=== PATIENT | female | born 1930 | race Caucasian/White ===

== ENCOUNTER → 2017-04-11 | Outpatient (CLI) | payer MEDICARE, OTHER ==
[2013-10-21 09:55] VITALS: BMI 50.0
[~2017-04-11] MED LIST: ACE500 PO; ACET-1966 PO; ACET650T40 PO; ALE70 PO; AMLO-5 PO; AMLO-96 PO; AMLO-99 PO; ANTIBIOTIC; ASC500 PO; ASPI-1471 PO; ASPI-715 PO; ASPI81TA94 PO; ASPIRIN; ATOR20TA22 PO; ATR10 PO; AZIT-17 PO; BILB80CA2 PO; BLOO-1318 MC; CA C1TAB85 PO; CARV12.577 PO; CEFU250 PO; CEPH-13 PO; CEPH500C24 PO; CHOL10005 PO; CHOL200022 PO; CHOL200038 PO; CHOL500045 PO; CHRO200C6 PO; CHRO400T9 PO; CINN500C12 PO; CIPR-212 PO; CLI150 PO; CLON-327 PO; CRAN200C5 PO; CRAN400C2 PO; DOC100 PO; DOCU-194 PO; DOCU-416 PO; DRO400PT PO; DRON400T4 PO; EXE25PT PO; EXEM25TA4 PO; FERR27TA3 PO; FERR325T5 PO; FES4PT PO; FLU IM; FLU45SYR17 IM; FLU45SYR25 IM ONLY; FLU60SYR30 IM ONLY; FLUC150T40 PO; FOLI0.4T56 PO; FOLI0.8T29 PO; FURO-45 PO; FURO20TA19 PO; HCTZ25 PO; Hydrocortisone TP; IRON18TA2 PO; LACT1TAB19; LETPT PO; LEVO250T37 PO; LEVO250T41 PO; LEVO250T55 PO; LEVO25TA56 PO; LEVO50TA86 PO; LOSA-51 PO; LOSA-57 PO; LOSA50TA73 PO; METF-409 PO; METF-420 PO; METH1GPT PO; METH1TAB58 PO; METO-1 PO; METO-259 PO; METO50TA19 PO; NIA100 PO; NIAC500C12 PO; NIAC500C17 PO; NIAC500T85 PO; NITR50CA35 PO; NYST15PO4 TP; NYST1POW24 TOP; OLM20 PO; OLME40TA17 PO; OMEP-125 PO; OMEP-137 PO; OXYB5TAB80 PO; PER PO; PHEN200T32 PO; PIO15 PO; PIOG30TA27 PO; PIOG30TA34 PO; PNEU0.5D3 IM; PRE20 PO; PROM-100 PO; PSYL3.4P2 PO; SIMV-42 PO; SIMV-49 PO; SODI453.2 PO; SPIR1TAB26 PO; SULF-198 PO; TOLT4CAP13 PO; VALE100C2 PO; VIT-7 PO; VIT1CAPS32 PO; VITA400T7 PO; VITE400 PO; WAR5 PO; WARF-12 PO; ZINC50TA2 PO; ZINC50TA43 PO; [UNRECOGNIZED DRUG - CODE] MC; [UNRECOGNIZED DRUG - CODE] PO; [UNRECOGNIZED DRUG - CODE] PO; [UNRECOGNIZED DRUG - CODE] PO; [UNRECOGNIZED DRUG - CODE] PO; [UNRECOGNIZED DRUG - CODE] PO; [UNRECOGNIZED DRUG - CODE] PO; [UNRECOGNIZED DRUG - CODE] PO; d-3
== END ==
LOC: LAB 12:21
PROVIDERS: ATTEND Physician Assistant
DX: Z51.81 Encounter for therapeutic drug level monitoring (principal); Z79.01 Long term (current) use of anticoagulants; I48.2 Chronic atrial fibrillation
CPT/HCPCS: 36415; 82040; 82247; 82310; 82374; 82435; 82565; 82947; 83735; 84075; 84132; 84155; 84295; 84450; 84460; 84520

== ENCOUNTER 2017-05-23 09:11 | Outpatient (RCR) | payer MEDICARE, OTHER ==
[2013-10-21 09:55] VITALS: Wt 130.5 kg
[2017-05-23 09:37] VITALS: BP 168/66
--- NOTE | 2017-05-25 04:28 | [facility] ONCOLOGY NOTE ---
EVENT DATE: May 23, 2017 CHIEF COMPLAINT/REASON FOR VISIT Ms. Gibson is a pleasant 87-year-old female with stage I ER-positive breast cancer on Aromasin here for followup. ONCOLOGY HISTORY Her oncology history includes the stage I breast cancer of the left breast in March 2011, treated with a unilateral mastectomy and hormonal therapy. She did not require any chemotherapy. She did not tolerate letrozole, and we switched her to Aromasin. She is doing extremely well with this. She would like to continue it beyond the five years based on data showing ten years of use , and I think this is appropriate. She denies any side effects. She does have chronic kidney disease and now has a catheter, unfortunately. Her most recent mammogram of the right breast was negative. Overall she is feeling well, enjoys spending time with family. PAST MEDICAL/SURGICAL HISTORY 1. Atrial fibrillation. 2. Coronary artery disease. 3. Hypertension. 4. 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 5. History of colon cancer in 2003. Currently no evidence of disease. 6. Type 2 diabetes. 7. Stage I breast cancer diagnosed in March of 2011. 8. Multiple surgeries. SOCIAL HISTORY Patient is presented by herself. She has a great-grandson who is now five. FAMILY HISTORY Remarkable for diabetes in multiple family members and colon cancer in her brother. REVIEW OF SYSTEMS CONSTITUTIONAL: No fever, chills, significant weight change. HEENT: No headache or vision changes. CARDIOVASCULAR: No chest pain, dyspnea on exertion or edema. RESPIRATORY: Positive COPD. Positive chronic O2 use. GI: No nausea or vomiting. : No dysuria. She has a catheter. MUSCULOSKELETAL: Positive osteoarthritis. She lives a sedentary lifestyle. ENDOCRINE: No heat or cold intolerance. PSYCHIATRIC: No anxiety or depression. The remainder of the 14-point review of systems is otherwise negative. PHYSICAL EXAMINATION VITAL SIGNS: Blood pressure 166/66, pulse 60, respiratory rate 18, temperature 96.8 Fahrenheit. Oxygen saturation 94% on room air. Weight 130.5 kg. Pain 0/ 10. Fatigue 4/10. GENERAL: Stable condition, resting comfortably in the chair. HEENT: Normocephalic, atraumatic. CARDIOVASCULAR: Regular rate and rhythm. LUNGS: Clear. LYMPHATIC: No appreciable cervical, supraclavicular or axillary adenopathy. CHEST: Left breast mastectomy. SKIN: The patient has multiple actinic keratoses. She had a resection done on her nose, which had positive margins, but would require extensive surgery for more complete margins. Will continue to observe this. Recommend followup with her primary care provider regularly for her skin. The remainder of the physical exam otherwise unremarkable. IMPRESSION AND PLAN Ms. Gibson is a pleasant 87-year-old female with the followin. Stage I breast cancer, ER positive, currently no evidence of disease. Will continue Aromasin for another four years. She is at the six-year balta at this time. We discussed risks and benefits, and she would like to continue it. 2. History of colon cancer in 2003. Currently no evidence of disease. 3. Chronic kidney disease. 4. Hypertension. Recommend followup with her primary care provider. I answered all of her questions today. Billing Return visit level 3. Total time 30 minutes, counselling time 15. MTDD
[2017-06-01] MEDS ORDERED: NYST1POW24 TOP (10:06)
[2017-06-01] MEDS ORDERED: FLUC50TA PO (10:06)
== END 2017-06-15 14:26 | disposition home or self-care (01) ==
LOC: ONC 09:11
PROVIDERS: ATTEND Internal Medicine
DX: Z85.3 Personal history of malignant neoplasm of breast (principal); Z85.038 Personal history of other malignant neoplasm of large intestine; N18.9 Chronic kidney disease, unspecified; I12.9 Hypertensive chronic kidney disease with stage 1 through stage 4 chronic kidney disease, or unspecified chronic kidney disease; J44.9 Chronic obstructive pulmonary disease, unspecified; Z99.81 Dependence on supplemental oxygen; L57.0 Actinic keratosis
CPT/HCPCS: 99212

== ENCOUNTER → 2017-06-30 | Outpatient (CLI) | payer MEDICARE, OTHER ==
[2013-10-21 09:55] VITALS: BMI 50.0
[~2017-06-30] MED LIST changes: +FLUC50TA PO
[2017-06-30 11:39] LABS: PLATELET COUNT, AUTOMATED 191 K/uL (150-450)
== END ==
LOC: LAB 10:45
PROVIDERS: ATTEND Internal Medicine Nephrology
DX: I12.9 Hypertensive chronic kidney disease with stage 1 through stage 4 chronic kidney disease, or unspecified chronic kidney disease (principal); N18.3 Chronic kidney disease, stage 3 (moderate); D63.8 Anemia in other chronic diseases classified elsewhere; N25.81 Secondary hyperparathyroidism of renal origin
CPT/HCPCS: 82040; 82306; 82310; 82374; 82435; 82565; 82947; 83970; 84100; 84132; 84295; 84520; 85025

== ENCOUNTER → 2017-07-04 | Outpatient (REF) | payer MEDICARE, OTHER ==
[2013-10-21 09:55] VITALS: BMI 50.0
== END ==
LOC: ZZSENDIN 15:18
PROVIDERS: ATTEND Internal Medicine Nephrology
DX: N25.81 Secondary hyperparathyroidism of renal origin (principal); D63.8 Anemia in other chronic diseases classified elsewhere; N18.3 Chronic kidney disease, stage 3 (moderate); I12.9 Hypertensive chronic kidney disease with stage 1 through stage 4 chronic kidney disease, or unspecified chronic kidney disease
CPT/HCPCS: 82570; 84156

== ENCOUNTER → 2017-07-06 | Outpatient (CLI) | payer MEDICARE, OTHER ==
[2013-10-21 09:55] VITALS: BMI 50.0
== END ==
LOC: LAB 14:38
PROVIDERS: ATTEND Internal Medicine Nephrology
DX: N18.4 Chronic kidney disease, stage 4 (severe) (principal); R80.9 Proteinuria, unspecified
CPT/HCPCS: 36415; 83883; 86334

== ENCOUNTER → 2017-11-08 | Outpatient (CLI) | payer MEDICARE, OTHER ==
[2013-10-21 09:55] VITALS: BMI 50.0
[~2017-11-08] MED LIST changes: -METF-420 PO; +METF-421 PO
--- NOTE | 2017-11-08 13:46 | RADIOLOGY IMAGING REPORT ---
FACILITY: [facility] [place] PATIENT NAME: Heather Gibson : 1930 MR: [id number] V: [id number] EXAM DATE: ORDERING PHYSICIAN: ZA GUAN TECHNOLOGIST: [facility] Patient: Heather Gibson : 1930 Visit/Account:[id number] Date of Sevice: 11/08/2017 KIDNEYS EXAMINATION: Renal ultrasound. History: Renal insufficiency stage IV, Ramos catheter present COMPARISON STUDIES: October 28, 2016 FINDINGS: Kidneys: Right kidney- 10.7 x 6.9 x 6.3 cmThere is a lobular contour to the right kidney. Also noted Is a 1.3 cm cyst in the midpole Left kidney- 10.9 x 5.6 x 5.2 cm. cm there is a lobular contour to the left kidney. There is a solid heterogeneous mass lower pole the left kidney measuring 3.4 x 3.1 x 2.7 cm. This appears to be incr eased in size when compared to the prior CT from November 19, 2015 at which time the mass measured 2.2 x 2.6 cm. Uniform and symmetric blood flow in each kidney by Doppler ultrasound. Hydronephrosis: none Bladder: Bladder is decompressed with a Ramos catheter Abdominal aorta and IVC: Aorta and IVC are patent by Doppler ultrasound. IMPRESSION: There is a solid heterogeneous mass projecting from the lower pole the left kidney measuring 3.4 x 3. 1 x 2.7 cm. This is increased in size when compared the prior CT from November 19, 2015 and is concern ing for neoplasm Report Dictated By: Daxa Solorzano MD at 11/08/2017 1:36 PM Report E-Signed By: Daxa Solorzano MD at 11/08/2017 1:41 PM WSN:[id number]
== END ==
LOC: US 01:28
PROVIDERS: ATTEND Urology
DX: N28.89 Other specified disorders of kidney and ureter (principal); N28.1 Cyst of kidney, acquired
CPT/HCPCS: 76705

== ENCOUNTER 2017-12-12 10:59 | Outpatient (RCR) | payer MEDICARE, OTHER ==
[2013-10-21 09:55] VITALS: Wt 129.3 kg
[~2017-12-12 10:59] MED LIST changes: +AMLO-111 PO; +AMLO-113 PO; -AMLO-96 PO; -AMLO-99 PO; +CHOL200018 PO; -CHOL200022 PO; -DOCU-194 PO; +DOCU100C56 PO; -METF-421 PO; +METF-452 PO
[2017-12-12 11:19] VITALS: BP 166/69
[2017-12-12 11:21] LABS: PLATELET COUNT, AUTOMATED 183 K/uL (150-450)
[2017-12-13] MEDS ORDERED: INFLUENZA VIRUS VAC 0.5ML SYR IM ONLY ONE (09:50)
[2017-12-13 10:12] VITALS: BP 163/62
--- NOTE | 2017-12-13 22:50 | ONCOLOGY FOLLOW UP NOTE ---
EVENT DATE: December 12, 2017 CHIEF COMPLAINT/REASON FOR VISIT Ms. Gibson is a pleasant, 87-year-old female with a history of stage I, ER- positive breast cancer, on Aromasin, here for followup. HISTORY OF PRESENT ILLNESS Her oncology history is outlined below. She is overall doing quite well. No new issues. She is here with her daughter today, and we discussed her history in more detail today as I have not met her before. ONCOLOGY HISTORY Her oncology history includes the stage I breast cancer of the left breast in March 2011, treated with a unilateral mastectomy and hormonal therapy. She did not require any chemotherapy. She did not tolerate letrozole, and we switched her to Aromasin. She is doing extremely well with this. She would like to continue it beyond the five years based on data showing 10 years of use, and I think this is appropriate. She denies any side effects. She does have chronic kidney disease and now has a catheter, unfortunately. Her most recent mammogram of the right breast was negative. Overall she is feeling well, enjoys spending time with family. PAST MEDICAL/SURGICAL HISTORY 1. Atrial fibrillation. 2. Coronary artery disease. 3. Hypertension. 4. 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 5. History of colon cancer in 2003. Currently, no evidence of disease. 6. Type 2 diabetes. 7. Stage I breast cancer diagnosed in March of 2011. 8. Multiple surgeries. SOCIAL HISTORY Patient is presented by herself. She has a great-grandson who is now five. FAMILY HISTORY Remarkable for diabetes in multiple family members and colon cancer in her brother. REVIEW OF SYSTEMS CONSTITUTIONAL: No fever, chills, significant weight change. HEENT: No headache or vision changes. CARDIOVASCULAR: No chest pain, dyspnea on exertion, or edema. RESPIRATORY: Positive COPD. Positive chronic O2 use. GASTROINTESTINAL: No nausea or vomiting. GENITOURINARY: No dysuria. She has a catheter. MUSCULOSKELETAL: Positive osteoarthritis. She lives a sedentary lifestyle. ENDOCRINE: No heat or cold intolerance. PSYCHIATRIC: No anxiety or depression. The remainder of the 14-point review of systems is otherwise negative. PHYSICAL EXAMINATION VITAL SIGNS: Blood pressure 166/59, pulse 60, respiratory rate 16, temperature 97.6 Fahrenheit, oxygen saturation 94% on 2L. Weight 129.3 kg which is stable compared to six months ago. Pain zero/10. Fatigue zero/10. GENERAL: Stable condition, resting comfortably in the chair. HEENT: Normocephalic, atraumatic. CARDIOVASCULAR: Regular rate and rhythm, but distant heart sounds due to body habitus. ABDOMEN: Soft, obese. EXTREMITIES: No clubbing or cyanosis. LYMPHATIC: No appreciable cervical, supraclavicular, or axillary adenopathy. Remainder of physical exam otherwise unremarkable. IMPRESSION/REPORT/PLAN Ms. Gibson is a pleasant, 87-year-old female with the followin. Stage I, ER-positive breast cancer. 2. History of colon cancer in 2003. 3. Chronic kidney disease. 4. Hypertension. 5. Obesity. She will continue on Aromasin for another four years approximately. The benefits outweigh the risks, and she agrees. She is having "no side effects" with it. I would like to see her every six months. I answered all her questions today. BILLING Return visit level 4. Total time 30 minutes, counselling time 20. Family meeting today. FERMÍN
[2017-12-15] MEDS ORDERED: FLUC50TA PO (16:48)
== END 2018-01-18 08:20 | disposition home or self-care (01) ==
LOC: SPU 10:59
PROVIDERS: ATTEND Internal Medicine
DX: C50.912 Malignant neoplasm of unspecified site of left female breast (principal); Z17.0 Estrogen receptor positive status [ER+]; Z79.811 Long term (current) use of aromatase inhibitors; N18.9 Chronic kidney disease, unspecified; J44.9 Chronic obstructive pulmonary disease, unspecified; Z99.81 Dependence on supplemental oxygen; E11.9 Type 2 diabetes mellitus without complications; Z85.038 Personal history of other malignant neoplasm of large intestine; I10 Essential (primary) hypertension; Z23 Encounter for immunization
CPT/HCPCS: 36415; 85025; 90471; Q2037; 82040; 82247; 82310; 82374; 82435; 82565; 82947; 84075; 84132; 84155; 84295; 84450; 84460; 84520; 90674

== ENCOUNTER → 2017-12-13 | Outpatient (CLI) | payer MEDICARE, OTHER ==
[2013-10-21 09:55] VITALS: BMI 50.0
== END ==
LOC: SPU 08:34
PROVIDERS: ATTEND Urology
DX: C50.912 Malignant neoplasm of unspecified site of left female breast (principal); Z17.0 Estrogen receptor positive status [ER+]

== ENCOUNTER → 2018-03-01 | Outpatient (CLI) | payer MEDICARE, OTHER ==
[2013-10-21 09:55] VITALS: BMI 50.0
[2018-03-01 10:43] LABS: PLATELET COUNT, AUTOMATED 194 K/uL (150-450)
== END ==
LOC: LAB 10:19
PROVIDERS: ATTEND Internal Medicine
DX: I48.91 Unspecified atrial fibrillation (principal); N18.9 Chronic kidney disease, unspecified; E78.00 Pure hypercholesterolemia, unspecified; E11.9 Type 2 diabetes mellitus without complications
CPT/HCPCS: 36415; 82040; 82247; 82306; 82310; 82374; 82435; 82465; 82565; 82947; 83036; 83718; 84075; 84132; 84155; 84295; 84439; 84443; 84450; 84460; 84478; 84520; 85025

== ENCOUNTER → 2018-05-05 | Outpatient (REF) | payer MEDICARE, OTHER ==
[2013-10-21 09:55] VITALS: BMI 50.0
[~2018-05-05] MED LIST changes: -AMLO-111 PO; -AMLO-113 PO; +AMLO-125 PO; +AMLO-127 PO
== END ==
LOC: ZZSENDIN 13:26
PROVIDERS: ATTEND Internal Medicine Cardiovascular Disease
DX: R82.90 Unspecified abnormal findings in urine (principal); B96.1 Klebsiella pneumoniae [K. pneumoniae] as the cause of diseases classified elsewhere
CPT/HCPCS: 81001; 87077; 87088; 87186

== ENCOUNTER 2018-05-22 16:41 | Inpatient (IN) | payer MEDICARE, OTHER ==
[~2018-05-22] VITALS: Ht 160 cm; Wt 138.3 kg
[~2018-05-22 16:41] MED LIST changes: -HYDR25TA66 PO
[2018-05-22] MEDS ORDERED: NS(*) 0.9% 500 ML BAG 500 ML IV ONE (16:42)
--- NOTE | 2018-05-22 16:42 | ER Report ---
History and Physical Time Seen By MD: 16:42 HPI/ROS CHIEF COMPLAINT: Nausea and vomiting HISTORY OF PRESENT ILLNESS: This is an 88-year-old female who presents emergency department via EMS for nausea and vomiting. Patient was diagnosed with a urinary tract infection yesterday, started on "some antibiotic", and then began to have severe nausea and vomiting last night and continued throughout the night and today, called EMS for emergent transport to the emergency department. Patient arrives with severe nausea, no vomiting at this time. She denies shortness of breath or chest pain. Last bowel movement was yesterday, nothing today, patient states she typically has BMs on a daily basis. No fevers or chills. No rashes. She does state that her urine is turning blue in her Ramos bag. Does have a history of stage IV renal disease. REVIEW OF SYSTEMS: Constitutional: No fever, no chills. Eyes: No discharge. ENT: No sore throat. Cardiovascular: No chest pain, no palpitations. Respiratory: No cough, no shortness of breath. Gastrointestinal: As above. Genitourinary: As above. Musculoskeletal: No back pain. Skin: No rashes. Neurological: No headache. Allergies: Coded Allergies: morphine (Verified Allergy, Severe, dyspnea, 10/11/13) DECREASED RESPIRATORY RATE "AUTO REFLEX STOPS WORKING" letrozole (Unverified Allergy, Mild, itchy, hives, 10/12/13) SALO Inhibitors (Unverified Allergy, Unknown, 10/12/13) codeine (Verified Adverse Reaction, Mild, NAUSEA/VOMITING, 10/11/13) Home Meds Active Scripts Simvastatin (SIMVASTATIN) 20 Mg Tablet, 1 TAB PO HS, #90 TAB 3 Refills Prov:FERNIE REID MD 05/09/18 Omeprazole (OMEPRAZOLE) 20 Mg Capsule.dr, 1 CAP PO DAILY PRN for REFLUX, #90 CAP 3 Refills Prov:FERNIE REID MD 03/01/18 Exemestane (AROMASIN) 25 Mg Tab, 25 MG PO QHS, #90 TAB 3 Refills Prov:AASHISH REEVES MD 02/22/18 Levothyroxine Sodium (LEVOTHYROXINE SODIUM) 50 Mcg Tablet, 1 TAB PO QDAY, #90 TAB 3 Refills Prov:FERNIE REID MD 6/5/18 Furosemide (FUROSEMIDE) 20 Mg Tablet, 1 TAB PO QDAY, #30 TAB 5 Refills Prov:FERNIE REID MD 07/06/17 Amlodipine Besylate (AMLODIPINE BESYLATE) 10 Mg Tablet, 1 TAB PO QDAY, #90 TAB 4 Refills TAKE ONE TABLET BY MOUTH EVERY DAY Prov:FERNIE REID MD 03/10/17 One Touch Ultra Test Strips (ONE TOUCH ULTRA TEST STRIPS) 1 Each Strip, 1 EACH MC QDAY, #100 STRIP 3 Refills Use once a day to test blood sugar Prov:FERNIE REID MD 11/05/15 Aspirin (ASPIRIN) 81 Mg Tab.chew, 81 MG PO 3XW, #100 TAB.CHEW 4 Refills TAKE 1 TABLET BY MOUTH EVERY DAY Prov:EILEEN REED MD 04/10/14 Reported Medications Methenamine Hippurate (METHENAMINE HIPPURATE) 1 Gm Tablet, 1 GM PO BID 03/01/18 Cholecalciferol (Vitamin D3) (VITAMIN D3) 1,000 Unit Tablet, 1000 UNIT PO QDAY, TAB 01/14/16 Psyllium Seed (METAMUCIL) 1 Each Packet, 1 PACK PO QDAY, PACKET 07/08/15 Acetaminophen (ACETAMINOPHEN) 650 Mg Tablet.er, 1 TAB PO Q8H, TAB 11/08/14 Dronedarone Hcl (MULTAQ) 400 Mg Tablet, 1 TAB PO DAILY, #90 TAB 3 Refills 04/10/14 Cranberry Extract (CRANBERRY) 200 Mg Capsule, 84 MG PO DAILY, CAPSULE 11/13/13 Past Medical/Surgical History The patient has a past medical and surgical history of A. fib, pacemaker, congestive heart failure, hypertension, history of smoking, continue his oxygen use, gallstones, indwelling urinary catheter, progressive renal disease, arthritis, osteoporosis, right ankle fracture, left tibia fracture, chronic back pain, wears glasses, type II diabetes controlled with medications, on Coumadin, colon cancer, chemotherapy for colon cancer, colon resection, bilateral total knee replacements, tonsillectomy, cataract surgery. Reviewed Nurses Notes: Yes Hx Smoking: No Smoking Status: Former Smoker Hx Substance Use Disorder: No Hx Alcohol Use: No Constitutional Vital Sign - Last 24 Hours 05/22/18 05/22/18 05/22/18 05/22/18 16:41 16:43 16:54 16:56 Temp 97.8 Pulse ??? 62 65 Resp 18 B/P (MAP) 154/141 (145) 154/141 Pulse Ox 63 91 O2 Delivery Room Air 05/22/18 05/22/18 05/22/18 05/22/18 16:57 17:11 17:26 17:35 Pulse 60 62 Resp 25 12 B/P (MAP) 143/52 (82) 147/61 (89) Pulse Ox 89 92 05/22/18 05/22/18 05/22/18 05/22/18 17:41 17:55 17:56 18:11 Pulse 59 ? Resp 12 18 Pulse Ox 94 62 O2 Flow Rate 3.0 05/22/18 05/22/18 05/22/18 05/22/18 18:26 18:31 19:01 19:31 Pulse 62 62 63 ??? Resp 12 20 14 35 Pulse Ox 92 89 94 81 05/22/18 19:36 Pulse 63 Resp 17 Pulse Ox 88 Physical Exam General Appearance: The patient is alert, has no immediate need for airway protection and no signs of toxicity. Eyes: Pupils equal and round no pallor or injection. ENT, Mouth: Mucous membranes are moist. Respiratory: There are no retractions, lungs are clear to auscultation. Cardiovascular: Regular rate and rhythm, very distant, systolic murmur, no clicks or rubs. Gastrointestinal: Abdomen is very round, nontender, hypoactive bowel sounds, no masses, no abdominal bruits. Neurological: Alert and oriented 4. Moving all extremities. Following all commands. No focal neuro deficits. Skin: Warm and dry, no rashes. Musculoskeletal: Neck is supple non tender. Extremities are nontender, nonswollen and have full range of motion. DIFFERENTIAL DIAGNOSIS: After history and physical exam differential diagnosis was considered for urosepsis, pneumonia, gastroenteritis, bowel obstruction, myocardial infarction. Medical Decision Making Data Points Result Diagram: 05/22/18 1735 05/22/18 1735 Laboratory Hematology Test 05/22/18 17:10 05/22/18 17:35 05/22/18 18:00 Influenza Virus Type A (PCR) Negative (NEGATIVE) Influenza Virus Type B (PCR) Negative (NEGATIVE) Red Blood Count 3.69 M/uL (4.17-5.56) Mean Corpuscular Volume 94.9 fL (80.0-96.0) Mean Corpuscular Hemoglobin 30.9 pg (26.0-33.0) Mean Corpuscular Hemoglobin Concent 32.6 g/dL (32.0-36.0) Red Cell Distribution Width 14.3 % (11.5-14.5) Mean Platelet Volume 9.0 fL (7.2-11.1) Neutrophils (%) (Auto) 79.8 % (39.4-72.5) Lymphocytes (%) (Auto) 9.1 % (17.6-49.6) Monocytes (%) (Auto) 10.5 % (4.1-12.4) Eosinophils (%) (Auto) 0.3 % (0.4-6.7) Basophils (%) (Auto) 0.3 % (0.3-1.4) Nucleated RBC Relative Count (auto) 0.0 /100WBC Neutrophils # (Auto) 5.1 K/uL (2.0-7.4) Lymphocytes # (Auto) 0.6 K/uL (1.3-3.6) Monocytes # (Auto) 0.7 K/uL (0.3-1.0) Eosinophils # (Auto) 0.0 K/uL (0.0-0.5) Basophils # (Auto) 0.0 K/uL (0.0-0.1) Nucleated RBC Absolute Count (auto) 0.00 K/uL Sodium Level 138 mmol/L (137-145) Potassium Level 4.6 mmol/L (3.5-5.0) Chloride Level 101 mmol/L (98-107) Carbon Dioxide Level 25 mmol/L (22-31) Blood Urea Nitrogen 49 mg/dl (7-18) Creatinine 2.70 mg/dl (0.52-1.04) Glomerular Filtration Rate Calc 16.7 Random Glucose 137 mg/dl (75-110) Calcium Level 9.5 mg/dl (8.4-10.2) Total Bilirubin 0.4 mg/dl (0.2-1.3) Aspartate Amino Transf (AST/SGOT) 38 U/L (0-35) Alanine Aminotransferase (ALT/SGPT) 33 U/L (0-56) Alkaline Phosphatase 92 U/L (0-126) Troponin I 0.022 ng/ml Total Protein 7.0 g/dl (6.3-8.2) Albumin 3.8 g/dl (3.5-5.0) Lipase 38 U/L (23-300) Urine Color Yellow Urine Clarity Cloudy Urine pH 7.0 pH (4.8-9.5) Urine Specific [place] 1.018 Urine Protein 100 mg/dL (NEGATIVE) Urine Glucose (UA) Negative mg/dL (NEGATIVE) Urine Ketones Negative mg/dL (NEGATIVE) Urine Blood Negative (NEGATIVE) Urine Nitrite Negative (NEGATIVE) Urine Bilirubin Negative (NEGATIVE) Urine Urobilinogen 2.0 mg/dL (0.2-1.9) Urine Leukocyte Esterase Moderate (NEGATIVE) Urine RBC None /HPF (0-2/HPF) Urine WBC 43 /HPF (0-5/HPF) Urine WBC Clumps Few /HPF Urine Squamous Epithelial Cells Many /LPF (</=FEW) Urine Amorphous Crystals Few /HPF Urine Bacteria Moderate /HPF (NONE-FEW) Urine Mucus Few /HPF (NONE-FEW) Chemistry Test 05/22/18 17:10 05/22/18 17:35 05/22/18 18:00 Influenza Virus Type A (PCR) Negative (NEGATIVE) Influenza Virus Type B (PCR) Negative (NEGATIVE) White Blood Count 6.4 k/uL (4.5-11.0) Red Blood Count 3.69 M/uL (4.17-5.56) Hemoglobin 11.4 g/dL (12.0-16.0) Hematocrit 35.0 % (34.0-47.0) Mean Corpuscular Volume 94.9 fL (80.0-96.0) Mean Corpuscular Hemoglobin 30.9 pg (26.0-33.0) Mean Corpuscular Hemoglobin Concent 32.6 g/dL (32.0-36.0) Red Cell Distribution Width 14.3 % (11.5-14.5) Platelet Count 190 K/uL (150-450) Mean Platelet Volume 9.0 fL (7.2-11.1) Neutrophils (%) (Auto) 79.8 % (39.4-72.5) Lymphocytes (%) (Auto) 9.1 % (17.6-49.6) Monocytes (%) (Auto) 10.5 % (4.1-12.4) Eosinophils (%) (Auto) 0.3 % (0.4-6.7) Basophils (%) (Auto) 0.3 % (0.3-1.4) Nucleated RBC Relative Count (auto) 0.0 /100WBC Neutrophils # (Auto) 5.1 K/uL (2.0-7.4) Lymphocytes # (Auto) 0.6 K/uL (1.3-3.6) Monocytes # (Auto) 0.7 K/uL (0.3-1.0) Eosinophils # (Auto) 0.0 K/uL (0.0-0.5) Basophils # (Auto) 0.0 K/uL (0.0-0.1) Nucleated RBC Absolute Count (auto) 0.00 K/uL Glomerular Filtration Rate Calc 16.7 Calcium Level 9.5 mg/dl (8.4-10.2) Total Bilirubin 0.4 mg/dl (0.2-1.3) Aspartate Amino Transf (AST/SGOT) 38 U/L (0-35) Alanine Aminotransferase (ALT/SGPT) 33 U/L (0-56) Alkaline Phosphatase 92 U/L (0-126) Troponin I 0.022 ng/ml Total Protein 7.0 g/dl (6.3-8.2) Albumin 3.8 g/dl (3.5-5.0) Lipase 38 U/L (23-300) Urine Color Yellow Urine Clarity Cloudy Urine pH 7.0 pH (4.8-9.5) Urine Specific [place] 1.018 Urine Protein 100 mg/dL (NEGATIVE) Urine Glucose (UA) Negative mg/dL (NEGATIVE) Urine Ketones Negative mg/dL (NEGATIVE) Urine Blood Negative (NEGATIVE) Urine Nitrite Negative (NEGATIVE) Urine Bilirubin Negative (NEGATIVE) Urine Urobilinogen 2.0 mg/dL (0.2-1.9) Urine Leukocyte Esterase Moderate (NEGATIVE) Urine RBC None /HPF (0-2/HPF) Urine WBC 43 /HPF (0-5/HPF) Urine WBC Clumps Few /HPF Urine Squamous Epithelial Cells Many /LPF (</=FEW) Urine Amorphous Crystals Few /HPF Urine Bacteria Moderate /HPF (NONE-FEW) Urine Mucus Few /HPF (NONE-FEW) Urinalysis Test 05/22/18 18:00 Urine Color Yellow Urine Clarity Cloudy Urine pH 7.0 pH (4.8-9.5) Urine Specific [place] 1.018 Urine Protein 100 mg/dL (NEGATIVE) Urine Glucose (UA) Negative mg/dL (NEGATIVE) Urine Ketones Negative mg/dL (NEGATIVE) Urine Blood Negative (NEGATIVE) Urine Nitrite Negative (NEGATIVE) Urine Bilirubin Negative (NEGATIVE) Urine Urobilinogen 2.0 mg/dL (0.2-1.9) Urine Leukocyte Esterase Moderate (NEGATIVE) Urine RBC None /HPF (0-2/HPF) Urine WBC 43 /HPF (0-5/HPF) Urine WBC Clumps Few /HPF Urine Squamous Epithelial Cells Many /LPF (</=FEW) Urine Amorphous Crystals Few /HPF Urine Bacteria Moderate /HPF (NONE-FEW) Urine Mucus Few /HPF (NONE-FEW) EKG/Imaging EKG Interpretation 12 lead EKG: Time of EKG 1647. Rhythm: Atrial paced rhythm, rate of 65 bpm. [place]: normal QRS: normal ST segments: Appears to be ST elevation in V2, V3 and V4, this is consistent with the patient's previous EKG from 10/11/2013 EKG. No reciprocal changes noted. Imaging Location: [facility] Patient: Heather Gibson : 1930 Visit/Account:[id number] Date of Sevice: 05/22/2018 EXAMINATION: Abdominal series HISTORY: Nausea/vomiting. No bowel movement since yesterday. COMPARISON: CT of the abdomen and pelvis from 11/19/2015 FINDINGS: PA upright view of the chest, AP supine and AP upright views of the abdomen are obtained. Lines/tubes: Right subclavian approach pacer with lead tips in the plane of the right atrium and right ventricle. There are also abandoned left subclavian approach pacer leads which terminate in the right atrium and right ventricle. Bowel gas pattern: Multiple air-fluid levels are seen within the bowel. No dilated loops of small bowel are seen. There is gas and a small to moderate stool content within the large bowel. No evidence of intraperitoneal free air. Soft tissues: Negative. Bony structures: Multilevel disc and facet degenerative changes in the spine. Chest: No focal consolidation or significant pleural effusion. No evidence of pneumothorax. Normal heart size. Calcified plaque at the aortic arch. Pulmonary vascularity is within normal limits. IMPRESSION: Nonspecific bowel gas pattern with multiple air-fluid levels noted within the bowel. No dilated loops of bowel are seen to suggest obstruction. No evidence of intraperitoneal free air. Report Dictated By: Lul Marie MD at 05/22/2018 7:17 PM Report E-Signed By: Lul Marie MD at 05/22/2018 7:22 PM WSN:[id number] ED Course/Re-evaluation Clinical Indication for ER IV: Hydration, IV Access ED Course The patient was admitted to room. A history and physical were obtained. Differential diagnoses were considered. An IV was started. A CBC, CMP were obtained. A 500 mL normal saline bolus was given A UA was collected from the patient's catheter.CBC the white count however there is a left shift, BUN 49, creatinine 2.7, this is consistent with the patient's diagnosis of renal disease, historically she has been around the same level, catheter UA showing moderate leukocyte esterase, 43 white blood cells, epithelial cells urine samra teria. Negative influenza. Abdominal series showing Nonspecific bowel gas pattern with multiple air-fluid levels noted within the bowel. No dilated loops of bowel are seen to suggest obstruction. No evidence of intraperitoneal free air. I did review the laboratory studies and nonobstructive bowel series with the patient and her daughter. As the patient has had over 24 hours of nausea and vomiting with increased weakness and inability to mobilize at home on her own I did recommend admission to the hospital. It is because Dr. Avendano, the hospitalist on-call, he is accepting the patient into the hospital services for weakness and nausea and vomiting. Patient was agreeable with this plan of care, was admitted from the ER to the medical surgical floor. Also to note the patient's room air saturation upon arrival was 63%, she is supposed be wearing her oxygen round the clock. Once she was on 3 L nasal cannula, her oxygen saturations did improve, into the low 90s. 05/22/2018 7:42:37 pm I did speak with Dr. Avendano, hospitalist on-call, he's agreed to admit the patient for weakness, nausea and vomiting. Decision to Disposition Date: May 22, 2018 Decision to Disposition Time: 19:41 Depart Departure Latest Vital Signs Vital Signs Date Time Temp Pulse Resp B/P (MAP) Pulse Ox O2 Delivery O2 Flow Rate FiO2 05/22/18 19:36 63 17 88 3/4/19 17:55 3.0 05/22/18 17:35 147/61 (89) 05/22/18 16:54 97.8 Room Air Impression: Primary Impression: Weakness generalized Additional Impression: Nausea and vomiting Condition: Improved Disposition: Admitted from ER Referrals: FERNIE REID MD (PCP) Problem Qualifiers Additional Impression: Nausea and vomiting Vomiting type: unspecified Vomiting Intractability: unspecified Qualified Codes: R11.2 - Nausea with vomiting, unspecified JOSE STAFFORD [employer] REPA[employer]ER- May 22, 2018 16:42
[2018-05-22] MEDS ORDERED: ONDANSETRON 4 MG/2 ML VIAL IVP ONE (16:45)
--- NOTE | 2018-05-22 16:59 | EKG ---
FACILITY: [facility] [place] PATIENT NAME: LOYDA SALDAÑA : [id number] MR: [id number] V: [id number] EXAM DATE: ORDERING PHYSICIAN: JOSE STAFFORD TECHNOLOGIST: DONALD Caputo Reason : NAUSEA Blood Pressure : / mmHG Vent. Rate : 065 BPM Atrial Rate : 065 BPM P-R Int : 170 ms QRS Dur : 136 ms QT Int : 454 ms P-R-T Axes : 056 103 096 degrees QTc Int : 472 ms Electronic atrial pacemaker Nonspecific intraventricular block Anterolateral infarct , age undetermined Abnormal ECG When compared with ECG of 11-OCT-2013 09:52, Anterior infarct is now present Anterolateral infarct is now present Confirmed by ISABELLA HO ([id number]) on 05/22/2018 10:15:53 PM Referred By: RICO Confirmed By:ISABELLA HO
[2018-05-22 17:44] LABS: PLATELET COUNT, AUTOMATED 190 K/uL (150-450)
--- NOTE | 2018-05-22 19:27 | RADIOLOGY IMAGING REPORT ---
FACILITY: [facility] PATIENT NAME: Heather Gibson : 1930 MR: [id number] V: [id number] EXAM DATE: ORDERING PHYSICIAN: JOSE STAFFORD TECHNOLOGIST: [place] [facility] [place]: Heather Gibson : 1930 Visit/Account:[id number] Date of Sevice: 05/22/2018 EXAMINATION: Abdominal series HISTORY: Nausea/vomiting. No bowel movement since yesterday. COMPARISON: CT of the abdomen and pelvis from 11/19/2015 FINDINGS: PA upright view of the chest, AP supine and AP upright views of the abdomen are obtained. Lines/tubes: Right subclavian approach pacer with lead tips in the plane of the right atrium and rig ht ventricle. There are also abandoned left subclavian approach pacer leads which terminate in the ri ght atrium and right ventricle. Bowel gas pattern: Multiple air-fluid levels are seen within the bowel. No dilated loops of small breanna wel are seen. There is gas and a small to moderate stool content within the large bowel. No evidence of intraperitoneal free air. Soft tissues: Negative. Bony structures: Multilevel disc and facet degenerative changes in the spine. Chest: No focal consolidation or significant pleural effusion. No evidence of pneumothorax. Normal h eart size. Calcified plaque at the aortic arch. Pulmonary vascularity is within normal limits. IMPRESSION: Nonspecific bowel gas pattern with multiple air-fluid levels noted within the bowel. No dilated loops of bowel are seen to suggest obstruction. No evidence of intraperitoneal free air. Report Dictated By: Lul Marie MD at 05/22/2018 7:17 PM Report E-Signed By: Lul Marie MD at 05/22/2018 7:22 PM WSN:[id number]
[2018-05-22 21:02] VITALS: BP 165/68
[2018-05-22] MEDS ORDERED: INFLUENZA VIRUS VAC 0.5ML SYR IM ONLY ONE (21:30)
--- NOTE | 2018-05-22 21:50 | History & Physical ---
History of Present Illness Chief Complaint Nausea and vomiting History of Present Illness This patient presented to the emergency room complaining of nausea and vomiting over the last 24hrs. She also noted that her urine turned blue. She called Dr. Kramer's office and was placed on Bactrim for a suspected UTI. She did not improve and presented to the emergency room for further evaluation. History Problems: (1) Hypothyroid Status: Chronic (2) Chronic renal disease Status: Chronic (3) Malignant neoplasm of breast (female), unspecified site Status: Chronic (4) Hypertension, benign Status: Chronic Home Meds Active Scripts Simvastatin (SIMVASTATIN) 20 Mg Tablet, 1 TAB PO HS, #90 TAB 3 Refills Prov:FERNIE REID MD 05/09/18 Omeprazole (OMEPRAZOLE) 20 Mg Capsule.dr, 1 CAP PO DAILY PRN for REFLUX, #90 CAP 3 Refills Prov:FERNIE REID MD 03/01/18 Exemestane (AROMASIN) 25 Mg Tab, 25 MG PO QHS, #90 TAB 3 Refills Prov:AASHISH REEVES MD 02/22/18 Levothyroxine Sodium (LEVOTHYROXINE SODIUM) 50 Mcg Tablet, 1 TAB PO QDAY, #90 TAB 3 Refills Prov:FERNIE REID MD 08/23/17 Furosemide (FUROSEMIDE) 20 Mg Tablet, 1 TAB PO QDAY, #30 TAB 5 Refills Prov:FERNIE REID MD 07/06/17 Amlodipine Besylate (AMLODIPINE BESYLATE) 10 Mg Tablet, 1 TAB PO QDAY, #90 TAB 4 Refills TAKE ONE TABLET BY MOUTH EVERY DAY Prov:FERNIE REID MD 03/10/17 One Touch Ultra Test Strips (ONE TOUCH ULTRA TEST STRIPS) 1 Each Strip, 1 EACH MC QDAY, #100 STRIP 3 Refills Use once a day to test blood sugar Prov:FERNIE REID MD 11/05/15 Reported Medications Methenamine Hippurate (METHENAMINE HIPPURATE) 1 Gm Tablet, 1 GM PO BID 03/01/18 Cholecalciferol (Vitamin D3) (VITAMIN D3) 1,000 Unit Tablet, 1000 UNIT PO QDAY, TAB 01/14/16 Psyllium Seed (METAMUCIL) 1 Each Packet, 1 PACK PO QDAY, PACKET 07/08/15 Acetaminophen (ACETAMINOPHEN) 650 Mg Tablet.er, 1 TAB PO Q8H, TAB 11/08/14 Dronedarone Hcl (MULTAQ) 400 Mg Tablet, 1 TAB PO DAILY, #90 TAB 3 Refills 04/10/14 Cranberry Extract (CRANBERRY) 200 Mg Capsule, 84 MG PO DAILY, CAPSULE 11/13/13 Discontinued Scripts Aspirin (ASPIRIN) 81 Mg Tab.chew, 81 MG PO 3XW, #100 TAB.CHEW 4 Refills TAKE 1 TABLET BY MOUTH EVERY DAY Prov:EILEEN REED MD 04/10/14 Allergies: Coded Allergies: morphine (Verified Allergy, Severe, dyspnea, 10/11/13) DECREASED RESPIRATORY RATE "AUTO REFLEX STOPS WORKING" letrozole (Unverified Allergy, Mild, itchy, hives, 10/12/13) SALO Inhibitors (Unverified Allergy, Unknown, 10/12/13) codeine (Verified Adverse Reaction, Mild, NAUSEA/VOMITING, 10/11/13) Patient History: FH: CHF (congestive heart failure) FATHER (Cause of CHF), , Age:72 FH: cancer BROTHER, FH: colon cancer BROTHER, BROTHER, FH: coronary artery disease SISTER FH: leukemia MOTHER (cause of Leukemia), , Age:70 FH: lung cancer BROTHER, FH: multiple sclerosis DAUGHTER Hx Smoking: No Smoking Status: Former Smoker Caffeine Intake: Tea Caffeine/Cups Per Day: 3 Hx Alcohol Use: No Hx Substance Use Disorder: No Social Drug Use: Never Review of Systems All Systems Reviewed/Normal: Yes, Except as Noted Gastrointestinal: Nausea, Vomiting Exam Vital Signs Vital Signs Date Time Temp Pulse Resp B/P (MAP) Pulse Ox O2 Delivery O2 Flow Rate FiO2 05/22/18 21:19 95 Oxy Mask 3.0 05/22/18 21:02 97.5 61 18 165/68 (100) Neuro: No Gross deficits Eyes: PERRLA Cardiovascular: Regular Rate and Rhythm Respiratory: Clear to Auscultation GI: Abd Soft and Non-Tender Extremities: No Edema Integumentary: No Cyanosis Medical Decision Making Data Points Result Diagram: 05/22/18 4909 05/22/181734 Assessment and Plan Problems: (1) Nausea and vomiting Status: Acute Assessment & Plan: She did present with 24hrs of nausea and vomiting. This seems to have resolved since arriving to the floor. (2) Generalized weakness Status: Acute Assessment & Plan: She will need therapy evaluations. (3) Blue-colored urine Assessment & Plan: She reports that her urine turned blue in the days leading up to the admission. She does have a chronic Ramos catheter in place. She is afebrile and has a normal WBC. Her urine had leukocytes and bacteria, but was a contaminated sample. We have requested that her catheter be changed and hopefully we can obtain a pure sample. We will place her on IV fluids overnight. (4) Hypothyroid Status: Chronic Assessment & Plan: She is on chronic treatment with Synthroid. (5) Hypertension, benign Status: Chronic Assessment & Plan: She is on chronic treatment with amlodipine and Lasix. (6) Chronic renal insufficiency, stage III (moderate) Status: Acute (7) Morbid obesity with BMI of 50.0-59.9, adult (8) Atrial fibrillation Status: Acute Assessment & Plan: She is on chronic treatment with Multaq. Central Venous Access Medical Necessity for Access: IV Access, Medication Administration Copies to: FERNIE REID MD ; Venous Thromboembolism Antithrombotics Is Pt On Any Antithrombotics?: No Exam Sepsis Risk: No Definite Risk Problem Qualifiers (1) Nausea and vomiting: Vomiting type: unspecified Vomiting Intractability: unspecified Qualified Codes: R11.2 - Nausea with vomiting, unspecified ISABELLA HO DO May 22, 2018 21:50
[2018-05-22] MEDS: PATIENT'S OWN MED PO SCH (22:00)
[2018-05-22] MEDS: NS(*) 0.9% 1000 ML BAG 1,000 ML IV PRN (22:41)
[2018-05-23 02:13] VITALS: BP 138/55
[2018-05-23] MEDS: PROMETHAZINE 25 MG/ML 1 ML AMP IVP PRN ×2 (02:33→11:29)
[2018-05-23] MEDS: LEVOTHYROXINE SOD 0.05 MG TAB PO SCH (05:24)
[2018-05-23 05:42] LABS: PLATELET COUNT, AUTOMATED 180 K/uL (150-450)
[2018-05-23] MEDS: NS(*) 0.9% 1000 ML BAG 1,000 ML IV PRN ×2 (07:29→21:39)
[2018-05-23 07:30] VITALS: BP 137/48
[2018-05-23] MEDS: FUROSEMIDE 20 MG TAB PO SCH (08:42)
[2018-05-23] MEDS: amLODIPine BESYL(*) 5 MG TAB PO SCH (08:43)
[2018-05-23 08:51] VITALS: Ht 160 cm; Wt 138.3 kg
[2018-05-23] MEDS: PATIENT'S OWN MED PO SCH (09:00)
--- NOTE | 2018-05-23 13:40 | NUR ---
Physical Therapy Impression PT/OT co-eval completed for pt safety. Pt requires CGA to ensure safety with FWW due to increased lethargy possibly related to anti nausea medication provided earlier. Pt became more alert after receiving a phone call and was agreeable to transfer to bedside chair to finish her lunch. Physical Therapy Goals 1. Pt to be SBA/Modified indep with bed mobility and supine <> sit 2. Pt to be SBA/Modified indep with sit<>stand 3. Pt to tolerate ambulation x 80' with least restrictive device and SBA/Modified indep 4. Pt to bc up/down one platform step with least restrictive device and CGA/Min assist. Patient's Goals
--- NOTE | 2018-05-23 13:45 | Medical Nutrition Therapy ---
Nutrition Anthropometrics Height (Inches): 63.00 Height (Calculated Centimeters: 160.885387 Weight (Pounds): 281 Weight (Calculated Kilograms): 127.715 Napoleon Nutrition Score: Adequate Napoleon Nutrition Risk Score: 16 Dietary Referral Nutrition Risk Factors: Nutrition Risk Comment: no teeth on admission (dentures at home) Physical Findings Physical Appearance: Morbidly Obese 40+ Skin Appearance Skin Appearance: Edema Edema Location Modifier: Both Edema Location: Lower Extremity Type of Edema: Degree of Edema: 1+ Gastrointestinal Symptoms GI Symtoms: Nausea Tube Present: Bowel Sounds: Recent Bowel Pattern: Stool Characteristics: Nutritional Diagnosis Nutritional Risk Acuity 2: Chronic Renal Failure Nutritional Risk Acuity 3: Morbid Obesity Past Medical History: T2DM, hypothyroid, Chronic aurora and breast CA, CKD, HTN, Low iron lab 08/13/13 Readmit from d/c 1 day prior to new admit 05/23/18: Hypothyroid, chronic renal failure, HTN, malignant neoplasm of breast. Nutritional Acuity: 2-Moderate Nutrition Diagnosis: Increased Nutrient Needs Nutrition Etiology: Physiological Causes Nutrition Problem/Etiology/Sym: Decreased nutrient needs related to physiological causes as evidenced by BMI of 50 (morbid obesity) and chronic renal failure. Energy Requirement: 2226 (MSJ, 1.1 TEF 1.2 AF) Adjusted Energy Requirement Re: 1726 (-500kcal) Protein Requirement: 89 (0.7g AA/kg of BW) Fluid Requirement: 1781 (08mL/kcal) Diet Type: Diet as Tolerated ETHAN/REG Nutrition Intervention: Cont diet as ordered Drug: Diuretics Nutrition Monitoring & Eval Nutrition Goals: Eat 50-100% Meal, Drink > 1500 cc/day RD Patient Assessment Time: [address] Assessment Type: RD Assessment Patient Nutrition Acuity: 2-Moderate Follow Up Date: May 26, 2018 Nutritional Comment: 05/23: Pt admitted for nausea and vomitting, and blue urine. Pt has a hx of hypothyroidism, chronic renal failure, hyptertension, and malignant neoplasm of breast. Pt has elevated creatinine (2.7) and BUN (52) levels. Pt is currently taking furosemide (diuretic), potassium within normal range. Pt is on a ETHAN diet, with no intake charted. -ARMIDA LOWE May 23, 2018 09:11
--- NOTE | 2018-05-23 13:56 | NUR ---
Occupational Therapy Impression OT evaluation completed and goals written. Pt. would benefit from OT services 5 x / week to increase independence in ADL's. Occupational Therapy Goals 1, Pt. to perform toileting activities with Mod I. 2. Pt. to perform showering activities with Min A. 3. Pt. to perform dressing activities with Min A. 4. Pt. to perform grooming activities with I. Patient's Goal
[2018-05-23 16:02] VITALS: BP 137/48
--- NOTE | 2018-05-23 18:12 | Hospitalist Progress Note ---
Subjective Progress Notes Subjective 88F admitted for weakness. RICK overnight, reports sleepy this am. Patient Complains of: Respiratory: No: Cough Gastrointestinal: No Nausea, No Vomiting Physical Exam Vital Signs Date Time Temp Pulse Resp B/P (MAP) Pulse Ox O2 Delivery O2 Flow Rate FiO2 05/23/18 16:02 98.6 62 20 137/48 (77) 97 Nasal Cannula 3.0 Intake and Output 05/23/18 06:59 Intake Total 500 ml Output Total 375 ml Balance 125 ml IV Total 500 ml Output Urine Total 375 ml # Emeses 3 General Appearance: Awake, No Acute Distress, Afebrile Neuro: No Gross deficits ENT: Normal Cardiovascular: Normal Rhythm & Peripheral Pulses Respiratory: No Respiratory Distress GI: Soft and Non-Tender Extremities: Soft and Non Tender, Warm, Pulses, Perfused, Edema Result Diagram: 05/23/1852805/23/18528 Assessment and Plan Problems: (1) Nausea and vomiting Status: Acute Assessment & Plan: She did present with 24hrs of nausea and vomiting. This resolved since arriving to the floor. No further episodes. (2) Generalized weakness Status: Acute Assessment & Plan: PT/OT evaluations pending. (3) Blue-colored urine Assessment & Plan: Resolved. She reports that her urine turned blue in the days leading up to the admission. She does have a chronic Ramos catheter in place. She is afebrile and has a normal WBC. Her urine had leukocytes and bacteria, but was a contaminated sample. We have requested that her catheter be changed and hopefully we can obtain a pure sample. (4) Hypothyroid Status: Chronic Assessment & Plan: She is on chronic treatment with Synthroid. (5) Hypertension, benign Status: Chronic Assessment & Plan: She is on chronic treatment with amlodipine and Lasix. (6) Chronic renal insufficiency, stage III (moderate) Status: Acute (7) Morbid obesity with BMI of 50.0-59.9, adult (8) Atrial fibrillation Status: Acute Assessment & Plan: She is on chronic treatment with Multaq. Central Venous Access Medical Necessity for Access: IV Access, Medication Administration Exam Sepsis Risk: No Definite Risk Problem Qualifiers (1) Nausea and vomiting: Vomiting type: unspecified Vomiting Intractability: unspecified Qualified Codes: R11.2 - Nausea with vomiting, unspecified SONDRA HORTA DO May 23, 2018 18:12
[2018-05-23] MEDS: EXEMESTANE 25 MG TAB PO SCH (21:39)
[2018-05-23 21:47] VITALS: BP 116/100
[2018-05-23 22:58] VITALS: BP 151/63
[2018-05-24 03:48] VITALS: BP 141/55
[2018-05-24] MEDS: LEVOTHYROXINE SOD 0.05 MG TAB PO SCH (05:25)
[2018-05-24] MEDS: NS(*) 0.9% 1000 ML BAG 1,000 ML IV PRN (06:04)
[2018-05-24 07:26] VITALS: BP 156/70
[2018-05-24] MEDS: FUROSEMIDE 20 MG TAB PO SCH (09:00)
[2018-05-24] MEDS: amLODIPine BESYL(*) 5 MG TAB PO SCH (09:00)
[2018-05-24] MEDS: DRONEDARONE HYDROCHLORIDE 400 MG TABLET PO SCH (09:01)
--- NOTE | 2018-05-24 10:00 | RADIOLOGY IMAGING REPORT ---
FAC[place] [facility] [place]IENT NAME: Heather Gibson : 1930 MR: [id number] V: [id number] EXAM DATE: ORDERING PHYSICIAN: ZA GUAN TECHNOLOGIST: Location: [facility] - [place] Patient: Heather Gibson : 1930 Visit/Account:[id number] Date of Sevice: 05/24/2018 CT ABDOMEN PELVIS W/O CON HISTORY: R renal mass TECHNIQUE: Axial images acquired through the abdomen/pelvis. Coronal and sagittal reformatting also performed. No IV contrast administered.Dose Lowering Technique One of the following dose optimization techniques was utilized in the performance of this exam: Autom ated exposure control; adjustment of the mA and/or kV according to the patient's size; or use of an i terative reconstruction technique. Specific details can be referenced in the facility's radiology C T exam operational policy. COMPARISON: CT abdomen and pelvis November 19, 2015 and renal ultrasound November 08, 2017 FINDINGS: Visualized lung bases: There are small bilateral posterior layering pleural effusions and adjacent a irspace consolidation the lower lobes right greater than left. Multiple cardiac leads are noted Hepatobiliary: Negative. Spleen: Negative. Adrenals: Negative. Pancreas: Atrophic pancreas Kidneys ureters and bladder: Again noted is moderate perinephric stranding bilaterally. No evidence of hydronephrosis or hydroureter. Previously noted solid heterogeneous mass lower pole the left nasirn ey has increased in size now measuring 2.8 x 2.7 x 2 cm as opposed to 2.2 x 2.6 x [address] cm [address] the [address] of November 19, 2015. The mass measured 3.4 x 3.1 x 2.7 cm on the previous ultrasound of the [facility]. The apparent difference is likely related to difference in imaging modalities. Urinary bladd er is decompressed with a Ramos catheter therefore not ideally evaluated Genitalia: Negative. GI: Small hiatal hernia. There are multiple dilated fluid-filled loops of small bowel with bowel wa ll thickening measuring up to 3.7 cm in diameter. Appears to be a small bowel obstruction related to a knuckle of small bowel trapped within a ventral hernia just above the level the umbilicus there is mesenteric edema of the surrounding dilated small bowel loops . 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 There are moderate spondylotic changes of the lumbar spine Additional findings: None pertinent. IMPRESSION: When compared to the prior CT from November 19, 2015 of the previously noted 2.2 x 2.6 x 2 cm solid mas s lower pole the left kidney has increased in size and now measures 2.8 x 2.7 x 2 cm. This mass did measure 3.4 x 3.1 x 2.7 cm on a previous ultrasound dated November 08, 2017. Difference may be related to difference in imaging modalities Small bilateral posterior layering pleural effusions with airspace consolidation in the lower lobes r ight greater than left. This may represent atelectasis and or developing infiltrates There is a small bowel obstruction with multiple dilated fluid-filled loops of small bowel measuring up to 3.7 cm in diameter with wall thickening and surrounding mesenteric edema. This obstruction is related to trapped knuckle of small bowel within a ventral hernia just above the umbilicus. Diverticulosis of the colon although no CT evidence of acute diverticulitis Postsurgical changes from a right hemicolectomy. Additional chronic findings as described Results were called to Fabiana GUAN's office at 05/24/2018 9:56 AM. Report Dictated By: Daxa Solorzano MD at 05/24/2018 8:30 AM Report E-Signed By: Daxa Solorzano MD at 05/24/2018 9:56 AM WSN:[id number]
--- NOTE | 2018-05-24 12:01 | NUR ---
Physical Therapy Impression PT/OT co-treat and time split for billing purposes. Pt up in chair and agreeable to ambulate in hallway with chair follow and O2. Pt does requires cues to maintain walker closer to body, as she becomes fatigued and starts to push it too far forward. Physical Therapy Goals 1. Pt to be SBA/Modified indep with bed mobility and supine <> sit 2. Pt to be SBA/Modified indep with sit<>stand 3. Pt to tolerate ambulation x 80' with least restrictive device and SBA/Modified indep 4. Pt to bc up/down one platform step with least restrictive device and CGA/Min assist. Patient's Goals
[2018-05-24 12:06] VITALS: BP 139/57
--- NOTE | 2018-05-24 12:18 | Hospitalist Progress Note ---
Subjective Progress Notes Subjective She reports feeling improved. Some mild lower abdominal discomfort. An episode of diarrhea last evening. Physical Exam Vital Signs Date Time Temp Pulse Resp B/P (MAP) Pulse Ox O2 Delivery O2 Flow Rate FiO2 05/24/18 12:06 98.0 60 20 139/57 (84) 93 Nasal Cannula 05/24/18 07:30 4.0 Intake and Output 05/24/18 07:00 Intake Total 2420 ml Output Total 600 ml Balance 1820 ml Intake Oral 440 ml IV Total 1980 ml Output Urine Total 600 ml # Bowel Movements 1 # Emeses 1 General Appearance: Alert, Awake Cardiovascular: Other (Fairly regular with systolic murmur) Respiratory: Clear to Auscultation Chest: Other (paceamker right upper chest) GI: Other (Obese/soft/BS present/[id number] lump just above umbilicus which is firm, but nontender to palpation) Extremities: Warm, Perfused, Edema Psych: Alert & Oriented X3 Result Diagram: 05/23/1852805/23/18528 Assessment and Plan Problems: (1) Nausea and vomiting Status: Acute Assessment & Plan: She did present with 24hrs of nausea and vomiting. This has resolved since arriving to the floor. She had some diarrhea last night, which has resolved as well. CT scan done to evaluate a known renal mass (Dr. Kramer) shows a ventral hernia with possible associated SBO. She is rather asymptomatic at this time. Will discuss with Dr. Emanuel. (2) Generalized weakness Status: Acute Assessment & Plan: PT/OT to evaluate. (3) Blue-colored urine Assessment & Plan: Resolved. She reports that her urine turned blue in the days leading up to the admission. She does have a chronic Ramos catheter in place. She is afebrile and has a normal WBC. Her urine had leukocytes and bacteria, but was a contaminated sample. We have changed her catheter. Monitor. (4) Hypothyroid Status: Chronic Assessment & Plan: She is on chronic treatment with Synthroid. (5) Hypertension, benign Status: Chronic Assessment & Plan: She is on chronic treatment with amlodipine and Lasix. (6) Chronic renal insufficiency, stage III (moderate) Status: Acute Assessment & Plan: Her creatinine is stable at 2.7, which is at her baseline. (7) Atrial fibrillation Status: Acute Assessment & Plan: She is on chronic treatment with Multaq. She has not been on anticoagulation chronically. (8) Morbid obesity with BMI of 50.0-59.9, adult Central Venous Access Medical Necessity for Access: IV Access, Medication Administration Exam Sepsis Risk: No Definite Risk Problem Qualifiers (1) Nausea and vomiting: Vomiting type: unspecified Vomiting Intractability: unspecified Qualified Codes: R11.2 - Nausea with vomiting, unspecified SHANDRA MOORE MD May 24, 2018 12:18
--- NOTE | 2018-05-24 12:58 | NUR ---
Occupational Therapy Impression Co-treat with PT. Pt. required Min A to perform sponge bath of Upper body and change gown. Pt. ready for d/c to home with Care when medically appropriate. Occupational Therapy Goals 1, Pt. to perform toileting activities with Mod I. 2. Pt. to perform showering activities with Min A. 3. Pt. to perform dressing activities with Min A. 4. Pt. to perform grooming activities with I. Patient's Goal
[2018-05-24 14:53] VITALS: BP 133/64
--- NOTE | 2018-05-24 14:59 | General Surgery Consultation ---
History of Present Illness Requesting Physician Dr. Diana Nix, hospitalist service Reason for Consult Incarcerated ventral hernia with bowel obstruction Chief Complaint Nausea History of Present Illness 88-year-old female who is admitted to the hospitalist service with weakness and nausea and vomiting. They obtained a CT scan to assess a renal lesion and incidentally found was a ventral hernia which is not new however on today's examination there appears to be a bowel obstruction related to the ventral hernia and there is surrounding inflammation around the intra-abdominal region around the fascial defect. The patient denies any pain in this area. At the time when I am visiting with her, she had just eaten lunch and reports nausea. No other complaints today. History Problems: (1) Generalized weakness Status: Chronic (2) Hypothyroid Status: Chronic (3) Hematuria of undiagnosed cause Status: Chronic (4) Chronic renal disease Status: Chronic (5) Recurrent UTI (urinary tract infection) Status: Chronic (6) Malignant neoplasm of breast (female), unspecified site Status: Chronic (7) Hypertension, benign Status: Chronic (8) Anemia Status: Chronic (9) Type 2 diabetes mellitus Status: Chronic (10) Pacemaker Status: Chronic Home Meds Active Scripts Simvastatin (SIMVASTATIN) 20 Mg Tablet, 1 TAB PO HS, #90 TAB 3 Refills Prov:FERNIE REID MD 05/09/18 Omeprazole (OMEPRAZOLE) 20 Mg Capsule.dr, 1 CAP PO DAILY PRN for REFLUX, #90 CAP 3 Refills Prov:FERNIE REID MD 03/01/18 Exemestane (AROMASIN) 25 Mg Tab, 25 MG PO QHS, #90 TAB 3 Refills Prov:AASHISH REEVES MD 02/22/18 Levothyroxine Sodium (LEVOTHYROXINE SODIUM) 50 Mcg Tablet, 1 TAB PO QDAY, #90 TAB 3 Refills Prov:FERNIE REID MD 08/23/17 Furosemide (FUROSEMIDE) 20 Mg Tablet, 1 TAB PO QDAY, #30 TAB 5 Refills Prov:FERNIE REID MD 07/06/17 Amlodipine Besylate (AMLODIPINE BESYLATE) 10 Mg Tablet, 1 TAB PO QDAY, #90 TAB 4 Refills TAKE ONE TABLET BY MOUTH EVERY DAY Prov:FERNIE REID MD 03/10/17 One Touch Ultra Test Strips (ONE TOUCH ULTRA TEST STRIPS) 1 Each Strip, 1 EACH MC QDAY, #100 STRIP 3 Refills Use once a day to test blood sugar Prov:FERNIE REID MD 11/05/15 Reported Medications Methenamine Hippurate (METHENAMINE HIPPURATE) 1 Gm Tablet, 1 GM PO BID 03/01/18 Cholecalciferol (Vitamin D3) (VITAMIN D3) 1,000 Unit Tablet, 1000 UNIT PO QDAY, TAB 01/14/16 Psyllium Seed (METAMUCIL) 1 Each Packet, 1 PACK PO QDAY, PACKET 07/08/15 Acetaminophen (ACETAMINOPHEN) 650 Mg Tablet.er, 1 TAB PO Q8H, TAB 11/08/14 Dronedarone Hcl (MULTAQ) 400 Mg Tablet, 1 TAB PO DAILY, #90 TAB 3 Refills 04/10/14 Discontinued Reported Medications Cranberry Extract (CRANBERRY) 200 Mg Capsule, 84 MG PO DAILY, CAPSULE 11/13/13 Discontinued Scripts Aspirin (ASPIRIN) 81 Mg Tab.chew, 81 MG PO 3XW, #100 TAB.CHEW 4 Refills TAKE 1 TABLET BY MOUTH EVERY DAY Prov:EILEEN REED MD 04/10/14 Allergies: Coded Allergies: morphine (Verified Allergy, Severe, dyspnea, 10/11/13) DECREASED RESPIRATORY RATE "AUTO REFLEX STOPS WORKING" letrozole (Unverified Allergy, Mild, itchy, hives, 10/12/13) SALO Inhibitors (Unverified Allergy, Unknown, 10/12/13) codeine (Verified Adverse Reaction, Mild, NAUSEA/VOMITING, 10/11/13) Family History: FH: CHF (congestive heart failure) FATHER (Cause of CHF), , Age:72 FH: cancer BROTHER, FH: colon cancer BROTHER, BROTHER, FH: coronary artery disease SISTER FH: leukemia MOTHER (cause of Leukemia), , Age:70 FH: lung cancer BROTHER, FH: multiple sclerosis DAUGHTER Review of Systems All Systems Reviewed/Normal: Yes, Except as Noted Gastrointestinal: Nausea Exam Vital Signs Vital Signs Date Time Temp Pulse Resp B/P (MAP) Pulse Ox O2 Delivery O2 Flow Rate FiO2 05/24/18 12:06 98.0 60 20 139/57 (84) 93 Nasal Cannula 05/24/18 07:30 4.0 General Appearance: Alert, Awake, No Acute Distress, Afebrile Neuro: No Gross deficits Eyes: PERRLA GI: Abd Soft and Non-Tender (there is a large ventral hernia in the supraumbilical midline. I worked for 30 minutes trying to reduce this and I reduced some of it but could not get the entire hernia to reduce. There are no overlying skin changes, redness or breakdown.) Extremities: Warm, Perfused Psych: Alert & Oriented X3, Appropriate Mood & Affect Medical Decision Making Data Points Result Diagram: 05/23/1852805/23/18528 Assessment and Plan Problems: (1) Incarcerated ventral hernia Status: Chronic Assessment & Plan: 05/24/18: This patient has an incarcerated ventral hernia that looks like it is causing a small bowel obstruction and she certainly has some symptoms of bowel obstruction although they are not severe at this time. I was unable to reduce the hernia. I have recommended surgical repair of the hernia which may be completed with her without mesh depending on findings and risk for mesh infection after surgery. I will have to assess the intestine and make sure it is viable, she may require a bowel resection if the intestine has been significantly affected by this from a vascular standpoint. I have explained the surgery to her in great detail as well as the alternatives, risks, and expected recovery. She is very nervous about anesthesia she has reported that she has been very slow to recover from anesthesia during a previous operation, I performed a left mastectomy 7 years ago and she was in the hospital for 3 days trying to wake up from anesthesia. I have told her that we really don't have much of a choice if we want to get her to a point where she can eat as the obstruction will persist until the hernia is repaired. I have explained the risks of small or large bowel injury, mesh infection and if mesh is used, hernia recurrence which she is at significant risk for due to her morbid obesity. I have demonstrated the forces she applies on her abdominal wall just and sitting up and breathing as an eye finish trying to reduce the hernia and she tried to sit up in bed in a usual fashion the bulge massively increased in size. This will certainly put her at risk for hernia recurrence. She asked if I could call her daughter and discuss the surgery with her. I attempted to call her daughter, Arti Juan, no unanswered at the number that the patient provided to me. We will try later on again. I will have nursing continue to try to get although the daughter. After this lengthy discussion, the patient indicates her understanding of what is going on and the plan to address it and seems agreeable although nervous with proceeding with surgery. (2) Small bowel obstruction Status: Chronic (3) Morbid obesity with BMI of 50.0-59.9, adult Status: Chronic Central Venous Access Medical Necessity for Access: IV Access, Medication Administration Condition Stable Time Spent: < 30 min Venous Thromboembolism Antithrombotics Is Pt On Any Antithrombotics?: No ISABELLA DHILLON MD May 24, 2018 14:59
[2018-05-24] MEDS ORDERED: NS(*) 0.9% 500 ML BAG 500 ML ONE (16:44)
[2018-05-24] MEDS ORDERED: fentaNYL CITR 250 MCG/5 ML AMP ONE (17:26)
[2018-05-24] MEDS ORDERED: PROPOFOL EMUL(*) 10MG/ML 20 ML 20 ML ONE (17:28)
[2018-05-24] MEDS ORDERED: LIDOCAINE MPF 1% 5 ML VIAL ONE (17:28)
[2018-05-24] MEDS ORDERED: ONDANSETRON 4 MG/2 ML VIAL ONE (17:28)
[2018-05-24] MEDS ORDERED: NORMOSOL R SOLN(*) 1000 ML BAG 1,000 ML IV PRN (17:30)
[2018-05-24] MEDS ORDERED: LIDOCAINE/SOD BICARB 8.4% SYR ID ONE (17:30)
[2018-05-24] MEDS ORDERED: FAMOTIDINE 20 MG/50 ML PREMIX IVPB ONE (17:30)
[2018-05-24] MEDS ORDERED: KETAMINE HCL 200 MG/20 ML MDV ONE (17:31)
--- NOTE | 2018-05-24 18:12 | RADIOLOGY IMAGING REPORT ---
FACILITY: [facility] PATIENT NAME: Heather Gibson : 1930 MR: [id number] V: [id number] EXAM DATE: ORDERING PHYSICIAN: ISABELLA DHILLON TECHNOLOGIST: Location: [facility] Patient: Heather Gibson : 1930 Visit/Account:[id number] Date of Sevice: 05/24/2018 Examination: CHEST SINGLE AP Comparison: 06/07/2016. History: 05/22/2018 and earlier. Findings: Enteric tube is poorly visualized. Pacemaker. Cardiac silhouette is prominent and slightly increased in size in the interval. Increased vascular co ngestion likely with mild indistinctness of the vessel margins. No definite focal consolidation or no dule. No pneumothorax or definite effusion. Osseous structures are intact. IMPRESSION: 1. Increased vascular congestion likely with mild pulmonary edema. 2. Poorly visualized enteric tube. Consider repeat imaging of the chest and upper abdomen if confirma tion of tube location as clinically indicated. Report Dictated By: Rodriguez Mcgrath MD at 05/24/2018 6:04 PM Report E-Signed By: Rodriguez Mcgrath MD at 05/24/2018 6:07 PM WSN:[id number]
--- NOTE | 2018-05-24 19:07 | RADIOLOGY IMAGING REPORT ---
FACILITY: [facility] PATIENT NAME: Heather Gibson : 1930 MR: [id number] V: [id number] EXAM DATE: ORDERING PHYSICIAN: ISABELLA DHILLON TECHNOLOGIST: Location: [facility] Patient: Heather Gibson : 1930 Visit/Account:[id number] Date of Sevice: 05/24/2018 CHEST SINGLE AP Indication: NG placement Comparison: None available Findings: Nasogastric tube with tip projecting over the proximal stomach. The proximal sidehole appears to be within the distal esophagus. Recommend advancing approximately 6 cm. IMPRESSION: 1. As above. Report Dictated By: Melvin Jain MD at 05/24/2018 7:02 PM Report E-Signed By: Melvin Jain MD at 05/24/2018 7:04 PM WSN:[id number]
[2018-05-24] MEDS ORDERED: AMPICILLIN/SULBACT (*) 3 GM VL 3 GM in NS(*) 0.9% 100 ML BAG 100 ML IVPB ONE (19:30)
[2018-05-24 20:05] VITALS: BP 159/52
[2018-05-24] MEDS ORDERED: ePHEDrine 25 MG/5 ML DISP.SYR IVP ONE (21:38)
[2018-05-24] MEDS ORDERED: SUGAMMADEX SOD 500 MG/5 ML SDV ONE (22:03)
[2018-05-24] MEDS ORDERED: fentaNYL CITR 100 MCG/2 ML AMP ONE (23:48)
--- NOTE | 2018-05-24 23:50 | Post Operative Progress Note ---
Post Operative Progress Note Date: May 24, 2018 Time: 23:43 Surgeon: Jenae Dictation number: [id number] Anesthesia: GETA by Dr. Bonilla Pre-Op Diagnosis: Incarcerated ventral hernia with bowel obstruction Post-Op Diagnosis: SIOBHAN Findings: C/W dx, bowel healthy Procedure(s): Ventral hernia repair, no mesh Specimen Removed:(May be N/A): Hernia sac and contents (omentum) Complications: None Fluids: See anesthesia record Estimated Blood Loss: Minimal Date OP Note Dictated: May 24, 2018 Time OP Note Dictated: 23:44 ISABELLA DHILLON MD May 24, 2018 23:50
[2018-05-25] VITALS (28 sets, daily range): BP systolic 113–150; BP diastolic 36–64
--- NOTE | 2018-05-25 01:27 | OPERATIVE REPORT 1 ---
EVENT DATE: May 24, 2018 SURGEON: Jose E Emanuel MD ANESTHESIOLOGIST: Evans Bonilla MD ANESTHESIA: General endotracheal anesthesia. PREOPERATIVE DIAGNOSIS Incarcerated ventral hernia with a small bowel obstruction. POSTOPERATIVE DIAGNOSIS Incarcerated ventral hernia with a small bowel obstruction. PROCEDURE PERFORMED Incarcerated ventral hernia repair, no mesh. COMPLICATIONS None. CONDITION Stable. BLOOD LOSS Minimal. FINDINGS This patient had incarcerated bowel, but it was viable, and once I got in and exposed everything, it was easily reduced back into the abdomen. The fascial defect was approximately the size of a 50-cent piece. It was closed primarily without tension with interrupted 0 Ethibond sutures. INDICATIONS This is an 88-year-old female who was admitted to the hospitalist service with weakness and nausea and vomiting. Her urologist has been following a renal lesion, and so the hospitalist obtained a CT scan of her abdomen and pelvis, and this revealed a ventral hernia that contained small bowel. There was dilation of the bowel with inflammation, and it appeared that the ventral hernia was causing an obstruction, which would explain why she has been feeling poorly for the last week or so. DESCRIPTION OF PROCEDURE Patient was brought to the operating room and placed supine on the operating table. General endotracheal anesthesia was administered, and her abdomen was prepped and draped in a sterile fashion. A time-out was completed, and I anesthetized the skin in the supraumbilical midline and made a vertical incision, dissected through dermis and subcutaneous fat. I immediately identified the herniated contents and sac and dissected completely around all this, all the way down to the fascia, and then dissected around and cleaned off the fascial neck. I then opened up the pertinent/hernia sac at the apex and identified omentum within, and dissected this away from the sac and identified the small bowel, which was also partly adhesed to the sac; but once I freed it up, I could reduce it back into the abdomen. I then amputated the herniated portion of the omentum and passed this off the field and then cut the sac down at the level of the fascia. I cleaned off the fascia superficially and on the deep surface all the way around, and it seemed pretty relaxed to be able to just close it primarily; and with her comorbidities and potential for mesh infection, which would be a bigger deal for this patient, I elected to just close the fascia primarily, which could be done without any tension. I then closed it in a transverse fashion with interrupted 0 Ethibond sutures using a generous amount of sutures to distribute the forces over more sutures. I then irrigated and dried the wound and then placed a 10 mm flat Massimo-Springer drain in the cavity that was occupied by the hernia, and exited inferior and to the right of the wound, and then I sewed the drain to the skin with an 0 silk suture. I then closed the subcutaneous fat in the midline incision with running 3-0 Vicryl suture, and then the skin was closed with running 3-0 Monocryl subcuticular sutures. The skin was cleaned and dried and Steri-Strips were applied, followed by sterile surgical dressing and drain dressings. Patient was awakened and extubated in the operating room and transported to the recovery room in stable condition, having tolerated the procedure without any apparent problems. FERMÍN
[2018-05-25] MEDS ORDERED: AMPICILLIN/SULBACT (*) 3 GM VL 3 GM in NS(*) 0.9% 100 ML BAG 100 ML IVPB SCH ×2 (02:00)
[2018-05-25] MEDS: NS(*) 0.9% 1000 ML BAG 1,000 ML IV PRN ×2 (05:03→17:00)
--- NOTE | 2018-05-25 06:21 | General Surgery Progress Note ---
Subjective Progress Notes Subjective No complaints this morning. A little abdominal pain but not too bad. Physical Exam Vital Signs Date Time Temp Pulse Resp B/P (MAP) Pulse Ox O2 Delivery O2 Flow Rate FiO2 05/25/18 05:30 74 17 120/41 (67) 94 Oxy Mask 6.0 05/25/18 04:15 98.4 05/24/18 23:56 70.0 Intake and Output 05/25/18 07:00 Intake Total 2363 ml Output Total 807 ml Balance 1556 ml Intake Oral 300 ml IV Total 2063 ml Output Urine Total 675 ml Drainage Total 27 ml Estimated Blood Loss 100 ml Other 5 ml General Appearance: Alert, Awake, No Acute Distress, Afebrile GI: Other (Soft, appropriate postop TTP. Dressing C/D/I. CLIFF with sanguinous drainage.) Extremities: Warm, Perfused Result Diagram: 05/23/1852805/23/18528 Assessment and Plan Problems: (1) Incarcerated ventral hernia Status: Resolved Assessment & Plan: 05/24/18: This patient has an incarcerated ventral hernia that looks like it is causing a small bowel obstruction and she certainly has some symptoms of bowel obstruction although they are not severe at this time. I was unable to reduce the hernia. I have recommended surgical repair of the hernia which may be completed with her without mesh depending on findings and risk for mesh infection after surgery. I will have to assess the intestine and make sure it is viable, she may require a bowel resection if the intestine has been significantly affected by this from a vascular standpoint. I have explained the surgery to her in great detail as well as the alternatives, risks, and expected recovery. She is very nervous about anesthesia she has reported that she has been very slow to recover from anesthesia during a previous operation, I performed a left mastectomy 7 years ago and she was in the hospital for 3 days trying to wake up from anesthesia. I have told her that we really don't have much of a choice if we want to get her to a point where she can eat as the obstruction will persist until the hernia is repaired. I have explained the risks of small or large bowel injury, mesh infection and if mesh is used, hernia recurrence which she is at significant risk for due to her morbid obesity. I have demonstrated the forces she applies on her abdominal wall just and sitting up and breathing as an eye finish trying to reduce the hernia and she tried to sit up in bed in a usual fashion the bulge massively increased in size. This will certainly put her at risk for hernia recurrence. She asked if I could call her daughter and discuss the surgery with her. I attempted to call her daughter, Arti Juan, no unanswered at the number that the patient provided to me. We will try later on again. I will have nursing continue to try to get although the daughter. After this lengthy discussion, the patient indicates her understanding of what is going on and the plan to address it and seems agreeable although nervous with proceeding with surgery. 05/25/18: POD#1 s/p ventral hernia repair, no mesh. Doing well. Will start clear diet today. Continue PT/OT, aggressive pulmonary hygiene, IS, ambulation. (2) Small bowel obstruction Status: Resolved (3) Morbid obesity with BMI of 50.0-59.9, adult Status: Chronic Central Venous Access Medical Necessity for Access: IV Access, Medication Administration Condition Stable. Time Spent: < 30 min Exam Sepsis Risk: No Definite Risk ISABELLA DHILLON MD May 25, 2018 06:21
[2018-05-25 07:34] LABS: PLATELET COUNT, AUTOMATED 168 K/uL (150-450)
[2018-05-25] MEDS ORDERED: LEVOTHYROXINE SOD 100 MCG VIAL IVP SCH (09:00)
[2018-05-25] MEDS ORDERED: ENOXAPARIN 30 MG/0.3 ML SYR SC SCH (09:00)
[2018-05-25] MEDS: FUROSEMIDE 20 MG TAB PO SCH (09:07)
[2018-05-25] MEDS: AMPICILLIN/SULBACT (*) 3 GM VL 3 GM in NS(*) 0.9% 100 ML BAG 100 ML IVPB SCH ×2 (09:07→22:16)
[2018-05-25] MEDS: ENOXAPARIN 40 MG/0.4ML SYR SC SCH (09:07)
[2018-05-25] MEDS: PANTOPRAZOLE SOD 40 MG TABEC PO SCH (09:08)
[2018-05-25] MEDS: amLODIPine BESYL(*) 5 MG TAB PO SCH (09:09)
[2018-05-25] MEDS: ACETAMINOPHEN 500 MG TAB PO PRN ×2 (09:41→17:18)
[2018-05-25] MEDS: DRONEDARONE HYDROCHLORIDE 400 MG TABLET PO SCH (09:41)
--- NOTE | 2018-05-25 13:35 | NUR ---
Occupational Therapy Impression Co-treat with PT. Pt. required Mod A x2 to perform log roll OOB. Pt. O2 demand increased from 3.5 L to 5 L with use of oximask, secondary to pt. desating to mid 80's. Pt. may need further rehab prior to d/c to home. Continue with POC. Occupational Therapy Goals 1, Pt. to perform toileting activities with Mod I. 2. Pt. to perform showering activities with Min A. 3. Pt. to perform dressing activities with Min A. 4. Pt. to perform grooming activities with I. Patient's Goal
[2018-05-25] MEDS ORDERED: HYDR25TA66 PO (15:13)
--- NOTE | 2018-05-25 16:07 | Hospitalist Progress Note ---
Subjective Progress Notes Subjective 88F admitted for n/v. RICK overnight, slight abdominal pain at surgical site this am. Patient Complains of: Gastrointestinal: No Nausea, No Vomiting Physical Exam Vital Signs Date Time Temp Pulse Resp B/P (MAP) Pulse Ox O2 Delivery O2 Flow Rate FiO2 05/25/18 15:02 79 22 135/58 (83) 94 Oxy Mask 4.5 05/25/18 12:05 97.8 05/24/18 23:56 70.0 Intake and Output 05/25/18 07:00 Intake Total 2363 ml Output Total 807 ml Balance 1556 ml Intake Oral 300 ml IV Total 2063 ml Output Urine Total 675 ml Drainage Total 27 ml Estimated Blood Loss 100 ml Other 5 ml General Appearance: Awake, No Acute Distress, Afebrile Neuro: No Gross deficits Cardiovascular: Normal Rhythm & Peripheral Pulses (frequent PAC, + diastolic murmur) Respiratory: No Respiratory Distress Extremities: Soft and Non Tender, Warm, Pulses, Perfused Result Diagram: 05/25/1872405/25/18724 Assessment and Plan Problems: (1) Nausea and vomiting Status: Acute Assessment & Plan: She did present with 24hrs of nausea and vomiting. This has resolved since arriving to the floor. She had some diarrhea last night, which has resolved as well. CT scan done to evaluate a known renal mass (Dr. Kramer) shows a ventral hernia with possible associated SBO. Post operative repair of ventral hernia with Dr Emaunel doing well (2) Generalized weakness Status: Acute Assessment & Plan: PT/OT to evaluate. (3) Blue-colored urine Assessment & Plan: Resolved. She reports that her urine turned blue in the days leading up to the admission. She does have a chronic Ramos catheter in place. She is afebrile and has a normal WBC. Her urine had leukocytes and bacteria, but was a contaminated sample. We have changed her catheter. Monitor. (4) Hypothyroid Status: Chronic Assessment & Plan: She is on chronic treatment with Synthroid. (5) Hypertension, benign Status: Chronic Assessment & Plan: She is on chronic treatment with amlodipine and Lasix. (6) Chronic renal insufficiency, stage III (moderate) Status: Acute Assessment & Plan: Her creatinine is stable at her baseline. (7) Atrial fibrillation Status: Acute Assessment & Plan: She is on chronic treatment with Multaq. She has not been on anticoagulation chronically. (8) Morbid obesity with BMI of 50.0-59.9, adult Status: Chronic Central Venous Access Medical Necessity for Access: IV Access, Medication Administration Exam Sepsis Risk: No Definite Risk Problem Qualifiers (1) Nausea and vomiting: Vomiting type: unspecified Vomiting Intractability: unspecified Qualified Codes: R11.2 - Nausea with vomiting, unspecified SONDRA HORTA DO May 25, 2018 16:07
[2018-05-25] MEDS ORDERED: FUROSEMIDE 40 MG/4 ML VIAL IVP ONE (18:35)
[2018-05-25] MEDS: EXEMESTANE 25 MG TAB PO SCH ×2 (21:00→22:16)
[2018-05-26] VITALS: BP 118/66
[2018-05-26 02:21] VITALS: BP 122/84
[2018-05-26] MEDS: LEVOTHYROXINE SOD 0.05 MG TAB PO SCH (06:07)
[2018-05-26 07:44] VITALS: BP 142/104
--- NOTE | 2018-05-26 07:55 | General Surgery Progress Note ---
Subjective Progress Notes Subjective Main complaint is mental confusion. Not much abdominal pain. Feels hungry. Physical Exam Vital Signs Date Time Temp Pulse Resp B/P (MAP) Pulse Ox O2 Delivery O2 Flow Rate FiO2 05/26/18 07:44 98.8 73 16 142/104 (117) 94 Nasal Cannula 4.0 05/24/18 23:56 70.0 Intake and Output 05/26/18 07:00 Intake Total 1901 ml Output Total 1610 ml Balance 291 ml Intake Oral 1310 ml IV Total 591 ml Output Urine Total 1535 ml Drainage Total 75 ml General Appearance: Alert, Awake, No Acute Distress, Afebrile, Other (Seems lucid at the moment.) GI: Other (Soft, appropriate postop TTP, CLIFF with serosanguinous drainage. Dressing C/D/I.) Extremities: Warm, Perfused Result Diagram: 05/25/18 0725 05/26/18 0521 Assessment and Plan Problems: (1) Incarcerated ventral hernia Status: Resolved Assessment & Plan: 05/24/18: This patient has an incarcerated ventral hernia that looks like it is causing a small bowel obstruction and she certainly has some symptoms of bowel obstruction although they are not severe at this time. I was unable to reduce the hernia. I have recommended surgical repair of the hernia which may be completed with her without mesh depending on findings and risk for mesh infection after surgery. I will have to assess the intestine and make sure it is viable, she may require a bowel resection if the intestine has been significantly affected by this from a vascular standpoint. I have explained the surgery to her in great detail as well as the alternatives, risks, and expected recovery. She is very nervous about anesthesia she has reported that she has been very slow to recover from anesthesia during a previous operation, I performed a left mastectomy 7 years ago and she was in the hospital for 3 days trying to wake up from anesthesia. I have told her that we really don't have much of a choice if we want to get her to a point where she can eat as the obstruction will persist until the hernia is repaired. I have explained the risks of small or large bowel injury, mesh infection and if mesh is used, hernia recurrence which she is at significant risk for due to her morbid obesity. I have demonstrated the forces she applies on her abdominal wall just and sitting up and breathing as an eye finish trying to reduce the hernia and she tried to sit up in bed in a usual fashion the bulge massively increased in size. This will certainly put her at risk for hernia recurrence. She asked if I could call her daughter and discuss the surgery with her. I attempted to call her daughter, Arti Juan, no unanswered at the number that the patient provided to me. We will try later on again. I will have nursing continue to try to get although the daughter. After this lengthy discussion, the patient indicates her understanding of what is going on and the plan to address it and seems agreeable although nervous with proceeding with surgery. 05/25/18: POD#1 s/p ventral hernia repair, no mesh. Doing well. Will start clear diet today. Continue PT/OT, aggressive pulmonary hygiene, IS, ambulation. 05/26/18: POD#2. Doing well. Will try regular diet. Pt should ambulate but no straining or lifting more than 10 pounds. (2) Small bowel obstruction Status: Resolved (3) Morbid obesity with BMI of 50.0-59.9, adult Status: Chronic Central Venous Access Medical Necessity for Access: IV Access, Medication Administration Condition Stable. Time Spent: < 30 min Exam Sepsis Risk: No Definite Risk ISABELLA DHILLON MD May 26, 2018 07:55
[2018-05-26] MEDS: ENOXAPARIN 40 MG/0.4ML SYR SC SCH (08:20)
[2018-05-26] MEDS: FUROSEMIDE 20 MG TAB PO SCH ×2 (08:20→11:31)
[2018-05-26] MEDS: PANTOPRAZOLE SOD 40 MG TABEC PO SCH (08:20)
[2018-05-26] MEDS: DRONEDARONE HYDROCHLORIDE 400 MG TABLET PO SCH (08:21)
[2018-05-26] MEDS: amLODIPine BESYL(*) 5 MG TAB PO SCH (08:21)
[2018-05-26] MEDS: ACETAMINOPHEN 500 MG TAB PO PRN ×2 (10:50→20:47)
--- NOTE | 2018-05-26 11:05 | Medical Nutrition Therapy ---
Nutrition Anthropometrics Height (Inches): 63.00 Height (Calculated Centimeters: 160.866519 Weight (Pounds): 304 Weight (Calculated Kilograms): 138.119 BMI: 53.9 Napoleon Nutrition Score: Adequate Napoleon Nutrition Risk Score: 16 Dietary Referral Nutrition Risk Factors: Nutrition Risk Comment: no teeth on admission (dentures at home) Physical Findings Physical Appearance: Morbidly Obese 40+ Skin Appearance Skin Appearance: Edema Edema Location Modifier: Both Edema Location: Lower Extremity Type of Edema: Degree of Edema: 1+ Gastrointestinal Symptoms GI Symtoms: Change in Bowel Pattern Tube Present: Bowel Sounds: Recent Bowel Pattern: Stool Characteristics: Nutritional Diagnosis Nutritional Risk Acuity 2: Chronic Renal Failure Nutritional Risk Acuity 3: Morbid Obesity Past Medical History: T2DM, hypothyroid, Chronic aurora and breast CA, CKD, HTN, Low iron lab 08/13/13 Readmit from d/c 1 day prior to new admit 05/23/18: Hypothyroid, chronic renal failure, HTN, malignant neoplasm of breast. Nutritional Acuity: 2-Moderate Nutrition Diagnosis: Increased Nutrient Needs Nutrition Etiology: Physiological Causes Nutrition Problem/Etiology/Sym: Decreased nutrient needs related to physiological causes as evidenced by BMI of 50 (morbid obesity) and chronic renal failure. Energy Requirement: 2226 (MSJ, 1.1 TEF 1.2 AF) Adjusted Energy Requirement Re: 1726 (-500kcal) Protein Requirement: 89 (0.7g AA/kg of BW) Fluid Requirement: 1781 (08mL/kcal) Diet Type: Diet as Tolerated ETHAN/REG Nutrition Intervention: Cont diet as ordered Drug: Diuretics Nutrition Monitoring & Eval Nutrition Goals: Eat 50-100% Meal Nutrition Monitoring: No current intake RD Patient Assessment Time: [address] Assessment Type: RD Re-Assessment Patient Nutrition Acuity: 2-Moderate Follow Up Date: May 29, 2018 Nutritional Comment: 05/23: Pt admitted for nausea and vomitting, and blue urine. Pt has a hx of hypothyroidism, chronic renal failure, hyptertension, and malignant neoplasm of breast. Pt has elevated creatinine (2.7) and BUN (52) levels. Pt is currently taking furosemide (diuretic), potassium within normal range. Pt is on a ETHAN diet, with no intake charted. -JJ 05/26: Pt underwent ventral hernia repair. Pt has altered mental confusion. Pt has elevated BUN (50), creatinine (2.7), and AST (38) levels. Pt is currently on a ETHAN diet with no intake recorded at this time. -ARMIDA LOWE May 26, 2018 10:34
--- NOTE | 2018-05-26 12:25 | NUR ---
Physical Therapy Impression PT/OT co-treat, time split for billing purposes. Pt. required mod A x2 for log rolling bed mobility. Pt. amb 25' with FWW, 4 L O2 via NC, she required 6L O2 upon sitting for increase in O2 sat. Physical Therapy Goals 1. Pt to be SBA/Modified indep with bed mobility and supine <> sit 2. Pt to be SBA/Modified indep with sit<>stand 3. Pt to tolerate ambulation x 80' with least restrictive device and SBA/Modified indep 4. Pt to bc up/down one platform step with least restrictive device and CGA/Min assist. Patient's Goals
--- NOTE | 2018-05-26 12:52 | NUR ---
Occupational Therapy Impression Co-treat with PT. Pt. required Mod A x2 to perform log roll out of bed. Pt. required CGA to ambulate 25 feet with assistance for O2 equipment. Recommend short term subacute rehab. Continue with POC. Occupational Therapy Goals 1, Pt. to perform toileting activities with Mod I. 2. Pt. to perform showering activities with Min A. 3. Pt. to perform dressing activities with Min A. 4. Pt. to perform grooming activities with I. Patient's Goal
[2018-05-26 15:29] VITALS: BP 155/62
[2018-05-26] MEDS ORDERED: BISACODYL 10 MG SUPP PR ONE (18:05)
[2018-05-26 18:48] VITALS: BP 148/56
[2018-05-26] MEDS: DOCUSATE SODIUM 100 MG CAP PO SCH (20:45)
[2018-05-26] MEDS: EXEMESTANE 25 MG TAB PO SCH (20:45)
[2018-05-26] MEDS: SIMVASTATIN 20 MG TAB PO SCH (20:45)
--- NOTE | 2018-05-26 22:25 | Hospitalist Progress Note ---
Subjective Progress Notes Subjective The patient states she feels better but still not great. She denies further nausea or vomiting. Physical Exam Vital Signs Date Time Temp Pulse Resp B/P (MAP) Pulse Ox O2 Delivery O2 Flow Rate FiO2 05/26/18 18:48 97.7 90 20 148/56 (86) 95 Oxy Mask 3.0 05/24/18 23:56 70.0 Intake and Output 05/26/18 06:59 Intake Total 2381 ml Output Total 1610 ml Balance 771 ml Intake Oral 1790 ml IV Total 591 ml Output Urine Total 1535 ml Drainage Total 75 ml General Appearance: Alert, Awake, No Acute Distress, Afebrile Neuro: No Gross deficits Eyes: PERRLA Cardiovascular: Regular Rate and Rhythm Respiratory: Clear to Auscultation GI: Soft and Non-Tender, Other (Covered surgical scar midline, abdomen, with scant drainage noted. BS+.) Extremities: Warm, Perfused, Edema Integumentary: Other (Midline abdominal surgical wound as above.) Psych: Alert & Oriented X3, Appropriate Mood & Affect Result Diagram: 05/25/1872405/26/18 0521 Assessment and Plan Problems: (1) Nausea and vomiting Status: Acute Assessment & Plan: She did present with 24hrs of nausea and vomiting. CT scan done to evaluate a known renal mass (Dr. Kramer) showed a ventral hernia with possible associated SBO. Post operative repair of ventral hernia with Dr Emanuel. Doing well with resolution of her nausea and vomiting. Her diet is being advanced. (2) Generalized weakness Status: Acute Assessment & Plan: PT/OT to evaluate. (3) Blue-colored urine Assessment & Plan: Resolved. She reports that her urine turned blue in the days leading up to the admission. She does have a chronic Ramos catheter in place. She is afebrile and has a normal WBC. Her urine had leukocytes and bacteria, but was a contaminated sample. We have changed her catheter. Monitor. (4) Hypothyroid Status: Chronic Assessment & Plan: She is on chronic treatment with Synthroid. (5) Hypertension, benign Status: Chronic Assessment & Plan: She is on chronic treatment with amlodipine and Lasix. (6) Chronic renal insufficiency, stage III (moderate) Status: Acute Assessment & Plan: Her creatinine is stable at her baseline. (7) Atrial fibrillation Status: Acute Assessment & Plan: She is on chronic treatment with Multaq. She has not been on anticoagulation chronically. (8) Morbid obesity with BMI of 50.0-59.9, adult Status: Chronic Central Venous Access Medical Necessity for Access: IV Access, Medication Administration Time Spent on Plan of Care: < 30 min Exam Sepsis Risk: No Definite Risk Problem Qualifiers (1) Nausea and vomiting: Vomiting type: unspecified Vomiting Intractability: unspecified Qualified Codes: R11.2 - Nausea with vomiting, unspecified ASHVIN MOORE MD May 26, 2018 22:25
[2018-05-26 22:54] VITALS: BP 143/58
[2018-05-27 03:00] VITALS: BP 144/56
[2018-05-27 06:05] LABS: PLATELET COUNT, AUTOMATED 163 K/uL (150-450)
[2018-05-27] MEDS: LEVOTHYROXINE SOD 0.05 MG TAB PO SCH (06:13)
[2018-05-27 06:59] VITALS: BP 152/77
--- NOTE | 2018-05-27 07:53 | Hospitalist Progress Note ---
Subjective Progress Notes Subjective The patient notes that she is coughing and a bit congested today. Physical Exam Vital Signs Date Time Temp Pulse Resp B/P (MAP) Pulse Ox O2 Delivery O2 Flow Rate FiO2 05/27/18 06:59 97.7 65 21 152/77 (102) 85 Oxy Mask 2.5 05/26/18 20:45 70.0 Intake and Output 05/27/18 06:59 Intake Total 1380 ml Output Total 2200 ml Balance -820 ml Intake Oral 1380 ml Output Urine Total 2150 ml Drainage Total 50 ml # Bowel Movements 2 General Appearance: Alert, Awake, No Acute Distress Neuro: No Gross deficits Eyes: PERRLA Cardiovascular: Regular Rate and Rhythm (With ANGIE.) Respiratory: Clear to Auscultation (Anteriorly. Decreased BS bilaterally in the bases.) GI: Soft and Non-Tender (Midline bandage.) Extremities: Warm, Perfused Psych: Appropriate Mood & Affect Result Diagram: 05/27/1854205/27/18542 Assessment and Plan Problems: (1) Nausea and vomiting Status: Acute Assessment & Plan: She did present with 24hrs of nausea and vomiting. CT scan done to evaluate a known renal mass (Dr. Kramer) showed a ventral hernia with possible associated SBO. Post operative repair of ventral hernia with Dr Emanuel. Doing well with resolution of her nausea and vomiting. Her diet was advanced yesterday and she tolerated it well. (2) Cough Status: Acute Assessment & Plan: The patient complains of productive cough today and feels "congested". Will order CXR. Need to continue good pulmonary toilet. (3) Generalized weakness Status: Acute Assessment & Plan: PT/OT to evaluate. (4) Blue-colored urine Assessment & Plan: Resolved. She reports that her urine turned blue in the days leading up to the admission. She does have a chronic Ramos catheter in place. She is afebrile and has a normal WBC. Her urine had leukocytes and bacteria, but was a contaminated sample. We have changed her catheter. Monitor. (5) Hypothyroid Status: Chronic Assessment & Plan: She is on chronic treatment with Synthroid. (6) Hypertension, benign Status: Chronic Assessment & Plan: She is on chronic treatment with amlodipine and Lasix. (7) Chronic renal insufficiency, stage III (moderate) Status: Acute Assessment & Plan: Her creatinine is stable at her baseline. (8) Atrial fibrillation Status: Acute Assessment & Plan: She is on chronic treatment with Multaq. She has not been on anticoagulation chronically. (9) Morbid obesity with BMI of 50.0-59.9, adult Status: Chronic Central Venous Access Medical Necessity for Access: IV Access, Medication Administration Time Spent on Plan of Care: < 30 min Exam Sepsis Risk: No Definite Risk Problem Qualifiers (1) Nausea and vomiting: Vomiting type: unspecified Vomiting Intractability: unspecified Qualified Codes: R11.2 - Nausea with vomiting, unspecified ASHVIN MOORE MD May 27, 2018 07:53
[2018-05-27] MEDS: FUROSEMIDE 20 MG TAB PO SCH ×2 (09:00→09:57)
--- NOTE | 2018-05-27 09:29 | General Surgery Progress Note ---
Subjective Progress Notes Subjective + BM, up in chair, no complaints Physical Exam Vital Signs Date Time Temp Pulse Resp B/P (MAP) Pulse Ox O2 Delivery O2 Flow Rate FiO2 05/27/18 06:59 97.7 65 21 152/77 (102) 85 Oxy Mask 2.5 05/26/18 20:45 70.0 Intake and Output 05/27/18 06:59 Intake Total 1380 ml Output Total 2200 ml Balance -820 ml Intake Oral 1380 ml Output Urine Total 2150 ml Drainage Total 50 ml # Bowel Movements 2 General Appearance: Alert, Awake, No Acute Distress, Afebrile Cardiovascular: Other (IRRR with 2/6 murmur) Respiratory: No Respiratory Distress, Clear to Auscultation GI: Soft and Non-Tender, Other (obese, incision CDI, CLIFF serosang) Musculoskeletal: No Weakness/Pain Extremities: Soft and Non Tender, Other (+2 edema) Integumentary: Skin Intact without Lesion / Mass Psych: Alert & Oriented X3, Appropriate Mood & Affect Result Diagram: 05/27/18 0543 05/27/18542 Assessment and Plan Problems: (1) Incarcerated ventral hernia Status: Resolved Assessment & Plan: 05/24/18: This patient has an incarcerated ventral hernia that looks like it is causing a small bowel obstruction and she certainly has some symptoms of bowel obstruction although they are not severe at this time. I was unable to reduce the hernia. I have recommended surgical repair of the hernia which may be completed with her without mesh depending on findings and risk for mesh infection after surgery. I will have to assess the intestine and make sure it is viable, she may require a bowel resection if the intestine has been significantly affected by this from a vascular standpoint. I have explained the surgery to her in great detail as well as the alternatives, risks, and expected recovery. She is very nervous about anesthesia she has reported that she has been very slow to recover from anesthesia during a previous operation, I performed a left mastectomy 7 years ago and she was in the hospital for 3 days trying to wake up from anesthesia. I have told her that we really don't have muc h of a choice if we want to get her to a point where she can eat as the obstruction will persist until the hernia is repaired. I have explained the risks of small or large bowel injury, mesh infection and if mesh is used, hernia recurrence which she is at significant risk for due to her morbid obesity. I have demonstrated the forces she applies on her abdominal wall just and sitting up and breathing as an eye finish trying to reduce the hernia and she tried to sit up in bed in a usual fashion the bulge massively increased in size. This will certainly put her at risk for hernia recurrence. She asked if I could call her daughter and discuss the surgery with her. I attempted to call her daughter, Arti Juan, no unanswered at the number that the patient provided to me. We will try later on again. I will have nursing continue to try to get although the daughter. After this lengthy discussion, the patient indicates her understanding of what is going on and the plan to address it and seems agreeable although nervous with proceeding with surgery. 05/25/18: POD#1 s/p ventral hernia repair, no mesh. Doing well. Will start clear diet today. Continue PT/OT, aggressive pulmonary hygiene, IS, ambulation. 05/26/18: POD#2. Doing well. Will try regular diet. Pt should ambulate but no straining or lifting more than 10 pounds. 05/27/18 POD#3: continued post-operative progress. Ileus resolving. Cont to mobilize OOB and pulm toilet. Cont CLIFF given high output. ADAT slowly. ABD bin onel if able to find one to fit appropriately. (2) Small bowel obstruction Status: Resolved (3) Morbid obesity with BMI of 50.0-59.9, adult Status: Chronic Central Venous Access Medical Necessity for Access: IV Access, Medication Administration Time Spent: > 30 min Exam Sepsis Risk: No Definite Risk KIAN SMITH MD May 27, 2018 09:29
[2018-05-27] MEDS: POLYETHYLENE GLYCOL 17 GM PKT PO SCH (09:56)
[2018-05-27] MEDS: DRONEDARONE HYDROCHLORIDE 400 MG TABLET PO SCH (09:57)
[2018-05-27] MEDS: DOCUSATE SODIUM 100 MG CAP PO SCH ×2 (09:57→20:42)
[2018-05-27] MEDS: PANTOPRAZOLE SOD 40 MG TABEC PO SCH (09:57)
[2018-05-27] MEDS: amLODIPine BESYL(*) 5 MG TAB PO SCH (09:57)
[2018-05-27] MEDS: ENOXAPARIN 40 MG/0.4ML SYR SC SCH (09:58)
[2018-05-27] MEDS: ENOXAPARIN 30 MG/0.3 ML SYR SC SCH (10:08)
--- NOTE | 2018-05-27 10:56 | NUR ---
Physical Therapy Impression Pt. required 6L O2 to maintain sats above 80% while ambulatory. Pt. able to return to baseline 2.5L when seated with SpO2 >90%. Pt. ambulation limited by fatigue and pain. Pt. return demo's ther ex with no increase in symptoms. Physical Therapy Goals 1. Pt to be SBA/Modified indep with bed mobility and supine <> sit 2. Pt to be SBA/Modified indep with sit<>stand 3. Pt to tolerate ambulation x 80' with least restrictive device and SBA/Modified indep 4. Pt to bc up/down one platform step with least restrictive device and CGA/Min assist. Patient's Goals
[2018-05-27 11:50] VITALS: BP 153/72
--- NOTE | 2018-05-27 11:58 | RADIOLOGY IMAGING REPORT ---
FACILITY: [facility] PATIENT NAME: Heather Gibson : 1930 MR: [id number] V: [id number] EXAM DATE: ORDERING PHYSICIAN: ASHVIN MOORE TECHNOLOGIST: Location: [facility] Patient: Heather Gibson : 1930 Visit/Account:[id number] Date of Sevice: 05/27/2018 Technique: CHEST SINGLE AP HISTORY: cough/congestion COMPARISON: Chest radiograph 05/07/2016 Findings: Redemonstrated is central vascular congestion. There is a low degree of inspiration. No acu te airspace consolidation. Right chest wall pacer and cardiac silhouette are unchanged. IMPRESSION: 1. No acute cardiac pulmonary process. 2. Unchanged central vascular congestion. Report Dictated By: Dre Farrell DO at 05/27/2018 11:50 AM Report E-Signed By: Dre Farrell DO at 05/27/2018 11:54 AM WSN:[id number]
[2018-05-27 16:38] VITALS: BP 140/53
[2018-05-27 20:38] VITALS: BP 166/63
[2018-05-27] MEDS: ACETAMINOPHEN 500 MG TAB PO PRN (20:42)
[2018-05-27] MEDS: SIMVASTATIN 20 MG TAB PO SCH (20:42)
[2018-05-27] MEDS: EXEMESTANE 25 MG TAB PO SCH (20:42)
[2018-05-27 23:37] VITALS: BP 143/56
[2018-05-28 03:47] VITALS: BP 166/66
[2018-05-28] MEDS: LEVOTHYROXINE SOD 0.05 MG TAB PO SCH (06:14)
[2018-05-28 06:17] LABS: PLATELET COUNT, AUTOMATED 183 K/uL (150-450)
[2018-05-28 07:27] VITALS: BP 159/58
--- NOTE | 2018-05-28 08:04 | General Surgery Progress Note ---
Subjective Progress Notes Subjective no complaints, + BM Physical Exam Vital Signs Date Time Temp Pulse Resp B/P (MAP) Pulse Ox O2 Delivery O2 Flow Rate FiO2 05/28/18 07:27 97.8 69 20 159/58 (91) Nasal Cannula 2.5 05/28/18 03:47 94 05/26/18 20:45 70.0 Intake and Output 05/28/18 06:59 Intake Total 220 ml Output Total 2075 ml Balance -1855 ml Intake Oral 220 ml Output Urine Total 2050 ml Drainage Total 25 ml General Appearance: Alert, Awake, No Acute Distress, Afebrile Neuro: No Gross deficits Cardiovascular: Normal Rhythm & Peripheral Pulses Respiratory: No Respiratory Distress, Clear to Auscultation GI: Soft and Non-Tender, Other (+ BS, incision clean) Musculoskeletal: No Weakness/Pain, Other (trace edema) Integumentary: Skin Intact without Lesion / Mass Psych: Alert & Oriented X3, Appropriate Mood & Affect Result Diagram: 05/28/1853805/28/18538 Assessment and Plan Problems: (1) Incarcerated ventral hernia Status: Resolved Assessment & Plan: 05/24/18: This patient has an incarcerated ventral hernia that looks like it is causing a small bowel obstruction and she certainly has some symptoms of bowel obstruction although they are not severe at this time. I was unable to reduce the hernia. I have recommended surgical repair of the hernia which may be completed with her without mesh depending on findings and risk for mesh infection after surgery. I will have to assess the intestine and make sure it is viable, she may require a bowel resection if the intestine has been significantly affected by this from a vascular standpoint. I have explained the surgery to her in great detail as well as the alternatives, risks, and expected recovery. She is very nervous about anesthesia she has reported that she has been very slow to recover from anesthesia during a previous operation, I performed a left mastectomy 7 years ago and she was in the hospital for 3 days trying to wake up from anesthesia. I have told her that we really don't have much of a choice if we want to get her to a point where she can eat as the obstruction will persist until the hernia is repaired. I have explained the risks of small or large bowel injury, mesh infection and if mesh is used, hernia recurrence which she is at significant risk for due to her morbid obesity. I have demonstrated the forces she applies on her abdominal wall just and sitting up and breathing as an eye finish trying to reduce the hernia and she tried to sit up in bed in a usual fashion the bulge massively increased in size. This will certainly put her at risk for hernia recurrence. She asked if I could call her daughter and discuss the surgery with her. I attempted to call her daughter, Arti Juan, no unanswered at the number that the patient provided to me. We will try later on again. I will have nursing continue to try to get although the daughter. After this lengthy discussion, the patient indicates her understanding of what is going on and the plan to address it and seems agreeable although nervous with proceeding with surgery. 05/25/18: POD#1 s/p ventral hernia repair, no mesh. Doing well. Will start clear diet today. Continue PT/OT, aggressive pulmonary hygiene, IS, ambulation. 05/26/18: POD#2. Doing well. Will try regular diet. Pt should ambulate but no straining or lifting more than 10 pounds. 05/27/18 POD#3: continued post-operative progress. Ileus resolving. Cont to mobilize OOB and pulm toilet. Cont CLIFF given high output. ADAT slowly. ABD binder if able to find one to fit appropriately. 05/28/18 POD#4: stable progress. Return of normal bowel function. ADAT. Should be able to go home in next 1-2 days with [facility]. (2) Small bowel obstruction Status: Resolved (3) Morbid obesity with BMI of 50.0-59.9, adult Status: Chronic Central Venous Access Medical Necessity for Access: IV Access, Medication Administration Exam Sepsis Risk: No Definite Risk KIAN SMITH MD May 28, 2018 08:04
[2018-05-28] MEDS: DRONEDARONE HYDROCHLORIDE 400 MG TABLET PO SCH (08:27)
[2018-05-28] MEDS: DOCUSATE SODIUM 100 MG CAP PO SCH ×2 (08:28→20:15)
[2018-05-28] MEDS: FUROSEMIDE 20 MG TAB PO SCH (08:28)
[2018-05-28] MEDS: PANTOPRAZOLE SOD 40 MG TABEC PO SCH (08:28)
[2018-05-28] MEDS: amLODIPine BESYL(*) 5 MG TAB PO SCH (08:28)
[2018-05-28] MEDS: POLYETHYLENE GLYCOL 17 GM PKT PO SCH (08:28)
[2018-05-28] MEDS: ENOXAPARIN 30 MG/0.3 ML SYR SC SCH (08:28)
--- NOTE | 2018-05-28 10:36 | Hospitalist Progress Note ---
Subjective Progress Notes Subjective This patient was admitted for nausea and vomiting. She had no acute events overnight. Patient Complains of: Cardiovascular: No: Chest Pain Respiratory: No: Shortness of Breath Physical Exam Vital Signs Date Time Temp Pulse Resp B/P (MAP) Pulse Ox O2 Delivery O2 Flow Rate FiO2 05/28/18 07:27 97.8 69 20 159/58 (91) Nasal Cannula 2.5 05/28/18 03:47 94 05/26/18 20:45 70.0 Intake and Output 05/28/18 07:00 Intake Total 220 ml Output Total 2055 ml Balance -1835 ml Intake Oral 220 ml Output Urine Total 2050 ml Drainage Total 5 ml Cardiovascular: Regular Rate and Rhythm Respiratory: Clear to Auscultation GI: Soft and Non-Tender Result Diagram: 05/28/1853805/28/18538 Assessment and Plan Problems: (1) Small bowel obstruction Status: Resolved Assessment & Plan: She did present with nausea and vomiting. A CT scan showed a bowel obstruction related to a ventral hernia. She underwent operative repair with Dr. Emanuel on 05/24. (2) Generalized weakness Status: Acute Assessment & Plan: PT/OT to evaluate. (3) Blue-colored urine Assessment & Plan: Resolved. She reports that her urine turned blue in the days leading up to the admission. She does have a chronic Ramos catheter in place. She is afebrile and has a normal WBC. Her urine had leukocytes and bacteria, but was a contaminated sample. We have changed her catheter. Monitor. (4) Hypothyroid Status: Chronic Assessment & Plan: She is on chronic treatment with Synthroid. (5) Hypertension, benign Status: Chronic Assessment & Plan: She is on chronic treatment with amlodipine and Lasix. (6) Chronic renal insufficiency, stage III (moderate) Status: Acute Assessment & Plan: Her creatinine is stable at her baseline. (7) Atrial fibrillation Status: Acute Assessment & Plan: She is on chronic treatment with Multaq. She has not been on anticoagulation chronically. (8) Morbid obesity with BMI of 50.0-59.9, adult Status: Chronic Central Venous Access Medical Necessity for Access: IV Access, Medication Administration Exam Sepsis Risk: No Definite Risk ISABELLA HO DO May 28, 2018 10:36
[2018-05-28 12:01] VITALS: BP 163/65
[2018-05-28 15:55] VITALS: BP 149/52
[2018-05-28 19:21] VITALS: BP 154/61
[2018-05-28] MEDS: EXEMESTANE 25 MG TAB PO SCH (20:15)
[2018-05-28] MEDS: SIMVASTATIN 20 MG TAB PO SCH (20:15)
[2018-05-29] MEDS: LEVOTHYROXINE SOD 0.05 MG TAB PO SCH (05:32)
--- NOTE | 2018-05-29 08:24 | General Surgery Progress Note ---
Subjective Progress Notes Subjective No complaints this morning. Not much pain. Tolerating regular diet. Passing flatus and BMs. No N/V. Physical Exam Vital Signs Date Time Temp Pulse Resp B/P (MAP) Pulse Ox O2 Delivery O2 Flow Rate FiO2 05/28/18 20:00 95 Oxy Mask 2.5 05/28/18 19:21 98.5 70 14 154/61 (92) 05/26/18 20:45 70.0 Intake and Output 05/29/18 06:59 Intake Total 240 ml Output Total 3580 ml Balance -3340 ml Intake Oral 240 ml Output Urine Total 3575 ml Drainage Total 5 ml # Bowel Movements 2 General Appearance: Alert, Awake, No Acute Distress, Afebrile GI: Other (Soft, minimal postop TTP, incision looks good, no erythema or drainage. CLIFF drain with minimal serous drainage.) Extremities: Warm, Perfused Result Diagram: 05/28/1853805/28/18538 Assessment and Plan Problems: (1) Incarcerated ventral hernia Status: Resolved Assessment & Plan: 05/24/18: This patient has an incarcerated ventral hernia that looks like it is causing a small bowel obstruction and she certainly has some symptoms of bowel obstruction although they are not severe at this time. I was unable to reduce the hernia. I have recommended surgical repair of the hernia which may be completed with her without mesh depending on findings and risk for mesh infection after surgery. I will have to assess the intestine and make sure it is viable, she may require a bowel resection if the intestine has been significantly affected by this from a vascular standpoint. I have explained the surgery to her in great detail as well as the alternatives, risks, and expected recovery. She is very nervous about anesthesia she has reported that she has been very slow to recover from anesthesia during a previous operation, I performed a left mastectomy 7 years ago and she was in the hospital for 3 days trying to wake up from anesthesia. I have told her that we really don't have much of a choice if we want to get her to a point where she can eat as the obstruction will persist until the hernia is repaired. I have explained the risks of small or large bowel injury, mesh infection and if mesh is used, hernia recurrence which she is at significant risk for due to her morbid obesity. I have demonstrated the forces she applies on her abdominal wall just and sitting up and breathing as an eye finish trying to reduce the hernia and she tried to sit up in bed in a usual fashion the bulge massively increased in size. This will certainly put her at risk for hernia recurrence. She asked if I could call her daughter and discuss the surgery with her. I attempted to call her daughter, Arti Juan, no unanswered at the number that the patient provided to me. We will try later on again. I will have nursing continue to try to get although the daughter. After this lengthy discussion, the patient indicates her understanding of what is going on and the plan to address it and seems agreeable although nervous with proceeding with surgery. 05/25/18: POD#1 s/p ventral hernia repair, no mesh. Doing well. Will start clear diet today. Continue PT/OT, aggressive pulmonary hygiene, IS, ambulation. 05/26/18: POD#2. Doing well. Will try regular diet. Pt should ambulate but no straining or lifting more than 10 pounds. 05/27/18 POD#3: continued post-operative progress. Ileus resolving. Cont to mobilize OOB and pulm toilet. Cont CLIFF given high output. ADAT slowly. ABD binder if able to find one to fit appropriately. 05/28/18 POD#4: stable progress. Return of normal bowel function. ADAT. Should be able to go home in next 1-2 days with [facility]. 05/29/18: POD#5. Doing well. Will remove CLIFF this morning. I spoke with Hospitalist Service; pt would benefit from stay at [facility] to get stronger and work on transfers. She should avoid any activity that involves straining or lifting more than 10 pounds for 6 weeks after surgery. Overall, patient is doing very good. (2) Small bowel obstruction Status: Resolved (3) Morbid obesity with BMI of 50.0-59.9, adult Status: Chronic Central Venous Access Medical Necessity for Access: IV Access, Medication Administration Condition Stable. Time Spent: < 30 min Exam Sepsis Risk: No Definite Risk ISABELLA DHILLON MD May 29, 2018 08:24
[2018-05-29 09:11] VITALS: BP 145/60
[2018-05-29] MEDS: ENOXAPARIN 30 MG/0.3 ML SYR SC SCH (09:45)
[2018-05-29] MEDS: POLYETHYLENE GLYCOL 17 GM PKT PO SCH (09:45)
[2018-05-29] MEDS: PANTOPRAZOLE SOD 40 MG TABEC PO SCH (09:46)
[2018-05-29] MEDS: amLODIPine BESYL(*) 5 MG TAB PO SCH (09:46)
[2018-05-29] MEDS: DOCUSATE SODIUM 100 MG CAP PO SCH (09:46)
[2018-05-29] MEDS: FUROSEMIDE 20 MG TAB PO SCH (09:46)
[2018-05-29] MEDS: DRONEDARONE HYDROCHLORIDE 400 MG TABLET PO SCH (09:47)
--- NOTE | 2018-05-29 10:06 | Transfer Summary (ECF/SWB) ---
Transfer Summary (ECF/SWB) Problems: (1) Small bowel obstruction Status: Resolved Assessment & Plan: She did present with nausea and vomiting. A CT scan showed a bowel obstruction related to a ventral hernia. She underwent operative repair with Dr. Emanuel on 05/24. (2) Generalized weakness Status: Acute Assessment & Plan: PT/OT to evaluate. She will be transferred to [facility] ECF unit for further rehab. (3) Blue-colored urine Assessment & Plan: Resolved. She reports that her urine turned blue in the days leading up to the admission. She does have a chronic Ramos catheter in place. She is afebrile and has a normal WBC. Her urine had leukocytes and bacteria, but was a contaminated sample. We have changed her catheter. Monitor. (4) Hypothyroid Status: Chronic Assessment & Plan: She is on chronic treatment with Synthroid. (5) Hypertension, benign Status: Chronic Assessment & Plan: She is on chronic treatment with amlodipine and Lasix. (6) Chronic renal insufficiency, stage III (moderate) Status: Acute Assessment & Plan: Her creatinine is stable at her baseline. (7) Atrial fibrillation Status: Acute Assessment & Plan: She is on chronic treatment with Multaq. She has not been on anticoagulation chronically. (8) Morbid obesity with BMI of 50.0-59.9, adult Status: Chronic Latest Vital Signs Vital Signs Date Time Temp Pulse Resp B/P (MAP) Pulse Ox O2 Delivery O2 Flow Rate FiO2 05/29/18 09:11 98.1 70 18 145/60 (88) 88 Nasal Cannula 3.0 05/26/18 20:45 70.0 Result Diagram: 05/28/18 0539 05/28/18 0539 Condition: Improved Disposition: SNF/NH Treatment Goals and Plan The above acute care issues are resolving and/or stable. Patient requires group home and/or skilled rehabilitation and is ready for admission to Extended [facility]. Any change in condition is described below. Copies To 1: FERNIE REID MD ; LUIS YOUNGER LINE SERVICER May 29, 2018 10:06
--- NOTE | 2018-05-29 15:45 | Medical Nutrition Therapy ---
Nutrition Anthropometrics Height (Inches): 63.00 Height (Calculated Centimeters: 160.185074 Weight (Pounds): 305 Weight (Calculated Kilograms): 138.346 BMI: 53.9 Napoleon Nutrition Score: Adequate Napoleon Nutrition Risk Score: 17 Dietary Referral Nutrition Risk Factors: Nutrition Risk Comment: no teeth on admission (dentures at home) Physical Findings Physical Appearance: Morbidly Obese 40+ Skin Appearance Skin Appearance: Edema Edema Location Modifier: Both Edema Location: Lower Extremity Type of Edema: Degree of Edema: 1+ Gastrointestinal Symptoms GI Symtoms: Change in Bowel Pattern Tube Present: Bowel Sounds: Recent Bowel Pattern: Stool Characteristics: Nutritional Diagnosis Nutritional Risk Acuity 2: Chronic Renal Failure Nutritional Risk Acuity 3: Morbid Obesity Past Medical History: T2DM, hypothyroid, Chronic aurora and breast CA, CKD, HTN, Low iron lab 08/13/13 Readmit from d/c 1 day prior to new admit 05/23/18: Hypothyroid, chronic renal failure, HTN, malignant neoplasm of breast. Nutritional Acuity: 2-Moderate Nutrition Diagnosis: Increased Nutrient Needs Nutrition Etiology: Physiological Causes Nutrition Problem/Etiology/Sym: Decreased nutrient needs related to physiological causes as evidenced by BMI of 50 (morbid obesity) and chronic renal failure. Energy Requirement: 2226 (MSJ, 1.1 TEF 1.2 AF) Adjusted Energy Requirement Re: 1726 (-500kcal) Protein Requirement: 89 (0.7g AA/kg of BW) Fluid Requirement: 1781 (08mL/kcal) Diet Type: Diet as Tolerated ETHAN/REG Nutrition Intervention: Cont diet as ordered Drug: Diuretics Nutrition Monitoring & Eval Nutrition Goals: Eat 50-100% Meal Nutrition Follow-Up: Good Intake Nutrition Monitoring: Pt consuming 75-100% ETHAN meals. RD Patient Assessment Time: [address] Assessment Type: RD Re-Assessment Patient Nutrition Acuity: 2-Moderate Follow Up Date: Jun 01, 2018 Nutritional Comment: 05/23: Pt admitted for nausea and vomitting, and blue urine. Pt has a hx of hypothyroidism, chronic renal failure, hyptertension, and malignant neoplasm of breast. Pt has elevated creatinine (2.7) and BUN (52) levels. Pt is currently taking furosemide (diuretic), potassium within normal range. Pt is on a ETHAN diet, with no intake charted. -JJ 05/26: Pt underwent ventral hernia repair. Pt has altered mental confusion. Pt has elevated BUN (50), creatinine (2.7), and AST (38) levels. Pt is currently on a ETHAN diet with no intake recorded at this time. -ROSSANA 05/29: Pt having no n/v. Pt passing flatus and having no pain. Pt is consuming 75-100% of ETHAN meals. -ARMIDA LOWE May 29, 2018 09:24
== END 2018-05-29 10:30 | DRG 354 ==
LOC: ER 16:52 → INTOOBSV 19:51 → MED 19:51 → ICU 05-24 23:56 → OBSVTOIN 05-25 → MED 05-25 09:37
PROVIDERS: ADMIT Family Medicine; ATTEND Family Medicine
PROC: 0WQF0ZZ Repair Abdominal Wall, Open Approach (ICD-10-PCS; principal; 2018-05-24 18:25)
DX: K43.6 Other and unspecified ventral hernia with obstruction, without gangrene (principal); Z68.43 Body mass index [BMI] 50.0-59.9, adult; I12.9 Hypertensive chronic kidney disease with stage 1 through stage 4 chronic kidney disease, or unspecified chronic kidney disease; N18.3 Chronic kidney disease, stage 3 (moderate); E66.01 Morbid (severe) obesity due to excess calories; E11.22 Type 2 diabetes mellitus with diabetic chronic kidney disease; R53.1 Weakness; I48.2 Chronic atrial fibrillation; E03.9 Hypothyroidism, unspecified; R31.9 Hematuria, unspecified; I27.20 Pulmonary hypertension, unspecified; D64.9 Anemia, unspecified; G89.29 Other chronic pain; Z87.440 Personal history of urinary (tract) infections; Z85.3 Personal history of malignant neoplasm of breast; Z95.0 Presence of cardiac pacemaker; Z88.5 Allergy status to narcotic agent; Z88.8 Allergy status to other drugs, medicaments and biological substances; Z87.891 Personal history of nicotine dependence; Z92.21 Personal history of antineoplastic chemotherapy; Z96.653 Presence of artificial knee joint, bilateral
CPT/HCPCS: 36415; 36416; 71045; 74022; 74176; 81001; 82040; 82247; 82310; 82374; 82435; 82565; 82947; 82948; 83690; 84075; 84132; 84155; 84295; 84450; 84460; 84484; 84520; 85025; 87502; 93005; 94660; 96361; 96374; 97161; 97165; 99284; G0378; J0295; J1650; J1940; J2001; J2405; J2550; J2704; J3010; J3490; J7030; J7040; J7050

== ENCOUNTER → 2018-05-22 | Outpatient (CLI) | payer MEDICARE, OTHER ==
[~2018-05-22] MED LIST changes: +HYDR25TA66 PO
[2018-05-23 08:51] VITALS: BMI 49.8
== END ==
LOC: AMB 16:02
PROVIDERS: ATTEND Nurse Practitioner
DX: R11.2 Nausea with vomiting, unspecified (principal); R53.1 Weakness
CPT/HCPCS: A0425; A0427

== ENCOUNTER 2018-05-29 10:30 | Inpatient (IN) | payer MEDICARE, OTHER ==
[2018-05-23 08:51] VITALS: Ht 160 cm; Wt 143.3 kg
[~2018-05-29] VITALS: Ht 160 cm; Wt 143.3 kg
[~2018-05-29 10:30] MED LIST changes: +HYDR25TA66 PO
[2018-05-29 10:53] VITALS: BP 171/59
--- NOTE | 2018-05-29 12:30 | NUR ---
Physical Therapy Impression PT/OT co-eval completed followed by co-treatment for pt safety. Pt desats with exertion and requires increased supplemental O2 to 10L/min in order to maintain sats in mid 90's. Pt tolerated ambulation into hallway with FWW and completed TUG test in 1 minute and 8 seconds, with assistance to manage O2 tubing for safety and CGA with gait belt. Physical Therapy Goals 1. Pt to be Modified indep with bed mobility and supine<>sit trnsfrs 2. Pt to be Modified indep with sit to/from stand transfers 3. Pt to tolerate ambulation x 100' with FWW and O2 in safe range throughout 4. Pt to complete up/down one small platform step to simulate threshold step into home. Patient's Goals
--- NOTE | 2018-05-29 13:26 | NUR ---
Occupational Therapy Impression Pt. requiring increased use of O2 (from 6 L to 10 L) while ambulating 30 feet with use of FWW and assistance for O2 equipment. Pt. required Min A to change gown. Continue with POC. Occupational Therapy Goals 1.Pt. to perform dressing activities with Min A. 2. Pt. to perform toileting activities with Mod I. 3. Pt. to perform showering activities with Min A. 4. Pt. to perform grooming activities with I. 5. Pt. to improve Chasity Index score by 2 points. Patient's Goal
--- NOTE | 2018-05-29 13:38 | OT ECF NOTE ---
Type of Note: Initial Note Primary Medical Diagnosis: Incarcerated ventral hernia Occupational Therapy Evaluation Date: 05-29-18 SUBJECTIVE: Prior Hospitalization: 05-22-18 to 05-29-18 [facility] medical floor , Dr. Ballard completed sx for SBO on 05/24/18. Prior Level of Function: Assistance from HH care Prior Living Status: Single level house Living with family Community Services: Home health care- [facility] has been assisting with showering activities and catheter skilled nursing Accessibility: Ramp All needs on one level Equipment Owned: Front wheeled walker Medical Complications/Past Medical History: please refer to chart for details Psychosocial Support: supportive daughter Pain Scale (0-10): None stated during initial evaluation. OBJECTIVE: Strength: MMT: Right Left Shoulder Flexion [*] [*] Elbow Flexion [*] [*] Wrist Extension [*] [*] Command And Control [*] [*] (5= normal, 4= good, 3= fair, 2= poor, 1= trace) Functional Transfer: Assistive Device: Front wheeled walker Transfer Ability: CGA on 10 L of O2. ADL: Upper body dressing: Assistive device: Upper body dressing ability: Minimum assistance Lower body dressing:N/T Assistive device: Lower body dressing ability: Toileting: N/T Assistive device: Toileting ability: Grooming/hygiene: N/T Assistive device: Grooming ability: Bathing: N/T Assistive device: Bathing ability: Standardized Assessment: Chasity Index of Activities of Daily Living- Pt. scored a 10/20 on this Index upon initial evaluation. ASSESSMENT: Pt. is a 88 year old female who was admitted to [facility] medical [facility] on 05/22/18 with nausea, vomitting and weakness. Pt. underwent surgery on 05/24/18 (Dr. Ballard) to repair a incarcerated ventral hernia. Pt. resides in [place] with her son. Pt. has a ramp with threshold to enter home and then all her needs are on one level (son resides in the basement of home). Pt. admitted to [facility] for continued rehab to address pt. low activity tolerance with all activities and high oxygen demand with activity. Pt. has received HH care in the past, however, is not safe to return home until she is more independent with all ADL activities. Problem List/Current Limitations: Pain Decreased activity bc Generalized weakness Shortness of breath Short Term Goals: 1.Pt. to perform dressing activities with Min A. 2. Pt. to perform toileting activities with Mod I. 3. Pt. to perform showering activities with Min A. 4. Pt. to perform grooming activities with I. 5. Pt. to improve Chasity Index score by 2 points. Reel Film Inspector Goals: Return with HH Patient Goals: Return home with Rehabilitation Prognosis: Fair Barriers to Discharge: advanced age PLAN: The patient will benefit from skilled occupational therapy services 5 times per week for 2 weeks including: Ther ex ADL training Safety training Ther act IADL training Transfer training Bed mobility Energy conservation Thank you for this referral. If you have any questions, concerns, or comments about this report or plan, please contact me at . Rasheeda Beltran OTR/L Occupational Therapist FERMÍN
[2018-05-29] MEDS: hydrALAZINE HCL 25 MG TAB PO SCH ×2 (13:53→20:33)
[2018-05-29 13:54] VITALS: BP 159/61
--- NOTE | 2018-05-29 14:30 | Consultant Pharmacy Review ---
Production Truck Driver Review Medication Review Do All Mecications have a Diag: Yes Beers Criteria Medication 2014 Proton Pump Inhibitors: Pantoprazole (Patient on Protonix 40 mg Qday. monitor for signs and symptoms of fall) Other General Cautions Simvastatin and Dronedarone: - Dronedarone may increase the serum concentration of Simvastatin. Recommend limiting Simvastatin to a maximum of 10 mg/day. - Patient taking these at home. Monitor for signs and symptoms of myositis (including muscle pain, joint inflammation) and rhabdomyolysis. Pneumococcal Vaccine HX Pneumo Vac ([id number]): Yes (02/02) HX Pneumo Vac (Pneumovax): Yes (02/26) IDRIS BRAR V May 29, 2018 14:30
--- NOTE | 2018-05-29 16:17 | Medical Nutrition Therapy ---
Nutrition Anthropometrics Height (Inches): 63.00 Height (Calculated Centimeters: [phone] Weight (Pounds): 299 Weight (Calculated Kilograms): 135.624 BMI: 53 Napoleon Nutrition Score: Adequate Napoleon Nutrition Risk Score: 19 Dietary Referral Nutrition Risk Factors: Nutrition Risk Comment: no teeth on admission (dentures at home) Physical Findings Physical Appearance: Morbidly Obese 40+ Skin Appearance Skin Appearance: Edema Edema Location Modifier: Both Edema Location: Lower Extremity Type of Edema: Degree of Edema: Gastrointestinal Symptoms GI Symtoms: Tube Present: Bowel Sounds: Recent Bowel Pattern: Stool Characteristics: Nutritional Diagnosis Nutritional Risk Acuity 2: Chronic Renal Failure Nutritional Risk Acuity 3: Morbid Obesity Past Medical History: T2DM, hypothyroid, Chronic aurora and breast CA, CKD, HTN, Low iron lab 08/13/13 Readmit from d/c 1 day prior to new admit 05/23/18: Hypothyroid, chronic renal failure, HTN, malignant neoplasm of breast. Nutritional Acuity: 2-Moderate Nutrition Diagnosis: Decreased Nutrient Needs Nutrition Etiology: Physiological Causes Nutrition Problem/Etiology/Sym: Decreased protein needs r/t dx CKD-3 AEB BUN 49, creatinine 26. GFR 17.5. Energy Requirement: 2226 (MStJ) Adjusted Energy Requirement Re: 1726 (-500 kcal for obesity) Protein Requirement: 89 (.7gm/kg) Fluid Requirement: 2226 (1ml/kcal) Diet Type: Diet as Tolerated ETHAN/REG Nutrition Intervention: Cont diet as ordered, Encourage intake, Between meal supplement Nutrition Monitoring & Eval Nutrition Goals: Eat 75-100% Meal RD Patient Assessment Time: 30 minutes Patient Nutrition Acuity: 2-Moderate Follow Up Date: Jun 06, 2018 Nutritional Comment: 05/29 Pt admitted s/p SBO. Pt on regular diet and eating 100% of meals. Wt is up 6% from wt on med unit 05/22/18. Pt has BLE and is recieving K+ depeting duiretic. Anticipate wt loss when edema resolved. K+ is WNR. Other nutritionally significant labs: BUN 49, creainine 2.6, GFR 17.5 alb 3.2, A1C 5.8. Goal is to provide adequate but not excessive protein r/t dx CKD and elevated BUN/creatinine. NATY SCHERER May 29, 2018 16:16
[2018-05-29 20:30] VITALS: BP 155/79
[2018-05-29] MEDS: DOCUSATE SODIUM 100 MG CAP PO SCH (20:33)
[2018-05-29] MEDS: EXEMESTANE 25 MG TAB PO SCH (20:33)
[2018-05-29] MEDS: SIMVASTATIN 20 MG TAB PO SCH (20:33)
[2018-05-30] MEDS: ACETAMINOPHEN 500 MG TAB PO PRN (03:25)
[2018-05-30] MEDS: LEVOTHYROXINE SOD 0.05 MG TAB PO SCH (05:55)
[2018-05-30 08:00] VITALS: BP 154/51
--- NOTE | 2018-05-30 08:37 | General Surgery Progress Note ---
Subjective Progress Notes Subjective No complaints today. Not much pain. she is eating without any problems, no nausea or vomiting, she is passing flatus and bowel movements without issues. Physical Exam Vital Signs Date Time Temp Pulse Resp B/P (MAP) Pulse Ox O2 Delivery O2 Flow Rate FiO2 05/29/18 20:30 97.1 60 155/79 (104) 94 Oxy Mask 3.0 Intake and Output 05/30/18 07:00 Intake Total 1090 ml Output Total 950 ml Balance 140 ml Intake Oral 1090 ml Output Urine Total 950 ml # Bowel Movements 2 General Appearance: Alert, Awake, No Acute Distress, Afebrile GI: Soft and Non-Tender (midline incision is healing well without erythema or drainage. The drain site looks good as well. Drain removed yesterday.) Assessment and Plan Problems: (1) Ventral hernia with bowel obstruction Status: Resolved Assessment & Plan: 05/30/18: Patient is healing well from surgery. No issues currently. She is advised to refrain from performing any activities that involve straining or lifting more than 10 pounds until she is 6 weeks out from surgery. Central Venous Access Medical Necessity for Access: IV Access, Medication Administration Condition Stable Time Spent: < 30 min ISABELLA DHILLON MD May 30, 2018 08:36
[2018-05-30] MEDS: CHOLECALCIFEROL 1000 UNIT TAB PO SCH (09:20)
[2018-05-30] MEDS: DRONEDARONE HYDROCHLORIDE 400 MG TABLET PO SCH (09:20)
[2018-05-30] MEDS: ENOXAPARIN 30 MG/0.3 ML SYR SC SCH (09:20)
[2018-05-30] MEDS: POLYETHYLENE GLYCOL 17 GM PKT PO SCH (09:21)
[2018-05-30] MEDS: FUROSEMIDE 20 MG TAB PO SCH (09:21)
[2018-05-30] MEDS: PANTOPRAZOLE SOD 40 MG TABEC PO SCH (09:21)
[2018-05-30] MEDS: amLODIPine BESYL(*) 5 MG TAB PO SCH (09:21)
[2018-05-30] MEDS: hydrALAZINE HCL 25 MG TAB PO SCH ×3 (09:21→20:22)
[2018-05-30] MEDS: DOCUSATE SODIUM 100 MG CAP PO SCH ×2 (09:21→20:23)
--- NOTE | 2018-05-30 11:43 | NUR ---
Occupational Therapy Impression CGA ambulation x60ft with RW prior to fatigue. SpO2 >90% on 6L with functional mobility. Min A toileting. Max Ax1 sit to supine. Introduced varied methods for lifting legs into bed. Pt will benefit from continued intervention to increase independence with bed mobility. Total A LB dressing. Continue POC. Occupational Therapy Goals 1.Pt. to perform dressing activities with Min A. 2. Pt. to perform toileting activities with Mod I. 3. Pt. to perform showering activities with Min A. 4. Pt. to perform grooming activities with I. 5. Pt. to improve Chasity Index score by 2 points. Patient's Goal
[2018-05-30 14:33] VITALS: BP 122/39
[2018-05-30 17:00] VITALS: BP 154/73
[2018-05-30] MEDS: SIMVASTATIN 20 MG TAB PO SCH (20:22)
[2018-05-30] MEDS: EXEMESTANE 25 MG TAB PO SCH (20:23)
[2018-05-31] MEDS: LEVOTHYROXINE SOD 0.05 MG TAB PO SCH (05:59)
[2018-05-31 08:00] VITALS: BP 156/55
[2018-05-31] MEDS: DRONEDARONE HYDROCHLORIDE 400 MG TABLET PO SCH (09:56)
[2018-05-31] MEDS: amLODIPine BESYL(*) 5 MG TAB PO SCH (09:56)
[2018-05-31] MEDS: hydrALAZINE HCL 25 MG TAB PO SCH ×3 (09:56→20:25)
[2018-05-31] MEDS: POLYETHYLENE GLYCOL 17 GM PKT PO SCH (09:57)
[2018-05-31] MEDS: CHOLECALCIFEROL 1000 UNIT TAB PO SCH (09:57)
[2018-05-31] MEDS: PANTOPRAZOLE SOD 40 MG TABEC PO SCH (09:57)
[2018-05-31] MEDS: FUROSEMIDE 20 MG TAB PO SCH (09:58)
[2018-05-31] MEDS: ENOXAPARIN 30 MG/0.3 ML SYR SC SCH (09:58)
[2018-05-31] MEDS: DOCUSATE SODIUM 100 MG CAP PO SCH ×2 (09:58→20:26)
--- NOTE | 2018-05-31 10:47 | ECF History & Physical ---
Transfer Summary (ECF/SWB) Problems: (1) Small bowel obstruction Status: Resolved Assessment & Plan: She did present with nausea and vomiting. A CT scan showed a bowel obstruction related to a ventral hernia. She underwent operative repair with Dr. Emanuel on 05/24. (2) Generalized weakness Status: Acute Assessment & Plan: PT/OT to evaluate. She will be transferred to [facility] ECF unit for further rehab. (3) Blue-colored urine Assessment & Plan: Resolved. She reports that her urine turned blue in the days leading up to the admission. She does have a chronic Ramos catheter in place. She is afebrile and has a normal WBC. Her urine had leukocytes and bacteria, but was a contaminated sample. We have changed her catheter. Monitor. (4) Hypothyroid Status: Chronic Assessment & Plan: She is on chronic treatment with Synthroid. (5) Hypertension, benign Status: Chronic Assessment & Plan: She is on chronic treatment with amlodipine and Lasix. (6) Chronic renal insufficiency, stage III (moderate) Status: Acute Assessment & Plan: Her creatinine is stable at her baseline. (7) Atrial fibrillation Status: Acute Assessment & Plan: She is on chronic treatment with Multaq. She has not been on anticoagulation chronically. (8) Morbid obesity with BMI of 50.0-59.9, adult Status: Chronic Latest Vital Signs Vital Signs Date Time Temp Pulse Resp B/P (MAP) Pulse Ox O2 Delivery O2 Flow Rate FiO2 05/29/18 09:11 98.1 70 18 145/60 (88) 88 Nasal Cannula 3.0 05/26/18 20:45 70.0 Result Diagram: 05/28/18 0539 05/28/1839 Condition: Improved Disposition: SNF/NH Treatment Goals and Plan The above acute care issues are resolving and/or stable. Patient requires nursing home and/or skilled rehabilitation and is ready for admission to Extended Care. Any change in condition is described below. Copies To 1: FERNIE REID MD ; LUIS YOUNGER May 29, 2018 10:06 <Electronically signed by SHERRON ANN> D/ 100 05 VELASQUEZ/MOUSTAPHA CC: FERNIE REID MD [facility]
--- NOTE | 2018-05-31 12:38 | NUR ---
Occupational Therapy Impression Pt requesting to urgently use restroom upon OT arrival. Incontinent of bowel requiring increased assist from OT for thoroughness. Max A toileting. CGA ambulation x60ft with RW prior to fatigue. Pt reports the furthest distance she ambulates at home is 12ft. Pt with decreased initiation for ADLs. Continue POC. Occupational Therapy Goals 1.Pt. to perform dressing activities with Min A. 2. Pt. to perform toileting activities with Mod I. 3. Pt. to perform showering activities with Min A. 4. Pt. to perform grooming activities with I. 5. Pt. to improve Chasity Index score by 2 points. Patient's Goal
[2018-05-31 13:56] VITALS: BP 145/72
[2018-05-31 16:50] VITALS: BP 148/55
--- NOTE | 2018-05-31 17:17 | NUR ---
Physical Therapy Impression Pt requires use of hospital bed to perform supine>sit with Min A, Mod A to stand from the wheelchair, and CGA to ambulate 60'x2 with RW and 3L O2. Pt dependent for LB dressing and hygiene after bowel incontinence. Physical Therapy Goals 1. Pt to be Modified indep with bed mobility and supine<>sit trnsfrs 2. Pt to be Modified indep with sit to/from stand transfers 3. Pt to tolerate ambulation x 100' with FWW and O2 in safe range throughout 4. Pt to complete up/down one small platform step to simulate threshold step into home. Patient's Goals
[2018-05-31] MEDS: SIMVASTATIN 20 MG TAB PO SCH (20:25)
[2018-05-31] MEDS: EXEMESTANE 25 MG TAB PO SCH (20:25)
[2018-05-31] MEDS: ACETAMINOPHEN 500 MG TAB PO PRN (23:10)
[2018-06-01] MEDS: LEVOTHYROXINE SOD 0.05 MG TAB PO SCH (05:33)
[2018-06-01 07:35] VITALS: BP 146/56
[2018-06-01] MEDS: ACETAMINOPHEN 500 MG TAB PO PRN ×2 (07:53→22:49)
[2018-06-01] MEDS: DRONEDARONE HYDROCHLORIDE 400 MG TABLET PO SCH (08:50)
[2018-06-01] MEDS: CHOLECALCIFEROL 1000 UNIT TAB PO SCH (08:51)
[2018-06-01] MEDS: PANTOPRAZOLE SOD 40 MG TABEC PO SCH (08:51)
[2018-06-01] MEDS: ENOXAPARIN 30 MG/0.3 ML SYR SC SCH (08:51)
[2018-06-01] MEDS: FUROSEMIDE 20 MG TAB PO SCH (08:51)
[2018-06-01] MEDS: amLODIPine BESYL(*) 5 MG TAB PO SCH (08:51)
[2018-06-01] MEDS: hydrALAZINE HCL 25 MG TAB PO SCH ×3 (08:51→20:20)
[2018-06-01] MEDS: DOCUSATE SODIUM 100 MG CAP PO SCH ×2 (08:52→20:16)
[2018-06-01] MEDS: POLYETHYLENE GLYCOL 17 GM PKT PO SCH (08:52)
--- NOTE | 2018-06-01 08:59 | NUR ---
Occupational Therapy Impression Pt. ambulated from room to ECF DR with use of FWW with SBA on 3 L of O2. Pt. performed UB dressing with SAN and LB shoe donning with Min A. Continue with POC. Occupational Therapy Goals 1.Pt. to perform dressing activities with Min A. 2. Pt. to perform toileting activities with Mod I. 3. Pt. to perform showering activities with Min A. 4. Pt. to perform grooming activities with I. 5. Pt. to improve Chasity Index score by 2 points. Patient's Goal
[2018-06-01 13:32] VITALS: BP 131/55
[2018-06-01 16:00] VITALS: BP 133/64
[2018-06-01] MEDS: SIMVASTATIN 20 MG TAB PO SCH (20:20)
[2018-06-01] MEDS: EXEMESTANE 25 MG TAB PO SCH (20:20)
--- NOTE | 2018-06-02 01:15 | NUR ---
Re-inserted Ramos catheter with ease after previous catheter was DC'd during transfer from chair to bed. Deepa-care performed. Resident has had chronic Ramos catheter "for the last two to three years" per care of Dr. Kramer. Urine is yellow, clear to cloudy in color. Encouraged increased intake of fluids, provided fresh ice water at bedside.
[2018-06-02] MEDS: LEVOTHYROXINE SOD 0.05 MG TAB PO SCH (06:00)
[2018-06-02 07:30] VITALS: BP 160/60
[2018-06-02] MEDS: POLYETHYLENE GLYCOL 17 GM PKT PO SCH (08:47)
[2018-06-02] MEDS: DOCUSATE SODIUM 100 MG CAP PO SCH ×2 (08:47→20:53)
[2018-06-02] MEDS: PANTOPRAZOLE SOD 40 MG TABEC PO SCH (08:50)
[2018-06-02] MEDS: CHOLECALCIFEROL 1000 UNIT TAB PO SCH (08:50)
[2018-06-02] MEDS: FUROSEMIDE 20 MG TAB PO SCH (08:51)
[2018-06-02] MEDS: amLODIPine BESYL(*) 5 MG TAB PO SCH (08:51)
[2018-06-02] MEDS: DRONEDARONE HYDROCHLORIDE 400 MG TABLET PO SCH (08:51)
--- NOTE | 2018-06-02 08:51 | General Surgery Progress Note ---
Subjective Progress Notes Subjective No complaints this morning. No pain. Physical Exam Vital Signs Date Time Temp Pulse Resp B/P (MAP) Pulse Ox O2 Delivery O2 Flow Rate FiO2 06/02/18 00:30 92 Nasal Cannula 3.0 06/01/18 16:00 97.1 60 20 133/64 (87) Intake and Output 06/02/18 06:59 Intake Total 960 ml Output Total 1150 ml Balance -190 ml Intake Oral 960 ml Output Urine Total 1150 ml # Bowel Movements 2 General Appearance: Alert, Awake, No Acute Distress, Afebrile GI: Soft and Non-Tender (midline incision is well healed without erythema or drainage. CLIFF drain site is also scabbed over and well-healed without erythema or drainage. There is a palpable healing ridge consistent with the suture closure of her abdominal wall.) Extremities: Warm, Perfused Assessment and Plan Problems: (1) Ventral hernia with bowel obstruction Status: Resolved Assessment & Plan: 05/30/18: Patient is healing well from surgery. No issues currently. She is advised to refrain from performing any activities that involve straining or lifting more than 10 pounds until she is 6 weeks out from surgery. 06/02/18: Patient is doing well. No issues currently. She should continue refraining from lifting anything more than 10 pounds or straining for 6 weeks. Central Venous Access Medical Necessity for Access: IV Access, Medication Administration Condition Stable Time Spent: < 30 min ISABELLA DHILLON MD Jun 02, 2018 08:51
[2018-06-02] MEDS: hydrALAZINE HCL 25 MG TAB PO SCH ×3 (08:52→20:52)
[2018-06-02] MEDS: ENOXAPARIN 30 MG/0.3 ML SYR SC SCH (08:52)
--- NOTE | 2018-06-02 13:14 | NUR ---
Occupational Therapy Impression SBA ambulation x50ft with RW. SpO2 WNL on 4L. Independent donning/doffing slip on slippers. Pt does not wear socks at baseline. Declined need to address donning/doffing underwear. SBA light meal prep in kitchen. Good dynamic standing balance. Pt progressing well toward goals. Continue POC. Occupational Therapy Goals 1.Pt. to perform dressing activities with Min A. 2. Pt. to perform toileting activities with Mod I. 3. Pt. to perform showering activities with Min A. 4. Pt. to perform grooming activities with I. 5. Pt. to improve Chasity Index score by 2 points. Patient's Goal
[2018-06-02 14:02] VITALS: BP 140/58
--- NOTE | 2018-06-02 15:40 | NUR ---
Physical Therapy Impression Pt progressing with improved tolerance to activity on 3 L O2. Physical Therapy Goals 1. Pt to be Modified indep with bed mobility and supine<>sit trnsfrs 2. Pt to be Modified indep with sit to/from stand transfers 3. Pt to tolerate ambulation x 100' with FWW and O2 in safe range throughout 4. Pt to complete up/down one small platform step to simulate threshold step into home. Patient's Goals
[2018-06-02 17:10] VITALS: BP 155/70
[2018-06-02] MEDS: EXEMESTANE 25 MG TAB PO SCH (20:52)
[2018-06-02] MEDS: SIMVASTATIN 20 MG TAB PO SCH (20:52)
[2018-06-03] MEDS: ACETAMINOPHEN 500 MG TAB PO PRN
[2018-06-03] MEDS: LEVOTHYROXINE SOD 0.05 MG TAB PO SCH (06:31)
[2018-06-03 08:40] VITALS: BP 150/64
[2018-06-03] MEDS: POLYETHYLENE GLYCOL 17 GM PKT PO SCH (09:00)
[2018-06-03] MEDS: DOCUSATE SODIUM 100 MG CAP PO SCH ×2 (09:00→21:00)
[2018-06-03] MEDS: amLODIPine BESYL(*) 5 MG TAB PO SCH (09:27)
[2018-06-03] MEDS: PANTOPRAZOLE SOD 40 MG TABEC PO SCH (09:27)
[2018-06-03] MEDS: hydrALAZINE HCL 25 MG TAB PO SCH ×3 (09:27→20:53)
[2018-06-03] MEDS: DRONEDARONE HYDROCHLORIDE 400 MG TABLET PO SCH (09:27)
[2018-06-03] MEDS: CHOLECALCIFEROL 1000 UNIT TAB PO SCH (09:27)
[2018-06-03] MEDS: FUROSEMIDE 20 MG TAB PO SCH (09:27)
[2018-06-03] MEDS: ENOXAPARIN 30 MG/0.3 ML SYR SC SCH (09:28)
[2018-06-03 14:09] VITALS: BP 118/56
[2018-06-03 20:39] VITALS: BP 127/47
[2018-06-03] MEDS: SIMVASTATIN 20 MG TAB PO SCH (21:32)
[2018-06-03] MEDS: EXEMESTANE 25 MG TAB PO SCH (21:32)
[2018-06-04] MEDS: LEVOTHYROXINE SOD 0.05 MG TAB PO SCH (05:57)
[2018-06-04 07:30] VITALS: BP 132/53
[2018-06-04] MEDS: POLYETHYLENE GLYCOL 17 GM PKT PO SCH (09:00)
[2018-06-04] MEDS: hydrALAZINE HCL 25 MG TAB PO SCH ×3 (09:00→20:43)
[2018-06-04] MEDS: DOCUSATE SODIUM 100 MG CAP PO SCH ×2 (09:00→20:30)
[2018-06-04] MEDS: ENOXAPARIN 30 MG/0.3 ML SYR SC SCH (09:21)
[2018-06-04] MEDS: amLODIPine BESYL(*) 5 MG TAB PO SCH (09:21)
[2018-06-04] MEDS: PANTOPRAZOLE SOD 40 MG TABEC PO SCH (09:21)
[2018-06-04] MEDS: FUROSEMIDE 20 MG TAB PO SCH (09:21)
[2018-06-04] MEDS: DRONEDARONE HYDROCHLORIDE 400 MG TABLET PO SCH (09:21)
[2018-06-04] MEDS: CHOLECALCIFEROL 1000 UNIT TAB PO SCH (09:21)
[2018-06-04 13:31] VITALS: BP 148/50
[2018-06-04 19:08] VITALS: BP 144/70
[2018-06-04] MEDS: SIMVASTATIN 20 MG TAB PO SCH (20:42)
[2018-06-04] MEDS: ACETAMINOPHEN 500 MG TAB PO PRN (20:43)
[2018-06-04] MEDS: EXEMESTANE 25 MG TAB PO SCH (20:43)
[2018-06-05] MEDS: LEVOTHYROXINE SOD 0.05 MG TAB PO SCH (06:36)
[2018-06-05 08:00] VITALS: BP 151/65
--- NOTE | 2018-06-05 08:41 | Medical Nutrition Therapy ---
Nutrition Anthropometrics Height (Inches): 63.00 Height (Calculated Centimeters: 160.327160 Weight (Pounds): 299 Weight (Calculated Kilograms): 135.624 BMI: 53 Napoleon Nutrition Score: Probably Inadequate Napoleon Nutrition Risk Score: 16 Dietary Referral Nutrition Risk Factors: Nutrition Risk Comment: no teeth on admission (dentures at home) Physical Findings Physical Appearance: Morbidly Obese 40+ Skin Appearance Skin Appearance: Edema Edema Location Modifier: Both Edema Location: Foot Type of Edema: Degree of Edema: 1+ Gastrointestinal Symptoms GI Symtoms: Tube Present: Bowel Sounds: Recent Bowel Pattern: Stool Characteristics: Nutritional Diagnosis Nutritional Risk Acuity 2: Chronic Renal Failure Nutritional Risk Acuity 3: Morbid Obesity Past Medical History: T2DM, hypothyroid, Chronic aurora and breast CA, CKD, HTN, Low iron lab 08/13/13 Readmit from d/c 1 day prior to new admit 05/23/18: Hypothyroid, chronic renal failure, HTN, malignant neoplasm of breast. Nutritional Acuity: 2-Moderate Nutrition Diagnosis: Decreased Nutrient Needs Nutrition Etiology: Physiological Causes Nutrition Problem/Etiology/Sym: Decreased protein needs r/t dx CKD-3 AEB BUN 49, creatinine 26. GFR 17.5. Energy Requirement: 2226 (MStJ) Adjusted Energy Requirement Re: 1726 (-500 kcal for obesity) Protein Requirement: 89 (.7gm/kg) Fluid Requirement: 2226 (1ml/kcal) Diet Type: Diet as Tolerated ETHAN/REG Nutrition Intervention: Cont diet as ordered, Encourage intake, Between meal supplement Drug: Diuretics Drug/Nutrition Recommendations: Check Serum K+ Nutrition Monitoring & Eval Nutrition Goals: Eat 75-100% Meal Nutrition Follow-Up: Good Intake RD Patient Assessment Time: [address] Assessment Type: RD Assessment Patient Nutrition Acuity: 2-Moderate Follow Up Date: Jun 13, 2018 Nutritional Comment: 05/29 Pt admitted s/p SBO. Pt on regular diet and eating 100% of meals. Wt is up 6% from wt on med unit 05/22/18. Pt has BLE and is recieving K+ depeting duiretic. Anticipate wt loss when edema resolved. K+ is WNR. Other nutritionally significant labs: BUN 49, creainine 2.6, GFR 17.5 alb 3.2, A1C 5.8. Goal is to provide adequate but not excessive protein r/t dx CKD and elevated BUN/creatinine. BK 06/05 No new wt. Pt cont 1+ edema BLE. Pt on lasix, a K+ depeting duiretic. Recommend check serum K+. Pt on ETHAN and eating 75- 100% of meals. Pt has dx T2DM and may benefit from DAD diet however BG are only mildly elevated ranging 99-174. Will cont to monitor and enourage healthy intake. NATY SCHERER Jun 05, 2018 08:41
[2018-06-05] MEDS: PANTOPRAZOLE SOD 40 MG TABEC PO SCH (08:45)
[2018-06-05] MEDS: FUROSEMIDE 20 MG TAB PO SCH (08:45)
[2018-06-05] MEDS: amLODIPine BESYL(*) 5 MG TAB PO SCH (08:46)
[2018-06-05] MEDS: POLYETHYLENE GLYCOL 17 GM PKT PO SCH (08:46)
[2018-06-05] MEDS: CHOLECALCIFEROL 1000 UNIT TAB PO SCH (08:46)
[2018-06-05] MEDS: ENOXAPARIN 30 MG/0.3 ML SYR SC SCH (08:46)
[2018-06-05] MEDS: DRONEDARONE HYDROCHLORIDE 400 MG TABLET PO SCH (08:46)
[2018-06-05] MEDS: hydrALAZINE HCL 25 MG TAB PO SCH ×3 (08:46→20:20)
[2018-06-05] MEDS: DOCUSATE SODIUM 100 MG CAP PO SCH ×2 (08:47→20:53)
--- NOTE | 2018-06-05 11:53 | NUR ---
Physical Therapy Impression Pt reporting at beginning of session she was not feeling well, notable fatigue and SOB with activity. Continual VC's for pursed lip breathing to improve SpO2. Ambulation x 60' with FWW and CGA. Pt on 3.0 L O2 with activity, 76% saturation at end of bout. Pt required extra time at 5.0 L O2 to recover to >90% saturation. Notified nursing of this. Cont. with POC. Physical Therapy Goals 1. Pt to be Modified indep with bed mobility and supine<>sit trnsfrs 2. Pt to be Modified indep with sit to/from stand transfers 3. Pt to tolerate ambulation x 100' with FWW and O2 in safe range throughout 4. Pt to complete up/down one small platform step to simulate threshold step into home. Patient's Goals
--- NOTE | 2018-06-05 12:46 | NUR ---
5-day MDS completed with pt. C: 12, D: 03, E: no cocnerns, Q: pt plans to DC to community, referral already made for HHS at [place]. Will continue to follow for DC needs.
[2018-06-05 14:17] VITALS: BP 132/63
--- NOTE | 2018-06-05 15:34 | NUR ---
Occupational Therapy Impression Requesting to engage in functional mobility, declined ADLs/IADLs.Mod (I) ambulation x75ft with RW. Mod A sit<>supine. Pt reports bed at home is a lower height increasing (I). SpO2 WNL on 6L. Pt more dyspneic with activity this date. Pt nearing baseline for ADLs/IADLs. Declines further needs to address with OT prior to discharge home. Occupational Therapy Goals 1.Pt. to perform dressing activities with Min A. 2. Pt. to perform toileting activities with Mod I. 3. Pt. to perform showering activities with Min A. 4. Pt. to perform grooming activities with I. 5. Pt. to improve Chasity Index score by 2 points. Patient's Goal
[2018-06-05 17:30] VITALS: BP 159/68
[2018-06-05 20:00] VITALS: BP 139/54
[2018-06-05] MEDS: EXEMESTANE 25 MG TAB PO SCH (21:26)
[2018-06-05] MEDS: SIMVASTATIN 20 MG TAB PO SCH (21:27)
[2018-06-05] MEDS: ACETAMINOPHEN 500 MG TAB PO PRN (21:27)
[2018-06-06] MEDS: LEVOTHYROXINE SOD 0.05 MG TAB PO SCH (06:12)
[2018-06-06 08:10] VITALS: BP 140/70
[2018-06-06] MEDS: DOCUSATE SODIUM 100 MG CAP PO SCH ×2 (09:00→20:39)
[2018-06-06] MEDS: POLYETHYLENE GLYCOL 17 GM PKT PO SCH (09:00)
[2018-06-06] MEDS: hydrALAZINE HCL 25 MG TAB PO SCH ×3 (09:11→20:39)
[2018-06-06] MEDS: FUROSEMIDE 20 MG TAB PO SCH (09:11)
[2018-06-06] MEDS: CHOLECALCIFEROL 1000 UNIT TAB PO SCH (09:11)
[2018-06-06] MEDS: ENOXAPARIN 30 MG/0.3 ML SYR SC SCH (09:11)
[2018-06-06] MEDS: DRONEDARONE HYDROCHLORIDE 400 MG TABLET PO SCH (09:11)
[2018-06-06] MEDS: amLODIPine BESYL(*) 5 MG TAB PO SCH (09:11)
[2018-06-06] MEDS: PANTOPRAZOLE SOD 40 MG TABEC PO SCH (09:11)
--- NOTE | 2018-06-06 11:49 | NUR ---
Physical Therapy Impression Pt tolerated an increase in ambulation distance this date with mod encouragement. VC's required for pursed lip breathing during activity. Pt on 8.0 L O2 with gait, SpO2 at 90%. Pt with mild SOB noted at end of bout, but recovered quickly upon seated back in room. Pt has poor O2 tubing mgmt techniques and is minimally responsive to cues to improve safety with O2 lines. Cont. with POC Physical Therapy Goals 1. Pt to be Modified indep with bed mobility and supine<>sit trnsfrs 2. Pt to be Modified indep with sit to/from stand transfers 3. Pt to tolerate ambulation x 100' with FWW and O2 in safe range throughout 4. Pt to complete up/down one small platform step to simulate threshold step into home. Patient's Goals
--- NOTE | 2018-06-06 12:42 | NUR ---
Occupational Therapy Impression Pt alert, agreeable to OT tx. Refusing ADLs (including hower/toileting/dressing). Reports only need to address prior to discharge home is functional mobility. Mod (I) ambulation x60ft with RW. SpO2 80% on 6L. Recovered to >88% on 6L with rest. On 4L at end of tx. with SpO2 >90%. Independent grooming standing sinkfront. Pt has met skilled OT goals that she is agreeable to address. Recommend discharge home with continued HH services. Occupational Therapy Goals 1.Pt. to perform dressing activities with Min A. 2. Pt. to perform toileting activities with Mod I. 3. Pt. to perform showering activities with Min A. 4. Pt. to perform grooming activities with I. 5. Pt. to improve Chasity Index score by 2 points. Patient's Goal
[2018-06-06 13:22] VITALS: BP 134/53
[2018-06-06] MEDS: ACETAMINOPHEN 500 MG TAB PO PRN (15:31)
[2018-06-06 15:45] VITALS: BP 159/64
[2018-06-06] MEDS: SIMVASTATIN 20 MG TAB PO SCH (20:39)
[2018-06-06] MEDS: EXEMESTANE 25 MG TAB PO SCH (20:39)
[2018-06-07] MEDS: ACETAMINOPHEN 500 MG TAB PO PRN (00:39)
[2018-06-07] MEDS: LEVOTHYROXINE SOD 0.05 MG TAB PO SCH (06:08)
[2018-06-07 07:29] LABS: PLATELET COUNT, AUTOMATED 201 K/uL (150-450)
[2018-06-07 07:45] VITALS: BP 138/53
[2018-06-07] MEDS: POLYETHYLENE GLYCOL 17 GM PKT PO SCH (09:00)
[2018-06-07] MEDS: DOCUSATE SODIUM 100 MG CAP PO SCH ×2 (09:00→20:33)
[2018-06-07] MEDS: hydrALAZINE HCL 25 MG TAB PO SCH ×3 (09:00→20:33)
[2018-06-07] MEDS: amLODIPine BESYL(*) 5 MG TAB PO SCH (09:25)
[2018-06-07] MEDS: FUROSEMIDE 20 MG TAB PO SCH (09:25)
[2018-06-07] MEDS: DRONEDARONE HYDROCHLORIDE 400 MG TABLET PO SCH (09:25)
[2018-06-07] MEDS: PANTOPRAZOLE SOD 40 MG TABEC PO SCH (09:25)
[2018-06-07] MEDS: CHOLECALCIFEROL 1000 UNIT TAB PO SCH (09:25)
[2018-06-07] MEDS: ENOXAPARIN 30 MG/0.3 ML SYR SC SCH (09:26)
--- NOTE | 2018-06-07 11:18 | NUR ---
Physical Therapy Impression Pt declined mobility. Discussed getting a life line for home for times when her son is not home. Also problem solved bedroom set up. Pt declines bed mobility as she reports her bed at home is much easier to get in/out of than the one here. Educated pt on having her son present for first trial of bed mobility to ensure no issues. Pt verbalized understanding. Pt has a ramp to enter her home. May benefit from trial of a platform step to ensure no difficulty with community mobility in the future. Cont. with POC. Physical Therapy Goals 1. Pt to be Modified indep with bed mobility and supine<>sit trnsfrs 2. Pt to be Modified indep with sit to/from stand transfers 3. Pt to tolerate ambulation x 100' with FWW and O2 in safe range throughout 4. Pt to complete up/down one small platform step to simulate threshold step into home. Patient's Goals
--- NOTE | 2018-06-07 12:52 | NUR ---
Occupational Therapy Impression Pt alert, agreeable to OT tx. Declines intervention towards ADL goals. Reports main concern for discharge home is functional mobility. Mod (I) ambulation x25ft, x40ft, x25ft with RW. SpO2 84% on 6L via nasal cannula. SpO2 >90% on 6L via OxyMask. Pt demonstrating improved (I) with pursed lip breathing as tx progressed. Pt requesting OxyMask donned at end of tx. Independent grooming standing sinkfront. Declined further ADLs. Plan for final visit tomorrow to address any concerns with discharge home. Occupational Therapy Goals 1.Pt. to perform dressing activities with Min A. 2. Pt. to perform toileting activities with Mod I. 3. Pt. to perform showering activities with Min A. 4. Pt. to perform grooming activities with I. 5. Pt. to improve Chasity Index score by 2 points. Patient's Goal
[2018-06-07 13:42] VITALS: BP 150/49
--- NOTE | 2018-06-07 14:26 | Hospitalist Progress Note ---
Subjective Progress Notes Subjective No new complaints. The patient denies cough, shortness of breath or urinary symptoms. Physical Exam Vital Signs Date Time Temp Pulse Resp B/P (MAP) Pulse Ox O2 Delivery O2 Flow Rate FiO2 06/07/18 13:42 150/49 (82) 06/07/18 09:23 94 Nasal Cannula 3.0 06/07/18 07:45 97.8 60 18 Intake and Output 06/07/18 06:59 Intake Total 1150 ml Output Total 1150 ml Balance 0 ml Intake Oral 1150 ml Output Urine Total 1150 ml # Bowel Movements 1 General Appearance: Alert, Awake, No Acute Distress, Afebrile Neuro: No Gross deficits Eyes: PERRLA Cardiovascular: Regular Rate and Rhythm (With loud ANGIE.) Respiratory: Clear to Auscultation (Anteriorly.) GI: Soft and Non-Tender, Other (Midline abdominal wound without redness, drainage or tenderness.) Extremities: Warm, Perfused Integumentary: Other (See GI) Psych: Appropriate Mood & Affect Result Diagram: 06/07/18 0716 Assessment and Plan Problems: (1) Generalized weakness Status: Chronic Assessment & Plan: The patient was transferred to [facility] for further ankush abilitation after surgery to repair a ventral hernia with bowel obstruction. She has been working with PT/OT. (2) Ventral hernia with bowel obstruction Status: Resolved Assessment & Plan: She did present with nausea and vomiting. A CT scan showed a bowel obstruction related to a ventral hernia. She underwent operative repair with Dr. Emanuel on 05/24. She was transferred to [facility] for rehabilitation. (3) Hypothyroid Status: Chronic Assessment & Plan: She has been continued on Synthroid. (4) Hypertension, benign Status: Chronic Assessment & Plan: She is on chronic treatment with amlodipine and Lasix. (5) Chronic renal insufficiency, stage III (moderate) Status: Acute Assessment & Plan: Her creatinine is stable at her baseline. (6) Atrial fibrillation Status: Acute Assessment & Plan: She is on chronic treatment with Multaq. She has not been on anticoagulation chronically. (7) Morbid obesity with BMI of 50.0-59.9, adult Status: Chronic Assessment & Plan: Chronic. Central Venous Access Medical Necessity for Access: IV Access, Medication Administration Time Spent on Plan of Care: < 30 min ASHVIN MOORE MD Jun 07, 2018 14:26
[2018-06-07] MEDS ORDERED: DRON400T4 PO (14:33)
--- NOTE | 2018-06-07 14:40 | Hospitalist Depart ---
Discharge Summary Reason for Hosp/Final Diag: (1) Generalized weakness Status: Chronic Hospital Course & Plan: The patient was transferred to [facility] for further rehabilitation after surgery to repair a ventral hernia with bowel obstruction. She worked with PT/OT. She will be discharged to home with Home Health and will continue to work with PT and OT at home. (2) Ventral hernia with bowel obstruction Status: Resolved Hospital Course & Plan: She did present with nausea and vomiting. A CT scan showed a bowel obstruction related to a ventral hernia. She underwent operative repair with Dr. Dhillon on 05/24. She was transferred to [facility] for rehabilitation. (3) Hypothyroid Status: Chronic Hospital Course & Plan: She was continued on Synthroid. (4) Hypertension, benign Status: Chronic Hospital Course & Plan: She was continued on chronic treatment with amlodipine and Lasix. (5) Chronic renal insufficiency, stage III (moderate) Status: Acute Hospital Course & Plan: Her creatinine is stable at her baseline. (6) Atrial fibrillation Status: Acute Hospital Course & Plan: She was continued on chronic treatment with Multaq. She has not been on anticoagulation chronically. (7) Morbid obesity with BMI of 50.0-59.9, adult Status: Chronic Hospital Course & Plan: Chronic. Departure Weight (Pounds): 316 Weight (Ounces): 8.0 Result Diagram: 06/07/18 0716 Condition: Improved Discharge: Home, Home Health PT/OT Follow Up For: PT For Strengthening Home Health RN Follow Up For: Nursing Assessment Home Health [facility] Follow Up For: ADL Assistance Time Spent: < 30 min Discharge Instructions Home Meds Active Scripts Simvastatin (SIMVASTATIN) 20 Mg Tablet, 1 TAB PO HS, #90 TAB 3 Refills Prov:FERNIE GIVENS MD 05/09/18 Omeprazole (OMEPRAZOLE) 20 Mg Capsule.dr, 1 CAP PO DAILY PRN for REFLUX, #90 CAP 3 Refills Prov:FERNIE GIVENS MD 03/01/18 Exemestane (AROMASIN) 25 Mg Tab, 25 MG PO QHS, #90 TAB 3 Refills Prov:AASHISH REEVES MD 02/22/18 Levothyroxine Sodium (LEVOTHYROXINE SODIUM) 50 Mcg Tablet, 1 TAB PO QDAY, #90 TAB 3 Refills Prov:FERNIE GIVENS MD 08/23/17 Furosemide (FUROSEMIDE) 20 Mg Tablet, 1 TAB PO QDAY, #30 TAB 5 Refills Prov:FERNIE GIVENS MD 07/06/17 Amlodipine Besylate (AMLODIPINE BESYLATE) 10 Mg Tablet, 1 TAB PO QDAY, #90 TAB 4 Refills TAKE ONE TABLET BY MOUTH EVERY DAY Prov:FERNIE GIVENS MD 03/10/17 One Touch Ultra Test Strips (ONE TOUCH ULTRA TEST STRIPS) 1 Each Strip, 1 EACH MC QDAY, #100 STRIP 3 Refills Use once a day to test blood sugar Prov:FERNIE GIVENS MD 11/05/15 Reported Medications Dronedarone Hcl (MULTAQ) 400 Mg Tablet, 400 MG PO DAILY 06/07/18 Hydralazine Hcl (HYDRALAZINE HCL) 25 Mg Tablet, 25 MG PO TID 05/25/18 Methenamine Hippurate (METHENAMINE HIPPURATE) 1 Gm Tablet, 1 GM PO BID 03/01/18 Cholecalciferol (Vitamin D3) (VITAMIN D3) 1,000 Unit Tablet, 1000 UNIT PO QDAY, TAB 01/14/16 Psyllium Seed (METAMUCIL) 1 Each Packet, 1 PACK PO QDAY, PACKET 07/08/15 Acetaminophen (ACETAMINOPHEN) 650 Mg Tablet.er, 1 TAB PO Q8H PRN for PAIN, TAB 11/08/14 Follow up Referrals: Internal Medicine - In Two Weeks @ [facility]-Primary with FERNIE BANG MD Diet: Regular Activity: As Tolerated Special Instructions: Follow up with Dr. Dhillon per his recommendations. Copies to: FERNIE GIVENS MD; ISABELLA DHILLON MD ; Venous Thromboembolism Antithrombotics Is Pt On Any Antithrombotics?: Yes [id number] Certification Face to Face Home Health Certification Patient's Primary Care Provider: Fernie Givens MD Institutional Provider conducted the [id number] encounter. Electronic Undersigning Physician Certifies Home Health. I certify that the patient has been under my care and that I had a [id number]-[id number]-[id number] encounter that meets the physician [id number] encounter requirements with this patient. This patient is home-bound due to safety issues and continues to require assistance with ADL's. I certify that based on my findings, that Nursing, Aides and the following Home Health services are medically necessary: PT/OT Medical Necessity: Nursing, Rehab Date Face to Face Conducted: Jun 07, 2018 ASHVIN MOORE MD Jun 07, 2018 14:40
[2018-06-07 17:30] VITALS: BP 143/83
[2018-06-07] MEDS: SIMVASTATIN 20 MG TAB PO SCH (20:33)
[2018-06-07] MEDS: EXEMESTANE 25 MG TAB PO SCH (20:33)
[2018-06-08] MEDS: ACETAMINOPHEN 500 MG TAB PO PRN ×2 (01:53→20:30)
[2018-06-08] MEDS: LEVOTHYROXINE SOD 0.05 MG TAB PO SCH (06:27)
[2018-06-08 07:35] VITALS: BP 138/54
[2018-06-08] MEDS: hydrALAZINE HCL 25 MG TAB PO SCH ×3 (08:41→20:25)
[2018-06-08] MEDS: CHOLECALCIFEROL 1000 UNIT TAB PO SCH (08:44)
[2018-06-08] MEDS: FUROSEMIDE 20 MG TAB PO SCH (08:44)
[2018-06-08] MEDS: PANTOPRAZOLE SOD 40 MG TABEC PO SCH (08:44)
[2018-06-08] MEDS: ENOXAPARIN 30 MG/0.3 ML SYR SC SCH (08:45)
[2018-06-08] MEDS: DRONEDARONE HYDROCHLORIDE 400 MG TABLET PO SCH (08:45)
[2018-06-08] MEDS: amLODIPine BESYL(*) 5 MG TAB PO SCH (08:45)
[2018-06-08] MEDS: POLYETHYLENE GLYCOL 17 GM PKT PO SCH (09:00)
[2018-06-08] MEDS: DOCUSATE SODIUM 100 MG CAP PO SCH ×2 (09:00→20:25)
--- NOTE | 2018-06-08 12:35 | RADIOLOGY IMAGING REPORT ---
FACILITY: [facility] PATIENT NAME: Heather Gibson : 1930 MR: [id number] V: [id number] EXAM DATE: ORDERING PHYSICIAN: LUIS YOUNGER TECHNOLOGIST: Location: [facility] [place] Patient: Heather Gibson : 1930 Visit/Account:[id number] Date of Sevice: 06/08/2018 Exam type: CHEST SINGLE AP History: cough, SOB, increased oxygen use Comparison: May 27, 2018. Findings: Mild central pulmonary vascular congestion is again seen. The cardiac silhouette appears stable. Ca rdiac pacemaker leads again identified and appear unchanged. IMPRESSION: 1. Mild central pulmonary vascular congestion appears relatively unchanged when compared to the prio r study. Report Dictated By: Daxa Solorzano MD at 06/08/2018 12:29 PM Report E-Signed By: Daxa Solorzano MD at 06/08/2018 12:30 PM WSN:[id number]
--- NOTE | 2018-06-08 12:37 | NUR ---
Occupational Therapy Impression Pt alert and agreeable to OT tx. Reports no concerns to address prior to discharge home tomorrow. Reports not feeling her mobility is at baseline. Continued increased O2 demands noted with activity. SpO2 79% on 4L with mobility. SpO2 >86% on 6L with mobility. Discussed with pt and nursing O2 demands and need for concentrator at home that can accommodate 6L. Mod (I) ambulation 3x15ft with RW. Poor awareness for O2 tubing. Pt reports she walks across it at home. Independent grooming and UB dressing. Pt refusing to engage in further ADLs/IADLs. Plan for discharge from skilled OT services. Ok to discharge home when medically appropriate with needs met for O2 demands. Occupational Therapy Goals 1.Pt. to perform dressing activities with Min A. 2. Pt. to perform toileting activities with Mod I. 3. Pt. to perform showering activities with Min A. 4. Pt. to perform grooming activities with I. 5. Pt. to improve Chasity Index score by 2 points. Patient's Goal
[2018-06-08 13:58] VITALS: BP 145/55
--- NOTE | 2018-06-08 14:33 | NUR ---
DC MDS completed with pt. C: 08, D: 06, E: no concerns, Q: pt plans to DC to community, referral already made for HHS at [place]. Pt planning for DC tomorrow to home- no other DC needs identified from assessment with pt.
[2018-06-08 15:45] VITALS: BP 137/64
--- NOTE | 2018-06-08 17:41 | NUR ---
Physical Therapy Impression Pt continues to have difficulty maintaining SpO2 @ 5 L/min with increased activity. Unsure if pt's concentrator increases sufficiently for her needs at home. Pt also noted to be unable to transfer supine to sit indep and states that her bed at home is easier, or that she will have C assist her. Pt notes that she has been leaking around her catheter, which was not a concern previously at home. Pt's urine is also very strong in odor. Nursing staff notes that she pulled her catheter tube out with the ballooon inflated, causing a dilation most likely, which could be contributing to the leakage. Nursing alerted that this is causing pt some distress. During PT session, pt completed TUG test in 40 seconds today, as compared to 1 minute 8 seconds during eval visit. Physical Therapy Goals 1. Pt to be Modified indep with bed mobility and supine<>sit trnsfrs 2. Pt to be Modified indep with sit to/from stand transfers 3. Pt to tolerate ambulation x 100' with FWW and O2 in safe range throughout 4. Pt to complete up/down one small platform step to simulate threshold step into home. Patient's Goals
[2018-06-08] MEDS: SIMVASTATIN 20 MG TAB PO SCH (20:25)
[2018-06-08] MEDS: EXEMESTANE 25 MG TAB PO SCH (20:25)
[2018-06-09] MEDS: LEVOTHYROXINE SOD 0.05 MG TAB PO SCH (06:27)
[2018-06-09 06:51] VITALS: BP 158/73
[2018-06-09 07:32] VITALS: BP 133/66
[2018-06-09] MEDS: ACETAMINOPHEN 500 MG TAB PO PRN (07:38)
[2018-06-09] MEDS: hydrALAZINE HCL 25 MG TAB PO SCH (08:41)
[2018-06-09] MEDS: FUROSEMIDE 20 MG TAB PO SCH (08:43)
[2018-06-09] MEDS: amLODIPine BESYL(*) 5 MG TAB PO SCH (08:43)
[2018-06-09] MEDS: CHOLECALCIFEROL 1000 UNIT TAB PO SCH (08:43)
[2018-06-09] MEDS: PANTOPRAZOLE SOD 40 MG TABEC PO SCH (08:43)
[2018-06-09] MEDS: DRONEDARONE HYDROCHLORIDE 400 MG TABLET PO SCH (08:43)
[2018-06-09] MEDS: POLYETHYLENE GLYCOL 17 GM PKT PO SCH (08:44)
[2018-06-09] MEDS: ENOXAPARIN 30 MG/0.3 ML SYR SC SCH (08:44)
[2018-06-09] MEDS: DOCUSATE SODIUM 100 MG CAP PO SCH (08:44)
--- NOTE | 2018-06-09 09:49 | NUR ---
Patient's vital signs have been stable this morning - no temperature noted. She is still with moist cough and shortness of breath - CXR from 06/08 showed no significant changes from previous CXR earlier this month. [employer] notified yesterday of SOB and moist cough, as well as patient appearing tired and weight changes. Patient is already on lasix, and creatinine and BUN have been high. [employer] ordered flutter device. Lab work from 06/07 reveal a WBC WNL. This morning, patient was still tired, with moist cough, and upper respiratory wheezes (which she had yesterday as well), feel cold and shivering a little bit. She ate breakfast readily and seemed to perk up after eating. I asked if she was nervous about going home, and she expressed concern about her mobility. We talked about how she met therapy goals, and would have more opportunity at home to move. We have also discussed importance of oxygen management (being on oxymask at all times except eating, and titrating to 6L oxymask with activity). Patient demonstrated switching from the oxymask to nasal cannula and back. She also signed the medicare non-coverage and verbalized understanding of her right to contest.
--- NOTE | 2018-06-09 10:13 | NUR ---
Assessed urinary catheter with Paris John RN - no kinks and is draining. Just slightly less output than normal. Encouraging fluids.
--- NOTE | 2018-06-09 11:22 | NUR ---
Physical Therapy Impression Pt refused all mobility this date noting she is ready to go home and does not have any concerns. Discussed therapy concerns regarding bed mobility, titrating O2 with activity, and the platform step. Pt is resistant to education on these items and reports "I'll be okay when I get home" and "my bed is much easier at home". Pt's daughter present during this education and also reports no concerns. Nursing notified of this. Pt plans to D/C with services despite not completing all therapy goals while here on extended care. Physical Therapy Goals 1. Pt to be Modified indep with bed mobility and supine<>sit trnsfrs 2. Pt to be Modified indep with sit to/from stand transfers 3. Pt to tolerate ambulation x 100' with FWW and O2 in safe range throughout 4. Pt to complete up/down one small platform step to simulate threshold step into home. Patient's Goals
--- NOTE | 2018-06-09 14:33 | OT ECF NOTE ---
Type of Note: Discharge Note Primary Medical Diagnosis: Incarcerated ventral hernia Occupational Therapy Evaluation Date: 05-29-18 SUBJECTIVE: Prior Hospitalization: 05-22-18 to 05-29-18 [facility] medical floor , Dr. Ballard completed sx for SBO on 05/24/18. Prior Level of Function: Assistance from HH care Prior Living Status: Single level house Living with family Community Services: Home health care- [facility] has been assisting with showering activities and catheter retirement Accessibility: Ramp All needs on one level Equipment Owned: Front wheeled walker Medical Complications/Past Medical History: please refer to chart for details Psychosocial Support: supportive daughter Pain Scale (0-10): None stated during initial evaluation. OBJECTIVE: Strength: MMT: Right Left Shoulder Flexion [*] [*] Elbow Flexion [*] [*] Wrist Extension [*] [*] Lumber Puller [*] [*] (5= normal, 4= good, 3= fair, 2= poor, 1= trace) Functional Transfer: Assistive Device: Front wheeled walker Transfer Ability: Mod (I) on 6 ADL: Upper body dressing: Assistive device: None Upper body dressing ability: Set-up Lower body dressing: Assistive device: Lower body dressing ability: Independent donning slippers. Pt reports not wearing socks/underwear at home. Typically wears dresses. Toileting: Assistive device: Toileting ability: SBA with encouragement to complete norbert-care (I)ly. Pt able to complete norbert-care (I)ly with occasional assist for thoroughness. Reports wider toilet at home that improves (I). Grooming/hygiene: Assistive device: Standing Grooming ability: Independent Bathing: Assistive device: Seated Bathing ability: Min A sponge bath seated. Pt declined shower but reports assist with shower at home. Standardized Assessment: Chasity Index of Activities of Daily Living- Pt. scored a 10/20 on this Index upon initial evaluation. 14/20 at discharge (06/09/18). ASSESSMENT: Pt. is a 88 year old female who was admitted to [facility] medical floor on 05/22/18 with nausea, vomitting and weakness. Pt. underwent surgery on 05/24/18 (Dr. Ballard) to repair a incarcerated ventral hernia. Pt. resides in [place] with her son. Pt. has a ramp with threshold to enter home and then all her needs are on one level (son resides in the basement of home). Pt has met all skilled OT goals and presents with no further questions/concerns with regards to discharge home. Requires 6L of O2 with activity and O2 demands are improved with OxyMask. Pt verbalizes understanding. Short Term Goals: 1.Pt. to perform dressing activities with Min A. GOAL MET 2. Pt. to perform toileting activities with Mod I. GOAL MET 3. Pt. to perform showering activities with Min A. GOAL MET 4. Pt. to perform grooming activities with I. GOAL MET 5. Pt. to improve Chasity Index score by 2 points.GOAL MET Senior Living Goals: Return with HH Patient Goals: Return home Rehabilitation Prognosis: Fair Barriers to Discharge: advanced age PLAN: The patient will discharge home with services and assist from son. Thank you for this referral. If you have any questions, concerns, or comments about this report or plan, please contact me at . Xin Lawrence MS, OTR/L Occupational Therapist FERMÍN
== END 2018-06-09 11:05 | disposition home health service (06) | DRG 949 ==
LOC: ECF 10:30
PROVIDERS: ADMIT Internal Medicine; ATTEND Internal Medicine
DX: Z48.89 Encounter for other specified surgical aftercare (principal); Z68.43 Body mass index [BMI] 50.0-59.9, adult; R53.1 Weakness; I48.2 Chronic atrial fibrillation; N18.3 Chronic kidney disease, stage 3 (moderate); I12.9 Hypertensive chronic kidney disease with stage 1 through stage 4 chronic kidney disease, or unspecified chronic kidney disease; E03.9 Hypothyroidism, unspecified; E66.01 Morbid (severe) obesity due to excess calories; E11.22 Type 2 diabetes mellitus with diabetic chronic kidney disease; Z96.0 Presence of urogenital implants; Z85.3 Personal history of malignant neoplasm of breast; Z95.0 Presence of cardiac pacemaker; Z96.653 Presence of artificial knee joint, bilateral; Z85.038 Personal history of other malignant neoplasm of large intestine
CPT/HCPCS: 36415; 36416; 71045; 82948; 85025; 97161; 97165; J1650

== ENCOUNTER 2018-06-11 17:56 | Inpatient (IN) | payer MEDICARE, OTHER ==
[~2018-06-11] VITALS: Ht 160 cm; Wt 144.7 kg
--- NOTE | 2018-06-11 18:03 | ER Report ---
History and Physical Time Seen By MD: 18:03 HPI/ROS CHIEF COMPLAINT: Hypoxia HISTORY OF PRESENT ILLNESS: 88-year-old female recently discharged from [facility] for rehabilitation after having an incarcerated ventral hernia repaired by Dr. Ballard several weeks ago. Patient was sent in by visiting nurse you've rounded on her for the 1st time today. Patient was noted to be hypoxic on 6 L to maintain sats at 90%. She got up to ambulated to the bathroom, her saturations dropped to 60%. Patient was barely able to get 2 steps before she decompensated and almost fell. Patient notes mild shortness of breath began last evening. She's become increasingly short of breath throughout the entire day. She notes no fevers, chills or chest pain. She does note increased swelling in her lower extremities. Patient has a pacemaker and atrial fibrillation. Patient states normal appetite and normal, eating and drinking. She's had no diarrhea or valverde e in bowel habits. She has a chronic indwelling Ramos catheter. REVIEW OF SYSTEMS: Respiratory: As above Cardiovascular: No chest pain, no palpitations. Gastrointestinal: No vomiting, no abdominal pain. Musculoskeletal: No back pain. Allergies: Coded Allergies: morphine (Verified Allergy, Severe, dyspnea, 10/11/13) DECREASED RESPIRATORY RATE "AUTO REFLEX STOPS WORKING" letrozole (Unverified Allergy, Mild, itchy, hives, 10/12/13) SALO Inhibitors (Unverified Allergy, Unknown, 10/12/13) codeine (Verified Adverse Reaction, Mild, NAUSEA/VOMITING, 10/11/13) Home Meds Active Scripts Simvastatin (SIMVASTATIN) 20 Mg Tablet, 1 TAB PO HS, #90 TAB 3 Refills Prov:FERNIE REID MD 05/09/18 Omeprazole (OMEPRAZOLE) 20 Mg Capsule., 1 CAP PO DAILY PRN for REFLUX, #90 CAP 3 Refills Prov:FERNIE REID MD 03/01/18 Exemestane (AROMASIN) 25 Mg Tab, 25 MG PO QHS, #90 TAB 3 Refills Prov:AASHISH REEVES MD 02/22/18 Levothyroxine Sodium (LEVOTHYROXINE SODIUM) 50 Mcg Tablet, 1 TAB PO QDAY, #90 TAB 3 Refills Prov:FERNIE REID MD 08/23/17 Furosemide (FUROSEMIDE) 20 Mg Tablet, 1 TAB PO QDAY, #30 TAB 5 Refills Prov:FERNIE REID MD 07/06/17 Amlodipine Besylate (AMLODIPINE BESYLATE) 10 Mg Tablet, 1 TAB PO QDAY, #90 TAB 4 Refills TAKE ONE TABLET BY MOUTH EVERY DAY Prov:FERNIE REID MD 03/10/17 One Touch Ultra Test Strips (ONE TOUCH ULTRA TEST STRIPS) 1 Each Strip, 1 EACH MC QDAY, #100 STRIP 3 Refills Use once a day to test blood sugar Prov:FERNIE REID MD 11/05/15 Reported Medications Sulfamethoxazole/Trimet 800-160 Mg Tab (BACTRIM DS TABLET) 1 Each Tablet, 1 TAB PO BID, TAB 06/11/18 Dronedarone Hcl (MULTAQ) 400 Mg Tablet, 400 MG PO DAILY 06/07/18 Hydralazine Hcl (HYDRALAZINE HCL) 25 Mg Tablet, 25 MG PO TID 05/25/18 Methenamine Hippurate (METHENAMINE HIPPURATE) 1 Gm Tablet, 1 GM PO BID 03/01/18 Cholecalciferol (Vitamin D3) (VITAMIN D3) 1,000 Unit Tablet, 1000 UNIT PO QDAY, TAB 01/14/16 Psyllium Seed (METAMUCIL) 1 Each Packet, 1 PACK PO QDAY, PACKET 07/08/15 Acetaminophen (ACETAMINOPHEN) 650 Mg Tablet.er, 1 TAB PO Q8H PRN for PAIN, TAB 11/08/14 Reviewed Nurses Notes: Yes Old Medical Records Reviewed: Yes Hx Smoking: Yes (for 4 or 5 years in her 20's or 30's) Smoking Status: Former Smoker Hx Substance Use Disorder: No Hx Alcohol Use: No Constitutional Vital Sign - Last 24 Hours 06/11/18 06/11/18 06/11/18 06/11/18 17:58 18:03 18:11 18:20 Temp 97.7 Pulse 65 85 Resp 20 33 B/P (MAP) 119/61 119/61 (80) Pulse Ox 88 88 85 O2 Delivery Oxy Mask Oxy Mask O2 Flow Rate 4.0 06/11/18 06/11/18 06/11/18 06/11/18 18:20 18:26 18:27 18:27 Pulse 65 68 67 Resp 20 16 20 Pulse Ox 86 93 O2 Delivery Oxy Mask O2 Flow Rate 15.0 06/11/18 06/11/18 06/11/18 06/11/18 18:41 18:56 19:11 19:26 Pulse 74 62 64 69 Resp 25 37 16 17 Pulse Ox 93 95 93 98 06/11/18 06/11/18 06/11/18 19:30 19:45 20:00 Pulse 67 78 72 Resp 18 16 23 Pulse Ox 97 98 96 Physical Exam Vital signs stable, afebrile, requiring 6 L by Ventimask normally requires 3 L to maintain saturations in the low 90s mildly increased work of breathing General Appearance: The patient is alert, has no immediate need for airway protection and no current signs of toxicity. Slightly pale appearing, skin warm and dry HEENT: Pupils equal and round no injection. Oropharynx with dry mucous membranes, mild erythema Respiratory: Chest is non tender, decreased breath sounds bilaterally, faint bibasilar Rales bilaterally, pacemaker right upper chest Cardiac: regular rate and rhythm, distant heart sounds Gastrointestinal: Abdomen is soft and non tender, no masses, bowel sounds normal. Intact abdominal incision without infection Musculoskeletal: Neck: Neck is supple and non tender. No JVD, no lymphadenopathy Extremities have full range of motion and are non tender. 2+ edema bilaterally Skin: No rashes or lesions. DIFFERENTIAL DIAGNOSIS: After history and physical exam differential diagnosis was considered for shortness of breath including but not limited to pulmonary infectious process, COPD, asthma, pulmonary embolus and congestive heart failure. Medical Decision Making Data Points Result Diagram: 06/12/18 0600 06/12/18 0600 Laboratory Hematology Test 06/11/18 17:50 06/11/18 18:12 06/11/18 18:13 06/11/18 18:42 Troponin I 0.030 ng/ml B-Type Natriuretic Peptide 281 pg/ml (0-100) Lactate 0.7 mmol/L (0.7-2.1) Urine Color Yellow Urine Clarity Cloudy Urine pH 5.0 pH (4.8-9.5) Urine Specific [place] 1.014 Urine Protein 100 mg/dL (NEGATIVE) Urine Glucose (UA) Negative mg/dL (NEGATIVE) Urine Ketones Negative mg/dL (NEGATIVE) Urine Blood Small (NEGATIVE) Urine Nitrite Negative (NEGATIVE) Urine Bilirubin Negative (NEGATIVE) Urine Urobilinogen Negative mg/dL (0.2-1.9) Urine Leukocyte Esterase Large (NEGATIVE) Urine RBC 11 /HPF (0-2/HPF) Urine WBC 546 /HPF (0-5/HPF) Urine WBC Clumps Many /HPF Urine Squamous Epithelial Cells Many /LPF (NONE-FEW) Urine Bacteria Many /HPF (NONE-FEW) Urine Mucus Few /HPF (NONE-FEW) Prothrombin Time 13.3 seconds (12.0-14.4) Prothromb Time International Ratio 1.01 Activated Partial Thromboplast Time 30 seconds (23-35) Chemistry Test 06/11/18 17:50 06/11/18 18:12 06/11/18 18:13 06/11/18 18:42 Troponin I 0.030 ng/ml B-Type Natriuretic Peptide 281 pg/ml (0-100) Lactate 0.7 mmol/L (0.7-2.1) Urine Color Yellow Urine Clarity Cloudy Urine pH 5.0 pH (4.8-9.5) Urine Specific [place] 1.014 Urine Protein 100 mg/dL (NEGATIVE) Urine Glucose (UA) Negative mg/dL (NEGATIVE) Urine Ketones Negative mg/dL (NEGATIVE) Urine Blood Small (NEGATIVE) Urine Nitrite Negative (NEGATIVE) Urine Bilirubin Negative (NEGATIVE) Urine Urobilinogen Negative mg/dL (0.2-1.9) Urine Leukocyte Esterase Large (NEGATIVE) Urine RBC 11 /HPF (0-2/HPF) Urine WBC 546 /HPF (0-5/HPF) Urine WBC Clumps Many /HPF Urine Squamous Epithelial Cells Many /LPF (NONE-FEW) Urine Bacteria Many /HPF (NONE-FEW) Urine Mucus Few /HPF (NONE-FEW) Prothrombin Time 13.3 seconds (12.0-14.4) Prothromb Time International Ratio 1.01 Activated Partial Thromboplast Time 30 seconds (23-35) Coagulation Test 06/11/18 18:42 Prothrombin Time 13.3 seconds Prothromb Time International Ratio 1.01 Activated Partial Thromboplast Time 30 seconds Urinalysis Test 06/11/18 18:13 Urine Color Yellow Urine Clarity Cloudy Urine pH 5.0 pH (4.8-9.5) Urine Specific [place] 1.014 Urine Protein 100 mg/dL (NEGATIVE) Urine Glucose (UA) Negative mg/dL (NEGATIVE) Urine Ketones Negative mg/dL (NEGATIVE) Urine Blood Small (NEGATIVE) Urine Nitrite Negative (NEGATIVE) Urine Bilirubin Negative (NEGATIVE) Urine Urobilinogen Negative mg/dL (0.2-1.9) Urine Leukocyte Esterase Large (NEGATIVE) Urine RBC 11 /HPF (0-2/HPF) Urine WBC 546 /HPF (0-5/HPF) Urine WBC Clumps Many /HPF Urine Squamous Epithelial Cells Many /LPF (NONE-FEW) Urine Bacteria Many /HPF (NONE-FEW) Urine Mucus Few /HPF (NONE-FEW) Microbiology Microbiology Date/Time Source Procedure Growth Status 06/11/18 18:42 Blood Peripheral Draw Blood Culture - Preliminary NO GROWTH AFTER 1 DAY, REINCUBATED Resulted 06/11/18 18:13 Blood Peripheral Draw Blood Culture - Preliminary NO GROWTH AFTER 1 DAY, REINCUBATED Resulted 06/11/18 18:13 Cath Urine Urine Culture - Preliminary Resulted EKG/Imaging EKG Interpretation 12 lead EK Rhythm: Demand pacemaker [place]: normal QRS: normal ST segments: normal, comparison to previous EKG 05/22/18, no significant change in intrinsic beats. Imaging X-ray: Single view portable chest x-ray was obtained. I viewed the images myself on the PACS system. My interpretation of the images is: Intact pacemaker in the right upper chest, increase in left pleural effusion, increased pulmonary vascular congestion compared to previous film 06/08/18. The radiologist interpretation had no clinically significant variation from this interpretation. ED Course/Re-evaluation Clinical Indication for ER IV: IV Access ED Course Patient was admitted to an examination room. H&P was done. The differential diagnoses was considered. Patient with worsening hypoxia. Rest x-ray shows increased pulmonary vascular congestion and increased pleural effusion on the l eft. Patient likely suffering mild congestive heart failure. She also has acute on chronic renal failure. She has a urinary tract infection. Her diagnostic laboratory studies. There is no fever, no productive cough to suggest pneumonia. Patient's Lactate is normal, suggesting no evidence of se psis at this time. Patient's troponin was mildly elevated to 0.030, review of her record shows that back at 05/22. Her troponin was mildly elevated to 0.022. It's likely elevated secondary to her acute renal failure. 06/11/2018 7:30:58 pm case discussed with Vamshi Nix hospitalist on-call, rosy garcia accepts patient for admission for treatment of her congestive heart failure, her urinary tract infection. Her acute on chronic renal failure Decision to Disposition Date: Jun 11, 2018 Decision to Disposition Time: 19:13 Depart Departure Latest Vital Signs Vital Signs Date Time Temp Pulse Resp B/P (MAP) Pulse Ox O2 Delivery O2 Flow Rate FiO2 06/11/18 20:00 72 23 96 06/11/18 18:27 Oxy Mask 15.0 06/11/18 18:03 119/61 (80) 06/11/18 17:58 97.7 Impression: Primary Impression: Hypoxia Additional Impressions: Acute on chronic renal failure Urinary tract infection Type 2 diabetes mellitus Weakness generalized Congestive heart failure Condition: Improved Disposition: Admitted from ER Referrals: FERNIE REID MD (PCP) Problem Qualifiers Additional Impressions: Acute on chronic renal failure Acute renal failure type: unspecified Chronic kidney disease stage: stage 3 (moderate) Qualified Codes: N17.9 - Acute kidney failure, unspecified; N18.3 - Chronic kidney disease, stage 3 (moderate) Urinary tract infection Urinary tract infection type: acute cystitis Hematuria presence: without hematuria Qualified Codes: N30.00 - Acute cystitis without hematuria Type 2 diabetes mellitus Diabetes mellitus jail insulin use: unspecified jail insulin use status Diabetes mellitus complication status: with kidney complications Diabetes mellitus complication detail: with chronic kidney disease Chronic kidney disease stage: stage 3 (moderate) Qualified Codes: E11.22 - Type 2 diabetes mellitus with diabetic chronic kidney disease; N18.3 - Chronic kidney disease, stage 3 (moderate) Congestive heart failure Heart failure type: unspecified Heart failure chronicity: acute Qualified Codes: I50.9 - Heart failure, unspecified MARIBELL HEARD DO Jun 11, 2018 18:03
[2018-06-11] MEDS ORDERED: methylPREDNIS SUCC 125 MG/2ML IVP ONE (18:10)
[2018-06-11] MEDS ORDERED: ALBUTEROL/IPRATROPIUM 3 ML NEB NEB ONE (18:10)
[2018-06-11 18:21] LABS: PLATELET COUNT, AUTOMATED 220 K/uL (150-450)
--- NOTE | 2018-06-11 18:33 | EKG ---
FACILITY: [facility] [place] PATIENT NAME: LOYDA SALDAÑA : [id number] MR: [id number] V: [id number] EXAM DATE: ORDERING PHYSICIAN: MARIBELL HEARD TECHNOLOGIST: Test Reason : Blood Pressure : / mmHG Vent. Rate : 081 BPM Atrial Rate : 081 BPM P-R Int : 144 ms QRS Dur : 136 ms QT Int : 418 ms P-R-T Axes : 000 084 015 degrees QTc Int : 485 ms Underlying rhythm appears to be sinus with intermittent electronic atrial pacemaker Nonspecific intraventricular block Abnormal ECG Confirmed by SHANDRA MOORE ([id number]) on 06/11/2018 7:44:19 PM Referred By: Confirmed By:SHANDRA MOORE
[2018-06-11 18:59] LABS: INR 1.01
--- NOTE | 2018-06-11 19:09 | RADIOLOGY IMAGING REPORT ---
FACILITY: [facility] PATIENT NAME: Heather Gibson : 1930 MR: [id number] V: [id number] EXAM DATE: ORDERING PHYSICIAN: MARIBELL HEARD TECHNOLOGIST: Location: [facility] Patient: Heather Gibson : 1930 Visit/Account:[id number] Date of Sevice: 06/11/2018 CHEST SINGLE AP HISTORY: Respiratory distress COMPARISON: 06/08/2018 FINDINGS: Cardiomediastinal contours: Enlarged but unchanged. Subclavian bipolar pacemaker. Retained left pac emaker leads. Lungs and pleura: Continued distention the pulmonary vascularity. Stable mild bibasilar pleural-pare nchymal opacities. Bones/soft tissues: Normal Other findings: None significant IMPRESSION: 1. Continued distention the pulmonary vascularity with small bilateral pleural effusions. Recommend clinical correlation for interstitial edema. Report Dictated By: Ar Yepez MD at 06/11/2018 7:04 PM Report E-Signed By: Ar Yepez MD at 06/11/2018 7:05 PM WSN:[email or web address]
[2018-06-11 21:01] VITALS: BP 135/67
[2018-06-11] MEDS ORDERED: INFLUENZA VIRUS VAC 0.5ML SYR IM ONLY ONE (21:15)
--- NOTE | 2018-06-11 21:37 | History & Physical ---
History of Present Illness Chief Complaint "I feel terrible" History of Present Illness 88yo female with extensive PMHx including recent admission with UTI and SBO secondary to ventral hernia which required surgical repair. [facility] for [facility]/strengthening as well. She returned home 2 days ago. She states she began feeling "terrible" with generalized weakness, poor appetite, body aches. She denied any fevers/chills/N/V/diarrhea. She has an indwelling Ramos catheter and has had several UTIs in past couple of years. She was referred to the ER by her Home Health nurse. She was found to have possible recurrent UTI and recommended for admission. History Problems: (1) Morbid obesity with BMI of 50.0-59.9, adult Status: Chronic (2) Congestive heart failure Status: Chronic (3) Anemia Status: Chronic (4) Hypothyroid Status: Chronic (5) Recurrent UTI (urinary tract infection) Status: Chronic (6) Malignant neoplasm of breast (female), unspecified site Status: Chronic (7) Chronic renal insufficiency, stage III (moderate) Status: Chronic (8) Hypertension, benign Status: Chronic (9) Hypothyroidism Status: Chronic (10) Type II diabetes mellitus Onset Date: 04/10/2014 Status: Chronic (11) Hypertension Status: Chronic (12) Sleep apnea Status: Chronic (13) Pacemaker Status: Chronic (14) Atrial fibrillation Status: Chronic (15) Hypercholesterolemia Status: Chronic (16) Mass of left kidney Status: Chronic (17) Actinic keratoses Status: Chronic (18) Seborrheic keratoses Status: Chronic (19) SBO (small bowel obstruction) Status: Resolved (20) History of ventral hernia repair Status: Resolved Home Meds Active Scripts Simvastatin (SIMVASTATIN) 20 Mg Tablet, 1 TAB PO HS, #90 TAB 3 Refills Prov:FERNIE REID MD 05/09/18 Omeprazole (OMEPRAZOLE) 20 Mg Capsule.dr, 1 CAP PO DAILY PRN for REFLUX, #90 CAP 3 Refills Prov:FERNIE REID MD 03/01/18 Exemestane (AROMASIN) 25 Mg Tab, 25 MG PO QHS, #90 TAB 3 Refills Prov:AASHISH REEVES MD 02/22/18 Levothyroxine Sodium (LEVOTHYROXINE SODIUM) 50 Mcg Tablet, 1 TAB PO QDAY, #90 TAB 3 Refills Prov:FERNIE REID MD 08/23/17 Furosemide (FUROSEMIDE) 20 Mg Tablet, 1 TAB PO QDAY, #30 TAB 5 Refills Prov:FERNIE REID MD 07/06/17 Amlodipine Besylate (AMLODIPINE BESYLATE) 10 Mg Tablet, 1 TAB PO QDAY, #90 TAB 4 Refills TAKE ONE TABLET BY MOUTH EVERY DAY Prov:FERNIE REID MD 03/10/17 One Touch Ultra Test Strips (ONE TOUCH ULTRA TEST STRIPS) 1 Each Strip, 1 EACH MC QDAY, #100 STRIP 3 Refills Use once a day to test blood sugar Prov:FERNIE REID MD 11/05/15 Reported Medications Dronedarone Hcl (MULTAQ) 400 Mg Tablet, 400 MG PO DAILY 06/07/18 Hydralazine Hcl (HYDRALAZINE HCL) 25 Mg Tablet, 25 MG PO TID 05/25/18 Methenamine Hippurate (METHENAMINE HIPPURATE) 1 Gm Tablet, 1 GM PO BID 03/01/18 Cholecalciferol (Vitamin D3) (VITAMIN D3) 1,000 Unit Tablet, 1000 UNIT PO QDAY, TAB 01/14/16 Psyllium Seed (METAMUCIL) 1 Each Packet, 1 PACK PO QDAY, PACKET 07/08/15 Acetaminophen (ACETAMINOPHEN) 650 Mg Tablet.er, 1 TAB PO Q8H PRN for PAIN, TAB 11/08/14 Allergies: Coded Allergies: morphine (Verified Allergy, Severe, dyspnea, 10/11/13) DECREASED RESPIRATORY RATE "AUTO REFLEX STOPS WORKING" letrozole (Unverified Allergy, Mild, itchy, hives, 10/12/13) SALO Inhibitors (Unverified Allergy, Unknown, 10/12/13) codeine (Verified Adverse Reaction, Mild, NAUSEA/VOMITING, 10/11/13) Patient History: FH: CHF (congestive heart failure) FATHER (Cause of CHF), , Age:72 FH: cancer BROTHER, FH: colon cancer BROTHER, BROTHER, FH: coronary artery disease SISTER FH: leukemia MOTHER (cause of Leukemia), , Age:70 FH: lung cancer BROTHER, FH: multiple sclerosis DAUGHTER Hx Smoking: Yes (for 4 or 5 years in her 20's or 30's) Smoking Status: Former Smoker Caffeine Intake: Coffee, Tea Caffeine/Cups Per Day: 1-2 Hx Alcohol Use: No Hx Substance Use Disorder: No Social Drug Use: Never Review of Systems Constitutional: No Fever, No Chills Neurological: Weakness Cardiovascular: No Chest Pain Respiratory: Shortness of Breath Gastrointestinal: No Nausea, No Vomiting, No Diarrhea, No Abdominal Pain Genitourinary: Other (indwelling Ramos cath) Exam Vital Signs Vital Signs Date Time Temp Pulse Resp B/P (MAP) Pulse Ox O2 Delivery O2 Flow Rate FiO2 06/11/18 20:35 62 18 93 06/11/18 20:32 6.0 06/11/18 18:27 Oxy Mask 06/11/18 18:03 119/61 (80) 06/11/18 17:58 97.7 General Appearance: Alert, Awake ENT: Oropharynx Clear Neck: No Masses Cardiovascular: Other (Fairly regular with systolic murmur) Respiratory: Other (Decreased breath sounds bilaterally) Chest: No Tenderness, Other (previous mastectomy) GI: Other (obese/soft/BS present/surgical incision with steristrips no drainage noted/no erythema) Extremities: Warm, Perfused, Other (diffuse chronic lymphedema changes both LE/no erythema/no drainage) Integumentary: Generalized Fragile Skin Psych: Alert & Oriented X3 Medical Decision Making Data Points Result Diagram: 06/11/18 1750 06/11/18 1750 Item Value Date Time Urine Mucus Few /HPF 06/11/181812 Urine Bacteria Many /HPF H 06/11/181812 Urine Squamous Epithelial Cells Many /LPF H 06/11/181812 Urine WBC Clumps Many /HPF 06/11/181812 Urine WBC 546 /HPF 06/11/181812 Urine RBC 11 /HPF 06/11/181812 Urine Leukocyte Esterase Large H 06/11/181812 Urine Urobilinogen Negative mg/dL 06/11/181812 Urine Bilirubin Negative 06/11/181812 Urine Nitrite Negative 06/11/181812 Urine Blood Small 06/11/181812 Urine Ketones Negative mg/dL 06/11/181812 Urine Glucose (UA) Negative mg/dL 06/11/181812 Urine Protein 100 mg/dL 06/11/181812 Urine Specific [place] 1.014 06/11/181812 Urine pH 5.0 pH 06/11/181812 Urine Clarity Cloudy 06/11/18 181 Urine Color Yellow 06/11/18 1813 Albumin 4.0 g/dl 06/11/18 1750 Total Protein 7.5 g/dl 06/11/18 1750 Troponin I 0.030 ng/ml 06/11/18 1750 Alkaline Phosphatase 98 U/L 06/11/18 1750 Alanine Aminotransferase (ALT/SGPT) 22 U/L 06/11/18 1750 Aspartate Amino Transf (AST/SGOT) 25 U/L 06/11/18 1750 Total Bilirubin 0.4 mg/dl 06/11/18 1750 B-Type Natriuretic Peptide 281 pg/ml H 06/11/18 1750 Calcium Level 9.7 mg/dl 06/11/18 1750 Lactate 0.7 mmol/L 06/11/18 181 Activated Partial Thromboplast Time 30 seconds 06/11/18 184 Prothromb Time International Ratio 1.01 06/11/18 184 Prothrombin Time 13.3 seconds 06/11/181841 EKG / Imaging EKG Interpretation PATIENT NAME: HEATHER GIBSON : [id number] MR: [id number] V: [id number] EXAM DATE: ORDERING PHYSICIAN: MARIBELL HEARD TECHNOLOGIST: Test Reason : Blood Pressure : / mmHG Vent. Rate : 081 BPM Atrial Rate : 081 BPM P-R Int : 144 ms QRS Dur : 136 ms QT Int : 418 ms P-R-T Axes : 000 084 015 degrees QTc Int : 485 ms Underlying rhythm appears to be sinus with intermittent electronic atrial pacemaker Nonspecific intraventricular block Abnormal ECG Confirmed by SHANDRA MOORE ([id number]) on 06/11/2018 7:44:19 PM Referred By: Confirmed By:SHANDRA MOORE Imaging PATIENT NAME: Heather Gibson : 1930 MR: [id number] V: [id number] EXAM DATE: ORDERING PHYSICIAN: MARIBELL HEARD TECHNOLOGIST: Location: [facility] [place] Patient: Heather Gibson : 1930 Visit/Account:[id number] Date of Sevice: 06/11/2018 CHEST SINGLE AP HISTORY: Respiratory distress COMPARISON: 06/08/2018 FINDINGS: Cardiomediastinal contours: Enlarged but unchanged. Subclavian bipolar pacemaker. Retained left pacemaker leads. Lungs and pleura: Continued distention the pulmonary vascularity. Stable mild bibasilar pleural-parenchymal opacities. Bones/soft tissues: Normal Other findings: None significant IMPRESSION: 1. Continued distention the pulmonary vascularity with small bilateral pleural effusions. Recommend clinical correlation for interstitial edema. Report Dictated By: Ar Yepez MD at 06/11/2018 7:04 PM Report E-Signed By: Ar Yepez MD at 06/11/2018 7:05 PM WSN:[facility] Assessment and Plan Problems: (1) Recurrent UTI (urinary tract infection) Status: Chronic Assessment & Plan: It appears she has another catheter associated urinary tract infection. Cultures have been done. Will place on renal dosed cefepime 1gm IV q24hrs (due to history of multiple different GNRs including Pseudomonas in the past). Will also change Ramos cath. Modify antibiotics based on culture results. (2) Acute on chronic renal failure Status: Chronic Assessment & Plan: She appears to have pre-renal indices. Most likely due to poor intake and diuretic use. Will give IV fluids overnight. Monitor labs/UOP. (3) Hypothyroidism Status: Chronic Assessment & Plan: Continue replacement therapy. (4) Type II diabetes mellitus Onset Date: 04/10/2014 Status: Chronic Assessment & Plan: Place on ADA diet. Watch glucoses and use SSI as needed. (5) Hypertension Status: Chronic Assessment & Plan: Monitor BPs and resume her amlodipine and hydralazine as needed. (6) Atrial fibrillation Status: Chronic Assessment & Plan: She has been managed with Multaq 400mg daily. She has not been on chronic anticoagulation therapy. She is also not on any rate control medications at this time. She does have a pacemaker in place. (7) History of ventral hernia repair Status: Resolved Assessment & Plan: She appears to be healing fairly well. Central Venous Access Medical Necessity for Access: IV Access, Medication Administration Venous Thromboembolism Antithrombotics Is Pt On Any Antithrombotics?: Yes Exam Sepsis Risk: No Definite Risk Problem Qualifiers (1) Acute on chronic renal failure: Acute renal failure type: unspecified Chronic kidney disease stage: stage 3 (moderate) Qualified Codes: N17.9 - Acute kidney failure, unspecified; N18.3 - Chronic kidney disease, stage 3 (moderate) SHANDRA MOORE MD Jun 11, 2018 21:37
[2018-06-11] MEDS ORDERED: WATER STERILE(*) 10 ML VIAL 10 ML ONE (22:46)
[2018-06-11] MEDS: CEFEPIME HCL 1 GM VIAL IVP SCH (22:57)
[2018-06-11] MEDS: NS(*) 0.9% 1000 ML BAG 1,000 ML IV PRN (22:58)
[2018-06-11] MEDS ORDERED: SULF-198 PO (23:04)
[2018-06-11] MEDS: INSULIN HUM LISPRO 100 UN/ML 3 ML VIAL SUBQ PRN (23:08)
[2018-06-12 04:13] VITALS: BP 130/50
[2018-06-12] MEDS: LEVOTHYROXINE SOD 0.05 MG TAB PO SCH (05:34)
[2018-06-12 06:10] LABS: PLATELET COUNT, AUTOMATED 198 K/uL (150-450)
[2018-06-12] MEDS: PANTOPRAZOLE SOD 40 MG TABEC PO SCH (06:17)
[2018-06-12 07:38] VITALS: BP 138/56
[2018-06-12 08:55] VITALS: BMI 56.5
[2018-06-12] MEDS: PSYLLIUM 28% 1 PACKET PO SCH (08:56)
[2018-06-12] MEDS: ENOXAPARIN 30 MG/0.3 ML SYR SC SCH (08:57)
[2018-06-12] MEDS: hydrALAZINE HCL 25 MG TAB PO SCH ×3 (08:58→21:00)
[2018-06-12] MEDS: amLODIPine BESYL(*) 5 MG TAB PO SCH (08:58)
[2018-06-12] MEDS ORDERED: ENOXAPARIN 40 MG/0.4ML SYR SC SCH (09:00)
[2018-06-12] MEDS: DRONEDARONE HCL 400 MG TABLET PO SCH (09:01)
[2018-06-12] MEDS: NS(*) 0.9% 1000 ML BAG 1,000 ML IV PRN (09:22)
--- NOTE | 2018-06-12 10:29 | Hospitalist Progress Note ---
Subjective Progress Notes Subjective This patient was admitted for recurrent UTI. She had no acute changes overnight. Patient Complains of: Cardiovascular: No: Chest Pain Respiratory: No: Shortness of Breath Physical Exam Vital Signs Date Time Temp Pulse Resp B/P (MAP) Pulse Ox O2 Delivery O2 Flow Rate FiO2 06/12/18 07:44 94 Oxy Mask 15.0 06/12/18 07:38 97.6 60 20 138/56 (83) Intake and Output 06/12/18 07:00 Intake Total 100 ml Output Total 425 ml Balance -325 ml Intake Oral 100 ml Output Urine Total 425 ml Cardiovascular: Regular Rate and Rhythm Respiratory: Clear to Auscultation Result Diagram: 06/12/18 0606/12/18 06 Assessment and Plan Problems: (1) Recurrent UTI (urinary tract infection) Status: Chronic Assessment & Plan: She is on empiric treatment with cefepime. (2) Acute on chronic renal failure Status: Chronic Assessment & Plan: She appears to have pre-renal indices. Most likely due to poor intake and diuretic use.She is receiving IV fluids. (3) Hypothyroidism Status: Chronic Assessment & Plan: Continue replacement therapy. (4) Type II diabetes mellitus Onset Date: 04/10/2014 Status: Chronic Assessment & Plan: Place on ADA diet. Watch glucoses and use SSI as needed. (5) Hypertension Status: Chronic Assessment & Plan: Monitor BPs and resume her amlodipine and hydralazine as needed. (6) Atrial fibrillation Status: Chronic Assessment & Plan: She has been managed with Multaq 400mg daily. She has not been on chronic anticoagulation therapy. She is also not on any rate control medications at this time. She does have a pacemaker in place. (7) History of ventral hernia repair Status: Resolved Assessment & Plan: She appears to be healing fairly well. Central Venous Access Medical Necessity for Access: IV Access, Medication Administration Exam Sepsis Risk: No Definite Risk Problem Qualifiers (1) Acute on chronic renal failure: Acute renal failure type: unspecified Chronic kidney disease stage: stage 3 (moderate) Qualified Codes: N17.9 - Acute kidney failure, unspecified; N18.3 - Chronic kidney disease, stage 3 (moderate) ISABELLA HO DO Jun 12, 2018 10:29
[2018-06-12 11:31] VITALS: BP 124/70
[2018-06-12] MEDS: INSULIN HUM LISPRO 100 UN/ML 3 ML VIAL SUBQ PRN (11:40)
--- NOTE | 2018-06-12 11:45 | NUR ---
pt was alert and oriented this am but fatigued. pt is now confused and saying that her cats got loose and needed to get off of her. pt's resp are 28. pt reporting she doesn't feel well. reported to Dr. Avendano. no new orders at this time.
[2018-06-12 13:04] VITALS: BP 134/67
--- NOTE | 2018-06-12 13:09 | NUR ---
pt much more alert now and knows she is in the hospital. pt up in a chair at this time with feet elevated
[2018-06-12 14:07] VITALS: Ht 160 cm; Wt 144.7 kg
--- NOTE | 2018-06-12 14:08 | Medical Nutrition Therapy ---
Nutrition Anthropometrics Height (Inches): 63.00 Height (Calculated Centimeters: 160.538813 Weight (Pounds): 319 Weight (Calculated Kilograms): 144.951 BMI: 56.6 Napoleon Nutrition Score: Adequate Napoleon Nutrition Risk Score: 17 Dietary Referral Nutrition Risk Factors: Nutrition Risk Comment: no teeth on admission (dentures at home) Physical Findings Physical Appearance: Morbidly Obese 40+ Skin Appearance Skin Appearance: Edema Edema Location Modifier: Both Edema Location: Upper Extremity Type of Edema: Degree of Edema: 4+ Gastrointestinal Symptoms GI Symtoms: Tube Present: Bowel Sounds: Recent Bowel Pattern: Stool Characteristics: Nutritional Diagnosis Nutritional Risk Acuity 2: Chronic Renal Failure Nutritional Risk Acuity 3: Morbid Obesity Past Medical History: T2DM, hypothyroid, Chronic aurora and breast CA, CKD, HTN, Low iron lab 08/13/13 Readmit from d/c 1 day prior to new admit 05/23/18: Hypothyroid, chronic renal failure, HTN, malignant neoplasm of breast. Nutritional Acuity: 2-Moderate Nutrition Diagnosis: Over-weight/Obesity Nutrition Etiology: Physiological Causes Nutrition Problem/Etiology/Sym: Over-weight/obesity related to physiological causes as evidenced by BMI of 56.6. Energy Requirement: 2453 (MSJ. 1.1 TEF, 1.2 AF) Adjusted Energy Requirement Re: 1703 (-750 kcal) Protein Requirement: 87 (0.6 g AA/kg of BW) Fluid Requirement: 1962 (0.8 ml/kcal) Diet Type: Diabetic Nutrition Intervention: Cont diet as ordered, Check glucose Nutrition Monitoring & Eval Nutrition Goals: Eat 50-100% Meal RD Patient Assessment Time: [address] Assessment Type: RD Assessment Patient Nutrition Acuity: 2-Moderate Follow Up Date: Jun 15, 2018 Nutritional Comment: 06/12: Pt admitted for chronic UTI, chronic renal failure, hypothyroid, a-fib, DMT2, HTN. Pt has hx of T2DM, hypothyroid, Chronic aurora and breast CA, CKD, HTN, Low iron lab. 08/13/13, Readmit from d/c 1 day prior to new admit, 05/23/18: Hypothyroid, chronic renal failure, HTN, malignant neoplasm of breast. Pt is currently taking enoxaparin. Pt has elevated b-natriuretic peptide (281), RBG (159), WBG (146-162), creatinine (3.2), BUN (76), potassium (5.6). Pt is on a diabetetic diet with no intake reported. Monitor intake for updates. -ARMIDA LOWE Jun 12, 2018 09:14
[2018-06-12 19:38] VITALS: BP 118/76
[2018-06-12] MEDS: EXEMESTANE 25 MG TAB PO SCH ×2 (21:00→21:36)
[2018-06-12] MEDS ORDERED: SIMVASTATIN 20 MG TAB PO SCH (21:00)
[2018-06-12] MEDS: CEFEPIME HCL 1 GM VIAL IVP SCH (21:36)
[2018-06-12 23:12] VITALS: BP 133/89
[2018-06-13] MEDS: ACETAMINOPHEN 500 MG TAB PO PRN ×2 (00:28→11:45)
[2018-06-13] MEDS ORDERED: ACETAMINOPHEN 500 MG TAB ONE (00:29)
[2018-06-13] MEDS: NS(*) 0.9% 1000 ML BAG 1,000 ML IV PRN (02:27)
[2018-06-13] MEDS: PANTOPRAZOLE SOD 40 MG TABEC PO SCH (05:27)
[2018-06-13] MEDS: LEVOTHYROXINE SOD 0.05 MG TAB PO SCH (05:27)
[2018-06-13] MEDS ORDERED: FUROSEMIDE 40 MG/4 ML VIAL IVP ONE ×2 (08:55→11:25)
[2018-06-13] MEDS: DRONEDARONE HCL 400 MG TABLET PO SCH (09:37)
[2018-06-13] MEDS: PSYLLIUM 28% 1 PACKET PO SCH (09:37)
[2018-06-13] MEDS: amLODIPine BESYL(*) 5 MG TAB PO SCH (09:37)
[2018-06-13] MEDS: hydrALAZINE HCL 25 MG TAB PO SCH ×3 (09:37→14:46)
[2018-06-13 09:38] VITALS: BP 149/55
[2018-06-13] MEDS: ENOXAPARIN 30 MG/0.3 ML SYR SC SCH (09:38)
[2018-06-13 10:31] VITALS: BP 141/98
--- NOTE | 2018-06-13 11:44 | NUR ---
Physical Therapy Impression RN reports that pt is not appropriate medically for PT evaluation this date. Will re-attempt 06/14/18 as appropriate Physical Therapy Goals Patient's Goals
[2018-06-13 12:09] VITALS: BP 154/110
[2018-06-13 15:10] VITALS: BP 115/50
[2018-06-13 15:20] LABS: PLATELET COUNT, AUTOMATED 205 K/uL (150-450)
[2018-06-13] MEDS ORDERED: LORazepam 2 MG/ML VIAL IVP PRN (16:40)
[2018-06-13] MEDS ORDERED: MORPHINE 2 MG/ML SYR IVP PRN (16:40)
--- NOTE | 2018-06-13 18:15 | Transfer Summary (ECF/SWB) ---
Transfer Summary (ECF/SWB) Problems: (1) End of life care Status: Acute Assessment & Plan: Because of worsening respiratory status that can only be improved with acute dialysis, the patient and family have decided to pursue Comfort Care. I discussed with the patient the options. She understands that she will pass away without dialysis. Her family is in agreement with her decision and feel that she is clear in thinking. The patient is being moved to the [facility]. Ativan for anxiety. Morphine will be reserved only for air hunger discomfort because she has severe respiratory depression with the medication historically. Her family is agreement with the plan. (2) Respiratory failure Status: Acute Assessment & Plan: She has had progressive worsening of work of breathing and O2 requirement over the last 24 hours. It is secondary to pulmonary congestion from ARF and HFpEF exacerbation. BIPAP didn't give any relief. Aggressive diuresis was attempted with IV Lasix, but she failed to make any significant amount of urine. See above. (3) Heart failure with preserved left ventricular function (HFpEF) Status: Acute Assessment & Plan: Pt's weight is up from previous admissions. BNP elevated. EF preserved. (4) Acute on chronic renal failure Status: Chronic Assessment & Plan: She presented with an elevated creatinine from baseline. Hydration was attempted, but her creatinine didn't improved. Because of the worsening hypoxia and work of breathing, diuresis was attempted. Creatine has now worsened. She needs dialysis to relieve the volume overload, but the patient and family wish to pursue comfort care. (5) Recurrent UTI (urinary tract infection) Status: Chronic Assessment & Plan: She was on empiric treatment with cefepime, but that has been stopped. (6) Atrial fibrillation Status: Chronic Assessment & Plan: She has been managed with Multaq 400mg daily. She has not been on chronic anticoagulation therapy. She is also not on any rate control medications at this time. She does have a pacemaker in place. (7) History of ventral hernia repair Status: Resolved Assessment & Plan: She appears to be healing fairly well. Latest Vital Signs Vital Signs Date Time Temp Pulse Resp B/P (MAP) Pulse Ox O2 Delivery O2 Flow Rate FiO2 06/13/18 15:37 60.0 06/13/18 15:35 93 Bi-PAP 06/13/18 15:10 94.5 61 28 115/50 (71) 12.0 Result Diagram: 06/13/18 1511 06/13/18 1511 Condition: No Change Disposition: SNF/NH Treatment Goals and Plan Patient requires halfway for End of Life Care/Comfort Care and is ready for admission to Extended Care. Any change in condition is described below. Problem Qualifiers (1) Respiratory failure: Chronicity: acute (2) Acute on chronic renal failure: Acute renal failure type: unspecified Chronic kidney disease stage: stage 3 (moderate) Qualified Codes: N17.9 - Acute kidney failure, unspecified; N18.3 - Chronic kidney disease, stage 3 (moderate) JHONATAN ANDERSON MD Jun 13, 2018 18:15
== END 2018-06-13 17:25 | DRG 698 ==
LOC: ER 18:15 → MED 20:13
PROVIDERS: ADMIT Internal Medicine; ATTEND Internal Medicine
PROC: 5A09357 Assistance with Respiratory Ventilation, Less than 24 Consecutive Hours, Continuous Positive Airway Pressure (ICD-10-PCS; principal; 2018-06-11)
DX: T83.511A Infection and inflammatory reaction due to indwelling urethral catheter, initial encounter (principal); J96.01 Acute respiratory failure with hypoxia; I50.33 Acute on chronic diastolic (congestive) heart failure; N30.00 Acute cystitis without hematuria; I13.0 Hypertensive heart and chronic kidney disease with heart failure and stage 1 through stage 4 chronic kidney disease, or unspecified chronic kidney disease; N17.9 Acute kidney failure, unspecified; Z68.43 Body mass index [BMI] 50.0-59.9, adult; Z51.5 Encounter for palliative care; N18.3 Chronic kidney disease, stage 3 (moderate); E11.22 Type 2 diabetes mellitus with diabetic chronic kidney disease; R53.1 Weakness; E66.01 Morbid (severe) obesity due to excess calories; D64.9 Anemia, unspecified; E03.9 Hypothyroidism, unspecified; G47.30 Sleep apnea, unspecified; I48.2 Chronic atrial fibrillation; L57.0 Actinic keratosis; Z88.5 Allergy status to narcotic agent; Z88.8 Allergy status to other drugs, medicaments and biological substances; Z87.891 Personal history of nicotine dependence; Z95.0 Presence of cardiac pacemaker
CPT/HCPCS: 36415; 36416; 36600; 71045; 81001; 82040; 82247; 82310; 82374; 82435; 82565; 82803; 82947; 82948; 83605; 83880; 84075; 84132; 84155; 84295; 84450; 84460; 84484; 84520; 85025; 85610; 85730; 87040; 87077; 87088; 87186; 93005; 94640; 94660; 96374; 99284; C8929; J0692; J1650; J1940; J2930; J7030; Q9957

== ENCOUNTER → 2018-06-11 | Outpatient (CLI) | payer MEDICARE, OTHER ==
[2018-06-12 14:07] VITALS: BMI 56.5
== END ==
LOC: AMB 17:23
PROVIDERS: ATTEND Nurse Practitioner
DX: R06.02 Shortness of breath (principal)
CPT/HCPCS: A0425; A0427

== ENCOUNTER 2018-06-13 17:25 | Inpatient (IN) | payer MEDICARE, OTHER ==
[2018-06-12 14:07] VITALS: Wt 99.3 kg
[2018-06-13 17:30] VITALS: BP 118/57
[2018-06-13] MEDS ORDERED: PSYLLIUM 28% 1 PACKET PO SCH (18:14)
[2018-06-13] MEDS ORDERED: ACETAMINOPHEN 500 MG TAB PO PRN (18:14)
[2018-06-13] MEDS ORDERED: MORPHINE 2 MG/ML SYR IVP PRN (18:14)
[2018-06-13] MEDS ORDERED: DRONEDARONE HCL 400 MG TABLET PO SCH (18:14)
--- NOTE | 2018-06-13 20:30 | Consultant Pharmacy Review ---
Adult Remedial Education Instructor Review Pneumococcal Vaccine HX Pneumo Vac ([id number]): Yes (02/02) HX Pneumo Vac (Pneumovax): Yes (02/26) Comments Regarding the Review Patient is comfort care only. LIZZ CARIAS Jun 13, 2018 20:30
[2018-06-13] MEDS ORDERED: SCOPOLAMINE 1.5 MG PATCH TD PRN (21:00)
[2018-06-13] MEDS: LORazepam 2 MG/ML VIAL IVP PRN ×2 (21:09→22:21)
--- NOTE | 2018-06-13 23:57 | Death Summary ---
Pronounced Date: Jun 13, 2018 Pronounced Time: 23:40 Preliminary Cause of : Respiratory Failure secondary to HFpEF that was exacerbated by Acute on chronic renal insufficiency Assessment: Acute anemia Diabetes mellitus type 2 Morbid obesity Hyponatremia Urinary incontinence L renal mass, suspicious for malignancy History of breast cancer with radiation/chemo History of colon cancer History of Present Illness Please see admission history and physical for details. Hospital Course She was transferred to the [facility] this evening for comfort care. She did receive one dose of morphine at 1840 for air hunger and lorazepam at doses 2109 and 2221 for anxiety. She was found without spontaneous respirations at 2340. Copies to: FERNIE REID MD ; JHONATAN ANDERSON MD Jun 13, 2018 23:57
[2018-06-14] MEDS ORDERED: PSYLLIUM 28% 1 PACKET PO SCH (09:00)
[2018-06-14] MEDS ORDERED: PANTOPRAZOLE SOD 40 MG TABEC PO SCH (09:00)
[2018-06-14] MEDS ORDERED: DRONEDARONE HCL 400 MG TABLET PO SCH (09:00)
--- NOTE | 2018-06-15 08:01 | ECF History & Physical ---
Transfer Summary (ECF/SWB) Problems: (1) End of life care Status: Acute Assessment & Plan: Because of worsening respiratory status that can only be improved with acute dialysis, the patient and family have decided to pursue Comfort Care. I discussed with the patient the options. She understands that she will pass away without dialysis. Her family is in agreement with her decision and feel that she is clear in thinking. The patient is being moved to the [facility]. Ativan for anxiety. Morphine will be reserved only for air hunger discomfort because she has severe respiratory depression with the medication historically. Her family is agreement with the plan. (2) Respiratory failure Status: Acute Assessment & Plan: She has had progressive worsening of work of breathing and O2 requirement over the last 24 hours. It is secondary to pulmonary congestion from ARF and HFpEF exacerbation. BIPAP didn't give any relief. Aggressive diuresis was attempted with IV Lasix, but she failed to make any significant amount of urine. See above. (3) Heart failure with preserved left ventricular function (HFpEF) Status: Acute Assessment & Plan: Pt's weight is up from previous admissions. BNP elevated. EF preserved. (4) Acute on chronic renal failure Status: Chronic Assessment & Plan: She presented with an elevated creatinine from baseline. Hydration was attempted, but her creatinine didn't improved. Because of the worsening hypoxia and work of breathing, diuresis was attempted. Creatine has now worsened. She needs dialysis to relieve the volume overload, but the patient and family wish to pursue comfort care. (5) Recurrent UTI (urinary tract infection) Status: Chronic Assessment & Plan: She was on empiric treatment with cefepime, but that has been stopped. (6) Atrial fibrillation Status: Chronic Assessment & Plan: She has been managed with Multaq 400mg daily. She has not been on chronic anticoagulation therapy. She is also not on any rate control medications at this time. She does have a pacemaker in place. (7) History of ventral hernia repair Status: Resolved Assessment & Plan: She appears to be healing fairly well. Latest Vital Signs Vital Signs Date Time Temp Pulse Resp B/P (MAP) Pulse Ox O2 Delivery O2 Flow Rate FiO2 06/13/18 15:37 60.0 06/13/18 15:35 93 Bi-PAP 06/13/18 15:10 94.5 61 28 115/50 (71) 12.0 Result Diagram: 06/13/18 1511 06/13/18 1511 Condition: No Change Disposition: SNF/NH Treatment Goals and Plan Patient requires [facility] for End of Life Care/Comfort Care and is ready for admission to Extended Care. Any change in condition is described below. Problem Qualifiers (1) Respiratory failure: Chronicity: acute (2) Acute on chronic renal failure: Acute renal failure type: unspecified Chronic kidney disease stage: stage 3 (moderate) Qualified Codes: N17.9 - Acute kidney failure, unspecified; N18.3 - Chronic kidney disease, stage 3 (moderate) JHONATAN ANDERSON MD Jun 13, 2018 18:15 <Electronically signed by JHONATAN ANDERSON MD> D/ 14 14 14 NAYE/ALEKSANDRA CC: FERMÍN
[2018-06-16] MEDS ORDERED: PATCH REMOVAL 1 EA TP PRN (08:00)
== END 2018-06-13 23:40 | disposition expired | DRG 951 ==
LOC: ECF 17:25
PROVIDERS: ADMIT Internal Medicine; ATTEND Internal Medicine
DX: Z51.5 Encounter for palliative care (principal); I50.33 Acute on chronic diastolic (congestive) heart failure; J96.01 Acute respiratory failure with hypoxia; N17.9 Acute kidney failure, unspecified; N39.0 Urinary tract infection, site not specified; E87.1 Hypo-osmolality and hyponatremia; N18.3 Chronic kidney disease, stage 3 (moderate); I48.2 Chronic atrial fibrillation; D64.9 Anemia, unspecified; E11.22 Type 2 diabetes mellitus with diabetic chronic kidney disease; R32 Unspecified urinary incontinence; N28.89 Other specified disorders of kidney and ureter; Z85.038 Personal history of other malignant neoplasm of large intestine; Z85.3 Personal history of malignant neoplasm of breast; Z92.21 Personal history of antineoplastic chemotherapy; Z92.3 Personal history of irradiation
CPT/HCPCS: J2060; J2270